=== PATIENT | female | born 1955 | race Caucasian/White ===

== ENCOUNTER → 2020-04-22 12:26 | Outpatient (CLI) | payer OTHER, SELFPAY ==
--- NOTE | 2020-04-22 13:08 | CT_ITS ---
STUDY: CT ABDOMEN AND PELVIS WITHOUT CONTRAST REASON FOR EXAM: Female, 64 years old. Left abdomen pain, recurrent UTIs. Prior appendectomy, diabetes. Patient is also complaining of SOB, cough and sore throat. RADIATION DOSAGE (If Supplied By Facility): CTDIvol = ( 17.71 ) mGy, DLP = ( 875.86 ) mGycm TECHNIQUE: Transaxial images were obtained from the dome of the diaphragm to the symphysis pubis without oral contrast, and without intravenous contrast. Sagittal and coronal images were reconstructed. Individualized dose optimization techniques were used for this CT. COMPARISON: None. FINDINGS: Findings suggestive of scarring at the lung bases. Coronary artery calcification. Normal liver. The gallbladder is contracted. Normal spleen. Normal pancreas. Normal bilateral adrenal glands. Normal right kidney. Normal left kidney. Normal visualized stomach. Normal small intestine. Normal colon. The patient is status post appendectomy. There is scattered atherosclerotic calcification of the abdominal aorta, without a demonstrated aneurysm. Normal inferior vena cava. There is borderline retroperitoneal lymphadenopathy with enlarged nodes no greater than 10mm in the short axis diameter. Normal urinary bladder. Normal abdominal wall. There are degenerative changes of the visualized lumbar spine. CT/Abdomen/Pelvis without Cont IMPRESSION: No acute abnormality is seen. Findings suggestion of mild scarring at the lung bases. Electronically Signed: Nigel Fuller, at 14:57 EST , Service support ,
== END ==
PROVIDERS: PCP Nurse Practitioner Adult Health; Referring Provider Urology; Visit Provider Urology
DX: R10.9 Unspecified abdominal pain (principal); N39.0 Urinary tract infection, site not specified
CPT/HCPCS: 74176

== ENCOUNTER → 2021-03-18 12:36 | Outpatient (CLI) | payer OTHER, SELFPAY ==
--- NOTE | 2021-03-18 12:48 | EKG12_ITS ---
Test Reason : PREOP Blood Pressure : / mmHG Vent. Rate : 089 BPM Atrial Rate : 089 BPM P-R Int : 178 ms QRS Dur : 084 ms QT Int : 366 ms P-R-T Axes : 059 005 046 degrees QTc Int : 445 ms Sinus rhythm with Premature supraventricular complexes Low voltage QRS Nonspecific T wave abnormality Abnormal ECG Confirmed by TRACY BEJARANO, VIDAL ([id number]), digital editor ASHOK ALONSO ([id number]) on 03/21/2021 7:28:53 AM Referred By: Victor Manuel Sheehan Confirmed By:VIDAL MOLINA MD
--- NOTE | 2021-03-18 12:59 | CT_ITS ---
STUDY: LEFT LOWER EXTREMITY CT SCAN REASON FOR EXAM: Female, 65 years old. BI PRIMARY OSTEOARTHRITIS OF KNEE RADIATION DOSAGE (If Supplied By Facility): CTDIvol = ( 18.76 ) mGy, DLP = ( 1156.44 ) mGycm. Individualized dose optimization techniques were used for this CT.? TECHNIQUE: Axial multidetector CT scan of the left lower extremity. Coronal and sagittal reformatted images. COMPARISON: None. FINDINGS: Left hip: Mild left hip osteoarthritis. No acute fracture, dislocation or cortical destruction. Visualized intraabdominal/pelvic contents within normal limits. Minimal vascular calcifications. No muscle abnormality. Left knee: Severe medial compartment arthrosis. Mild lateral compartment arthrosis. Mild patellofemoral arthrosis. Small knee joint effusion. Moderate-sized popliteal cyst. Mild soft tissue swelling. No acute fracture, dislocation or cortical disruption. No muscle abnormality. Left ankle: Tiny Achilles enthesophyte. No significant osteoarthritic features. No acute fracture, dislocation or cortical destruction. No acute muscle abnormality. CT/Extremity Lower without Contra IMPRESSION: Left knee osteoarthritis predominating medially Left knee small joint effusion, moderate sized popliteal cyst and mild swelling Mild left hip osteoarthritis Tiny left Achilles enthesophyte Electronically Signed: Warren Nance DO at 13:42 EDT Tel , Service support ,
[2021-03-18 13:50] LABS: Absolute Lymphocyte Count 2.66 X10^3/uL (0.83-4.51); Absolute Neutrophil Count 6.8 X10^3/uL (2.0-7.7); Basophil# 0.04 X10^3/uL; Basophil% 0.4 % (0-1); Eosinophil# 0.25 X10^3/uL; Eosinophils% 2.4 % (0-5); Hematocrit 41.1 % (37-47); Hemoglobin 12.4 g/dL (12.0-15.0); Lymphocyte # 2.66 X10^3/ul (0.83-4.51); Lymphocyte % 25.1 % (19-41); Mean Corp Hgb Conc 30.2 g/dL (32-36); Mean Corpuscular Hgb 23.5 pg (27.0-32.0); Mean Platelet Vol. 8.8 fl (6.2-12.0); Monocyte# 0.77 X10^3/uL; Monocyte% 7.3 % (0-10); NRBC Flagged by Analyzer 0 % (0-5); Neutrophil # 6.83 X10^3/uL (2.7-7.7); Neutrophil % 64.3 % (47-70); Platelet Count 353 K/mm3 (150-450); RBC Distribution Width CV 16.9 % (11.6-14.6); RBC Distribution Width SD 47.3 fl (35.1-43.9); Red Blood Count 5.27 M/mm3 (4.2-5.4); White Blood Count 10.6 K/mm3 (4.4-11.0)
[2021-03-18 14:10] LABS: Hemoglobin A1c 6.7 % (3.8-5.6)
[2021-03-18 14:25] LABS: Anion Gap 7 (5-15); BUN 12 mg/dL (7-18); BUN/Creat Ratio 17.5 RATIO (10-20); Calcium,Total 9.3 mg/dL (8.5-10.1); Chloride 101 mmol/L (98-107); Creatinine, Serum 0.69 mg/dL (0.55-1.02); EST Glomerular Filtration Rate 92 mL/min (>60); Est Glom Filt Rate - Afr Amer 111 mL/min (>60); Glucose 112 mg/dL (74-106); Potassium 3.9 mmol/L (3.5-5.1); Sodium Level 137 mmol/L (136-145)
== END ==
PROVIDERS: PCP Nurse Practitioner Adult Health; Referring Provider Physician Assistant; Visit Provider Physician Assistant
DX: M17.0 Bilateral primary osteoarthritis of knee (principal); Z01.818 Encounter for other preprocedural examination; Z01.810 Encounter for preprocedural cardiovascular examination
CPT/HCPCS: 36415; 73700; 80048; 83036; 85025; 93005

== ENCOUNTER → 2021-03-30 | Outpatient (CLI) | payer OTHER, SELFPAY ==
--- NOTE | 2021-03-30 | KNEE_PTH ---
PATIENT: GE SANDERS [facility] U#:[id number] AGE/SX: 65/F ROOM: RE03/30/[address]: Dr. Leo Arnold DO : 1955 BED: DIS: 03/30/2021 SPEC #: [id number] RECD: 03/30/21 15:06 STATUS: MIRELA REQ #: [id number] RAMESH: 03/30/21 00:[address]: Leo Arnold DEPT: SURGICAL PATHOLOGY RECD BY: Yolande Clements ENTERED: 03/31/21 09:04 SP TYPE: TOTAL KNEE OTHR DR: LAUREEN Prado [facility] Tissues: Knee, NOS Procedures: Decalcification bone/plaque Surgery Specimen Level IV HEADER OPERATION: Robotic-assisted left total knee arthroscopy PRE-OP DIAGNOSIS: Osteoarthritis of left knee TISSUE SUBMITTED: Bone left knee MICROSCOPIC DIAGNOSIS Bone and tissue of left knee, total knee resection: Severe degenerative joint disease. Mild synovial hyperplasia. AM:leidy 04/06/2021 MICROSCOPIC DESCRIPTION Slides are reviewed. GROSS DESCRIPTION Received is one container designated bone and soft tissue left knee. The specimen consists of multiple fragments of ryan-yellow bone measuring in aggregate 9 x 8 x 3.5 cm. Also in the specimen container are multiple fragments of yellow-white soft tissue measuring in aggregate 7 x 6 x 3 cm. A number of bony fragments contain articular surfaces consistent with tibial plateau and femoral condyle and displaying prominent osteophyte formation and bone erosion. Small Craft Operator sections are submitted in two cassettes as follows: 1 - soft tissue, 2 - bone after decalcification. / SJ:leidy 03/31/21 TC:5 [facility]: [id number]
== END | disposition home or self-care (01) ==
PROVIDERS: PCP Nurse Practitioner Adult Health; Visit Provider Orthopaedic Surgery
DX: M17.12 Unilateral primary osteoarthritis, left knee (principal)
CPT/HCPCS: 88305; 88311

== ENCOUNTER → 2022-04-12 | Outpatient (CLI) | payer OTHER, SELFPAY ==
--- NOTE | 2022-04-12 15:05 | US_ITS ---
EXAM: US RETROPERITONEAL LIMITED, RENAL CLINICAL INDICATION: UTI TECHNIQUE: Limited grayscale and color Doppler sonographic evaluation of the retroperitoneum was performed. This report was created using [employer] report [employer] technology. COMPARISON: None. FINDINGS: RIGHT KIDNEY: Right kidney measures 10 cm in length. No hydronephrosis. No shadowing calculus. No perinephric collection is demonstrated. LEFT KIDNEY: Left kidney measures 13.3 cm in length. No hydronephrosis. No shadowing calculus. No perinephric collection is demonstrated. BLADDER: Urinary bladder is normal. OTHER FINDINGS: Liver echogenicity appears increased suggesting diffuse parenchymal liver disease, likely steatosis. US/Kidney and Bladder IMPRESSION: Normal renal ultrasound. Parenchymal liver disease. Electronically Signed: Thai Nuñez MD at 16:15 EDT ,
== END | disposition home or self-care (01) ==
LOC: US 15:02
PROVIDERS: PCP Nurse Practitioner Adult Health; Referring Provider Urology; Visit Provider Urology
DX: N39.0 Urinary tract infection, site not specified (principal)
CPT/HCPCS: 76770

== ENCOUNTER 2023-01-05 17:38 | Inpatient (IN) | payer MEDICARE, SELFPAY ==
[2023-01-05 17:44] VITALS: BP 110/71; PULSE 87; RESP 14; TEMP 36.2; O2SAT 92
[2023-01-05 20:01] VITALS: BMI 36.4
--- NOTE | 2023-01-05 20:26 | ED.VIS.CHEST ---
HPI History of Present Illness Chief Complaint: Weakness Detail of Chief Complaint: Indigestion. 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 Previously was on H2 taras. That was decreased. States the last several days she has had midsternal indigestion. Was seen at [place] and evaluation was discharged home. She has been using Pepto-Bismol and Tums and now has been giving her as much relief. Worse with eating. She is able to swallow. Denies any fever. No cardiac history. Prior Similar Symptoms: Yes Recent Illness/Hospitalization: No CVD Risk Factors: Negative for Hypertension PE Risk Factors: Negative for Recent Travel/Surgery, Recent Immobilization, Prior DVT or PE, Cancer or OCP + Smoking + >/=35 TAD Risk Factors: Negative for Marfan's Syndrome PFSH PFSH Home Medications duloxetine 30 mg capsule,delayed release 30 mg PO DAILY 08/11/16 [History Last Taken Unknown] glipizide 10 mg tablet, extended release 24 hr (Glucotrol XL) 10 mg PO BID 08/11/16 [History Last Taken Unknown] hydrochlorothiazide 25 mg tablet 25 mg PO DAILY 08/11/16 [History Last Taken Unknown] levothyroxine 125 mcg tablet 125 mcg PO DAILY 08/11/16 [History Last Taken Unknown] losartan 50 mg-hydrochlorothiazide 12.5 mg tablet 1 ea PO DAILY 08/11/16 [History Last Taken Unknown] pramipexole 0.5 mg tablet (Mirapex) 0.5 mg PO QHS 08/11/16 [History Last Taken Unknown] sitagliptin phosphate 50 mg-metformin 1,000 mg tablet (Janumet) 1 tab PO BIDCM 08/11/16 [History Last Taken Unknown] metformin 1,000 mg tablet 1,000 mg PO BID 01/05/23 [History Last Taken Unknown] Allergy/AdvReac Type Severity Reaction Status Date / Time clarithromycin [From Biaxin] AdvReac Other Verified 01/05/23 17:43 moexipril [From Univasc] AdvReac Other Verified 01/05/23 17:43 sulfamethoxazole AdvReac Other Verified 01/05/23 17:43 [From Bactrim] trimethoprim [From Bactrim] AdvReac Other Verified 01/05/23 17:43 Social History Smoking Status: Former smoker ROS ROS ED ROS Narrative In just Review of Systems ROS Unobtainable: Denies due to encephalopathy Constitutional Constitutional ED: Denies chills Eyes Eyes: Reports none ENT ENT ED: Denies ear pain Cardiovascular Cardiovascular: Reports chest pain; Denies palpitations or racing heartbeat Respiratory/Chest Respiratory/Chest: Denies cough or dyspnea Gastrointestinal Gastrointestinal: Denies abdominal pain, constipation, diarrhea, melena, nausea or vomiting Genitourinary Genitourinary ED: Denies dysuria Musculoskeletal Musculoskeletal: Denies arthralgias Integumentary Denies abscess Neurologic Neurologic: Denies headache(s) Psychiatric Psychiatric: Denies anxiety Endocrine Endocrinology: Denies cold intolerance Hematologic/Lymphatic Hematologic/Lymphatic: Denies easy bleeding Allergic/Immunologic Allergic/Immunologic ED: Denies mouth swelling EXAM Physical Exam Narrative Exam Narrative: Female no acute distress. Vital signs stable afebrile. HEENT exam unremarkable. Neck nontender. Lungs clear to auscultation bilaterally. Heart regular rhythm no murmur. Abdomen soft nontender. Normal bowel sounds no peritoneal signs. Moving all 4 extremities. Calves are nontender that edema or cords. Equal symmetrical radial pulses. Chest wall nontender. She is awake and alert. No focal motor deficits. Const Vital Signs: 01/05/23 17:44 01/05/23 20:00 01/05/23 20:24 Temperature 97.1 F L Temperature Source Temporal Pulse Rate 87 Respiratory Rate 14 Respiratory Effort Normal Non-Labored Respiratory Pattern Normal Blood Pressure 110/71 Blood Pressure Mean 84 Pulse Ox 92 Oxygen Delivery Method Room Air Room Air Positive well nourished and well developed; Negative for cachectic, contractures or unkempt General Appearance ED: well developed and NAD; Negative for unkempt, cachectic, contractures or pallor Nutritional Appearance: Negative for cachectic HEENT Reports moist mucous membranes normocephalic and atraumatic; Negative for trauma or tenderness Eyes PERRL and EOMs intact bilaterally General Eye ED: Negative for pale conjunctiva or scleral icterus Neck no lymphadenopathy, supple and no JVD General: Negative for tenderness Chest Wall inspection of chest normal and palpation of chest normal Chest: Negative for tenderness Resp normal respiratory effort and clear to auscultation bilaterally Effort and Inspection: Negative for respiratory distress Auscultation: Negative for rales, rhonchi or wheezes Cardio regular rate, regular rhythm, S1 normal heart sound, S2 normal heart sound and no murmurs Peripheral Pulses: pulses 2+ throughout GI normal to inspection, nondistended, normoactive bowel sounds, soft to palpation, non-tender, non-distended and no masses Auscultation: Negative for hyperactive bowel sounds Back/Spine no CVA tenderness and no thoracic nor lumbar tenderness General Back: Negative for CVA tenderness Cervical Spine: Negative for cervical spine tenderness Extremity normal to inspection General Extremety ED: Negative for edema, pulses abnormal or tenderness General Extremity: Negative for edema or pulses abnormal Neuro oriented x3 and CN's II-XII intact bilaterally Sensorium / Orientation: awake, alert, oriented to person, oriented to place and oriented to time; Negative for confused, lethargic or stuporous Psych mental status grossly normal Appearance: Negative for unkempt Attitude: No agitated Mood & Affect: Negative for depressed, anxious or tearful Skin no rashes or lesions noted and no wounds General Skin Exam: Negative for jaundice or pallor Rashes: No rashes noted Trauma: Negative for abrasion or laceration Heart Score History: Slightly/Non-Suspicious ECG: Normal Age: >/= 65 years Risk Factors: 1 or 2 Risk Factors Troponin: </= Normal Limit Score: 3 MDM MDM MDM Narrative Medical decision making narrative: 67-year-old diabetic female with a history of Anna's. No cardiac history. Has not had midsternal chest pain sounds like indigestion. She is able to swallow I gave her a glass of water. Does not appear to be type of esophageal obstruction. She undergo cardiac work-up however I think this is GI. She will be given Protonix IV and a GI cocktail. Repeat exam at 10:30 PM patient resting comfortably. Still has discomfort. GI cocktail did limited relief. She and I went over test results. With her abnormal EKG and elevated troponin she will be admitted for further cardiac evaluation. I will have them placed Nitropaste. She also be given aspirin. History & Record Review Discussion w/independent historian: Patient Lab Data Attestation: I reviewed the patient's lab results. Lab results narrative: CBC shows white count 13. H&H 14 and 45. Platelets 334. Electrolytes show a gap of 9. BUN and creatinine 26 0.9. Glucose 142. Troponins elevated 148. Chest x-ray is unremarkable. Labs: Laboratory Results - last 24 hr 01/05/23 20:40 WBC 13.0 H RBC 5.57 H Hgb 14.5 Hct 45.5 MCV 81.7 MCH 26.0 L MCHC 31.9 L RDW Std Deviation 48.7 H RDW Coeff of Jonel 16.4 H Plt Count 334 MPV 9.1 Immature Gran % (Auto) 0.500 Neut % (Auto) 72.9 H Lymph % (Auto) 19.5 Mccormick % (Auto) 6.1 Eos % (Auto) 0.7 Baso % (Auto) 0.3 Absolute Neuts (auto) 9.5 H Absolute Lymphs (auto) 2.53 Nucleated RBC % 0 Sodium 136 Potassium 3.7 Chloride 97 L Carbon Dioxide 30.0 Anion Gap 9 BUN 26 H Creatinine 0.95 Estim Creat Clear Calc 57.41 Est GFR (MDRD) Af Amer 76 Est GFR (MDRD) Non-Af 63 BUN/Creatinine Ratio 27.3 H Glucose 142 H Calcium 9.6 Troponin I High Sens 148 H* Radiography Chest X-Ray - ED: Read by ED Physician, Read by Radiologist, Mediastinum, Bony Structures, No Acute Disease and Chronic Changes Diagnostic Testing: Clinical Impression(s) from Imaging Studies Chest X-Ray 01/05/23 20:45 IMPRESSION: Mild hyperinflation and discoid atelectasis or scarring in the left lower lobe. No acute cardiopulmonary pathology Electronically Signed: Houston Tate MD at 21:10 EDT , Chest x-ray, portable, single view shows no acute abnormality. Normal cardiac silhouette. Normal mediastinum. Interpreted both by the radiologist and myself. Rhythm Strip Rhythm Strip: Sinus Rhythm Rate: 93 Ectopy: None EKG Initial EKG: Attestation: I personally reviewed and interpreted this EKG as follows: Interpretation: Sinus Rhythm and No Acute Injury Pattern Comments: Normal sinus rhythm. Rate of 93. No acute signs of ST elevation. There is some ST flattening in the lateral leads V1 through V6. Discharge Plan Dx/Rx/DC Orders Clinical Impression: Elevated troponin, History of diabetes mellitus, Chest pain Disposition Disposition: Acute Care Hospital [facility]
--- NOTE | 2023-01-05 20:45 | RAD_ITS ---
STUDY: X-RAY CHEST REASON FOR EXAM: Female, 67 years old. chest pain TECHNIQUE: AP portable COMPARISON: None. FINDINGS: Lungs are mildly hyperinflated. Minor discoid atelectasis or scarring in left lower lobe.. There is no demonstrated pleural abnormality. Normal size heart. Normal mediastinum and abigail. Normal visualized pulmonary arteries. Normal visualized aortic arch and descending thoracic aorta. Normal visualized thoracic spine. Normal visualized ribs, clavicles, and shoulders. Postop change status post cervical fusion. There is no demonstrated abnormality of the visualized soft tissue structures of the upper abdomen. RAD/Chest 1 View (Portable) IMPRESSION: Mild hyperinflation and discoid atelectasis or scarring in the left lower lobe. No acute cardiopulmonary pathology Electronically Signed: Houston Tate MD at 21:10 EDT ,
[2023-01-05 20:50] LABS: Absolute Lymphocyte Count 2.53 X10^3/uL (0.83-4.51); Absolute Neutrophil Count 9.5 X10^3/uL (2.0-7.7); Basophil# 0.04 X10^3/uL; Basophil% 0.3 % (0-1); Eosinophil# 0.09 X10^3/uL; Eosinophils% 0.7 % (0-5); Hematocrit 45.5 % (37-47); Hemoglobin 14.5 g/dL (12.0-15.0); Lymphocyte # 2.53 X10^3/ul (0.83-4.51); Lymphocyte % 19.5 % (19-41); Mean Corp Hgb Conc 31.9 g/dL (32-36); Mean Corpuscular Volume 81.7 fL (81-99); Mean Platelet Vol. 9.1 fl (6.2-12.0); Monocyte# 0.79 X10^3/uL; Monocyte% 6.1 % (0-10); NRBC Flagged by Analyzer 0 % (0-5); Neutrophil # 9.48 X10^3/uL (2.7-7.7); Neutrophil % 72.9 % (47-70); Platelet Count 334 K/mm3 (150-450); RBC Distribution Width CV 16.4 % (11.6-14.6); RBC Distribution Width SD 48.7 fl (35.1-43.9); Red Blood Count 5.57 M/mm3 (4.2-5.4)
[2023-01-05] MEDS: Mag Hydrox/Al Hydrox/Simeth 30 ML UDC PO (20:53)
[2023-01-05 21:00] VITALS: RESP 16
[2023-01-05 21:16] LABS: Anion Gap 9 (5-15); BUN 26 mg/dL (7-18); BUN/Creat Ratio 27.3 RATIO (10-20); Calcium,Total 9.6 mg/dL (8.5-10.1); Chloride 97 mmol/L (98-107); Creatinine, Serum 0.95 mg/dL (0.55-1.02); EST Glomerular Filtration Rate 63 mL/min (>60); Est Glom Filt Rate - Afr Amer 76 mL/min (>60); Estimated Creatinine Clearance 57.41 ml/min; Glucose 142 mg/dL (74-106); Potassium 3.7 mmol/L (3.5-5.1); Sodium Level 136 mmol/L (136-145); Troponin-I HS 148 pg/mL (3.0-54.0)
[2023-01-05 22:35] VITALS: BP 128/76; PULSE 88; RESP 19; TEMP 36.3; O2SAT 96
--- NOTE | 2023-01-05 22:35 | HP.PCM.HOS_ITS ---
HPI - General General Date of Admission: 01/05/23 Date of Service: 01/05/23 Chief Complaint: Chest pain HPI Narrative GE SANDERS, is a 67 F with a significant history of Anna's esophagitis and diabetes mellitus who presents emergency department with 5-day history of persistent chest pain. She described chest pain as heartburn. The chest pain radiated into her esophagus where she has a feeling of a lump. She denies any aggravating factors or chest pain. She used to take Pepto-Bismol and Tums which used to give her some relief but ideal presentation she did not have any relief from Pepto-Bismol or Tums so she came to emergency department. Of note 5 days ago patient was evaluated at [facility] for shortness of breath and hypertension. She reported that nothing was done for her at [facility]. [facility] Medical History (Updated 01/06/23 @ 00:38 by Nely Zamarripa) Anemia Barretts esophagus Chronic pain COPD (chronic obstructive pulmonary disease) Diabetes Fibromyalgia Former smoker Hypertension Hyperthyroidism Home Medications duloxetine 30 mg capsule,delayed release 30 mg PO DAILY 08/11/16 [History Last Taken Unknown] glipizide 10 mg tablet, extended release 24 hr (Glucotrol XL) 10 mg PO BID 08/11/16 [History Last Taken Unknown] hydrochlorothiazide 25 mg tablet 25 mg PO DAILY 08/11/16 [History Last Taken Unknown] levothyroxine 125 mcg tablet 125 mcg PO DAILY 08/11/16 [History Last Taken Unknown] losartan 50 mg-hydrochlorothiazide 12.5 mg tablet 1 ea PO DAILY 08/11/16 [History Last Taken Unknown] pramipexole 0.5 mg tablet (Mirapex) 0.5 mg PO QHS 08/11/16 [History Last Taken Unknown] sitagliptin phosphate 50 mg-metformin 1,000 mg tablet (Janumet) 1 tab PO BIDCM 08/11/16 [History Last Taken Unknown] metformin 1,000 mg tablet 1,000 mg PO BID 01/05/23 [History Last Taken Unknown] Allergy/AdvReac Type Severity Reaction Status Date / Time clarithromycin [From Biaxin] AdvReac Other Verified 01/05/23 17:43 moexipril [From Univasc] AdvReac Other Verified 01/05/23 17:43 sulfamethoxazole AdvReac Other Verified 01/05/23 17:43 [From Bactrim] trimethoprim [From Bactrim] AdvReac Other Verified 01/05/23 17:43 Family History (Updated 01/06/23 @ 00:37 by Nely Zamarripa) Father S/P CABG x 3 Social History Smoking Status: Former smoker ROS ROS Narrative Pertinent positives and pertinent negatives as noted in HPI. All other systems were reviewed and are negative Vital Signs Vital Signs Vital Signs: 01/05/23 17:44 01/05/23 20:00 01/05/23 20:24 Temperature 97.1 F L Temperature Source Temporal Pulse Rate 87 Respiratory Rate 14 Respiratory Effort Normal Non-Labored Respiratory Pattern Normal Blood Pressure 110/71 Blood Pressure Mean 84 Pulse Ox 92 Oxygen Delivery Method Room Air Room Air Weight Weight: 105.4 kg Body Mass Index (BMI) 36.4 Physical Exam Narrative Physical exam: General: Well-nourished, well-developed. Head: Normocephalic, atraumatic, no tenderness Eyes: Vision is grossly intact. EOMI ENT, no trauma, moist mucous membranes, no rhinorrhea Neck: Nontender, No thyromegaly. CVS: Regular rate and rhythm. S1-S2 present. No murmur, gallop or rub. Respiratory : clear to auscultation bilaterally, chest wall nontender Abdomen: Soft, nontender, nondistended, normal bowel sounds, no masses : Deferred Back: Nontender, no CVA tenderness, no midline spinal tenderness, deformities, step-offs Extremities: Nontender full range of motion, no trauma Skin: Normal color, no trauma, abrasions Neuro: Alert, oriented, cranial nerves II through XII grossly intact. Psychiatry: Normal mood. Normal affect. Not depressed. Not anxious. Results Lab / Micro Data 01/05/23 20:40 01/05/23 20:40 Labs: Laboratory Results - last 24 hr 01/05/23 20:40: WBC 13.0 H, RBC 5.57 H, Hgb 14.5, Hct 45.5, MCV 81.7, MCH 26.0 L , MCHC 31.9 L, RDW Std Deviation 48.7 H, RDW Coeff of Jonel 16.4 H, Plt Count 334, MPV 9.1, Immature Gran % (Auto) 0.500, Neut % (Auto) 72.9 H, Lymph % (Auto) 19.5, [place] % (Auto) 6.1, Eos % (Auto) 0.7, Baso % (Auto) 0.3, Absolute Neuts (auto) 9.5 H, Absolute Lymphs (auto) 2.53, Nucleated RBC % 0, Sodium 136, Potassium 3.7, Chloride 97 L, Carbon Dioxide 30.0, Anion Gap 9, BUN 26 H, Creatinine 0.95, Estim Creat Clear Calc 57.41, Est GFR (MDRD) Af Amer 76, Est GFR (MDRD) Non-Af 63, BUN/Creatinine Ratio 27.3 H, Glucose 142 H, Calcium 9.6, Troponin I High Sens 148 H* Radiology Impression Chest X-Ray 01/05/23 20:45 IMPRESSION: Mild hyperinflation and discoid atelectasis or scarring in the left lower lobe. No acute cardiopulmonary pathology Electronically Signed: Houston Tate MD at 21:10 EDT , Assessment & Plan Assessment/Plan (1) NSTEMI, initial episode of care: PLAN: Plan Non-STEMI With chest pain and elevated troponin although patient has history of Anna's esophagitis and GERD as differential diagnosis; NSTEMI is also very probable. Essentially Lovenox x1 dose ordered. Patient received full dose aspirin in the emergency department. Daily aspirin continued. GI cocktail ordered emergency department did not have any appreciable effect. Nitroglycerin paste to the emergency department and continued. EKG showed anterolateral ST depressions and T wave flattening. Radiologist impression of chest x-ray: Mild hyperinflation and discoid atelectasis or scarring in the left lower lobe. No acute cardiopulmonary pathology Hospitalist independent interpretation of chest x-ray: Agrees with radiology interpretation. Place on a monitored bed at progressive care unit ASA 81 mg p.o. daily ordered We will check lipid panel. Stat EKG as needed for chest pain Keep n.p.o. after midnight. Cardiology consult. Diabetes mellitus Blood glucose is stable Hold home hypoglycemic regimen Cardiac diabetic diet. N.p.o. after midnight. Monitor Accu-Cheks Correction scale insulin ordered. Hypertension Blood pressure is not within goal Home blood pressure medication continued. Trend blood pressure and adjust blood pressure medications. DVT prophylaxis ordered: Received therapeutic dose of Lovenox emergency department. Time spent in the patient's overall evaluation,decision-making process, review of diagnostic data, adjustment of management, discussion with other providers, nursing nursing and ancillary staff involved in patient's care documentation, 65 minutes. Charges/Coding Visit Charges Inpatient E&M: 04958 Init Hosp L3
[2023-01-05 23:00] VITALS: BP 128/76; PULSE 88; RESP 14; O2SAT 95
[2023-01-05 23:02] VITALS: BP 128/76; PULSE 90
[2023-01-05] MEDS: Nitroglycerin Oint 1 INCH PACKET TD (23:02)
[2023-01-05] MEDS: Aspirin 325 MG Tablet PO (23:02)
--- NOTE | 2023-01-05 23:03 | EKG12_ITS ---
Test Reason : PCI Blood Pressure : / mmHG Vent. Rate : 052 BPM Atrial Rate : 052 BPM P-R Int : 212 ms QRS Dur : 094 ms QT Int : 518 ms P-R-T Axes : 077 -34 -88 degrees QTc Int : 481 ms Sinus bradycardia with 1st degree A-V block Left axis deviation Pulmonary disease pattern Confirmed by TRACY BEJARANO, VIDAL ([id number]), editor index ASHOK ALONSO ([id number]) on 01/09/2023 7:15:38 AM Referred By: Jakub Dennis Confirmed By:VIDAL MOLINA MD
--- NOTE | 2023-01-05 23:52 | ECHOCS_ITS ---
Reason For Study: NSTEMI Procedure This was a 2D Doppler, Color Flow transthoracic echocardiogram. The study was technically difficult. Contrast injection was performed. Exam performed portable in patient room. Left Ventricle Normal LV size. Mild concentric left ventricular hypertrophy. The left ventricular ejection fraction is 40 %. Posterior and inferior hypokinesis. Right Ventricle Normal right ventricle. Atria The left and right atria are normal. Mitral Valve Trivial mitral valve insufficiency. Tricuspid Valve Normal tricuspid valve. Aortic Valve Normal aortic valve. Pulmonic Valve The pulmonic valve is not well visualized. Great Vessels Normal sized aortic root. Pericardium/Pleural No pericardial effusion. Medication Diluted definity 2ml given slow IV push to enhance endocardial definition. MMode/2D Measurements & Calculations LVIDd: 5.6 cm IVSd: 1.2 cm Ao root diam: 2.7 cm LVIDs: 4.3 cm LVPWd: 1.1 cm FS: 22.2 % LAV(MOD-bp): 37.6 ml LVAd ap4: 35.6 cm2 SV(MOD-sp4): 43.0 ml LAV(MOD-bp) Indexed: 17.7 ml/m2 LVLd ap4: 8.5 cm LAV(MOD-sp2): 29.1 ml EDV(MOD-sp4): 123.8 ml LAV(MOD-sp4): 43.5 ml EDV(sp4-el): 125.9 ml LVAs ap4: 26.7 cm2 LVLs ap4: 7.6 cm ESV(MOD-sp4): 80.8 ml ESV(sp4-el): 79.9 ml EF(MOD-sp4): 34.7 % EF(sp4-el): 36.5 % SV(sp4-el): 46.0 ml LA A4 area: 16.5 cm2 LA dimension(2D): 4.2 cm RA A4 area: 12.1 cm2 TAPSE: 2.1 cm Time Measurements MV dec time: 0.17 sec Doppler Measurements & Calculations MV E max ramesh: 41.3 cm/sec Lat Peak E' Ramesh: 14.8 cm/sec Med Peak E' Ramesh: 5.3 cm/sec MV A max ramesh: 76.8 cm/sec E/E' lat: 2.8 E/E' med: 7.7 MV E/A: 0.54 MV V2 max: 59.9 cm/sec MV dec slope: 242.7 cm/sec2 Ao V2 max: 117.9 cm/sec MV max P.4 mmHg Ao max P.6 mmHg MV V2 mean: 36.6 cm/sec Ao V2 mean: 83.6 cm/sec MV mean P.58 mmHg Ao mean P.2 mmHg MV V2 VTI: 18.5 cm Ao V2 VTI: 24.3 cm AV (velocity ratio): 0.75 LV V1 max: 92.8 cm/sec PA V2 max: 134.6 cm/sec LV V1 max P.4 mmHg PA V2 mean: 84.0 cm/sec LV V1 mean P.1 mmHg LV V1 mean: 68.8 cm/sec LV V1 VTI: 18.3 cm ECHO/Echo Complete W/ Contrast Interpretation Summary Mild concentric left ventricular hypertrophy. The left ventricular ejection fraction is 40-45 %. Posterior and inferior hypokinesis. The study was technically difficult. Ordering Physician: Jakub Dennis Referring Physician: Jakub Dennis Performed By: Sariah Martínez RCS
[2023-01-06] VITALS (10 sets, daily range): BP systolic 106–138; BP diastolic 58–77; PULSE 70–95; RESP 12–20; TEMP 36.7–36.8; O2SAT 92–95; BMI 35.2
[2023-01-06 00:32] LABS: Bedside Glucose 110 mg/dL (74-106)
[2023-01-06] MEDS: Enoxaparin 100 MG/ML Syringe SC (00:40)
[2023-01-06] MEDS: Zolpidem Tartrate 5 MG Tablet PO ×2 (01:44→21:26)
[2023-01-06 02:19] LABS: Troponin-I HS 753 pg/mL (3.0-54.0)
[2023-01-06 03:13] LABS: Absolute Lymphocyte Count 3.33 X10^3/uL (0.83-4.51); Absolute Neutrophil Count 6.9 X10^3/uL (2.0-7.7); Basophil# 0.06 X10^3/uL; Basophil% 0.5 % (0-1); Eosinophil# 0.13 X10^3/uL; Eosinophils% 1.2 % (0-5); Hematocrit 43.7 % (37-47); Hemoglobin 13.8 g/dL (12.0-15.0); Lymphocyte # 3.33 X10^3/ul (0.83-4.51); Lymphocyte % 29.8 % (19-41); Mean Corp Hgb Conc 31.6 g/dL (32-36); Mean Corpuscular Hgb 25.8 pg (27.0-32.0); Mean Corpuscular Volume 81.7 fL (81-99); Mean Platelet Vol. 9.3 fl (6.2-12.0); Monocyte# 0.74 X10^3/uL; Monocyte% 6.6 % (0-10); NRBC Flagged by Analyzer 0 % (0-5); Neutrophil # 6.89 X10^3/uL (2.7-7.7); Neutrophil % 61.5 % (47-70); Platelet Count 314 K/mm3 (150-450); RBC Distribution Width CV 16.2 % (11.6-14.6); RBC Distribution Width SD 48.2 fl (35.1-43.9); Red Blood Count 5.35 M/mm3 (4.2-5.4); White Blood Count 11.2 K/mm3 (4.4-11.0)
[2023-01-06 04:13] LABS: Anion Gap 7 (5-15); BUN 22 mg/dL (7-18); BUN/Creat Ratio 32.1 RATIO (10-20); Chloride 101 mmol/L (98-107); Cholesterol 203 mg/dL (200); Creatinine, Serum 0.69 mg/dL (0.55-1.02); EST Glomerular Filtration Rate 91 mL/min (>60); Est Glom Filt Rate - Afr Amer 111 mL/min (>60); Estimated Creatinine Clearance 79.05 ml/min; Glucose 105 mg/dL (74-106); High Density Lipoprotein 53 mg/dL; Potassium 3.7 mmol/L (3.5-5.1); Sodium Level 139 mmol/L (136-145); Triglycerides 214 mg/dL; Very Low Density Lipoprotein 43 mg/dL (5-40)
[2023-01-06 04:34] LABS: Troponin-I HS 814 pg/mL (3.0-54.0)
[2023-01-06] MEDS: Levothyroxine 125 MCG Tablet PO (06:35)
[2023-01-06] MEDS: Nitroglycerin Oint 1 INCH PACKET TD ×2 (06:35→11:59)
[2023-01-06 07:07] LABS: Bedside Glucose 135 mg/dL (74-106)
--- NOTE | 2023-01-06 08:36 | PCM.PN.HOSP ---
Reason for Visit Reason for Visit: Diagnoses Non-ST elevation (NSTEMI) myocardial infarction (01/05/23) Subjective Subjective Patient reports no chest pain at present, does have nitro patch on reports she just got up and ambulated to bathroom was feeling dizzy and just sat back down still feeling slightly dizzy, blood pressure 106/67 with a heart rate within normal limits and no abnormalities on telemetry and O2 sat of 90 to 91%. Wiped off Nitropaste and patient was feeling better from a dizzy perspective but still has headache. Discussed with patient's RN, will monitor closely but nitro can be as needed for now. Presently no chest pain or shortness of breath or swelling in extremities Objective Data Objective Data Vital Signs: Vital Signs Temp Pulse Resp BP Pulse Ox O2 Del Method O2 Flow Rate 98.2 F 95 16 112/67 92 Nasal Cannula 2 01/06/23 06:30 01/06/23 06:30 01/06/23 06:30 01/06/23 06:30 01/06/23 06:30 01/06/23 08:12 01/06/23 08:12 Oxygen Flow Rate (L/min) 2 Oxygen Delivery Method Nasal Cannula Weight: 102 kg Body Mass Index (BMI) 35.2 Intake & Output: Intake and Output for Last 24 Hours 01/04/23 01/05/23 01/06/23 23:59 23:59 23:59 Intake Total 110 / 110 120 / 120 Balance 110 / 110 120 / 120 Lab / Micro Data 01/06/23 03:05 01/06/23 03:05 Labs: Laboratory Results - last 24 hr 01/05/23 20:40: WBC 13.0 H, RBC 5.57 H, Hgb 14.5, Hct 45.5, MCV 81.7, MCH 26.0 L, MCHC 31.9 L, RDW Std Deviation 48.7 H, RDW Coeff of Jonel 16.4 H, Plt Count 334, MPV 9.1, Immature Gran % (Auto) 0.500, Neut % (Auto) 72.9 H, Lymph % (Auto) 19.5, [place] % (Auto) 6.1, Eos % (Auto) 0.7, Baso % (Auto) 0.3, Absolute Neuts (auto) 9.5 H, Absolute Lymphs (auto) 2.53, Nucleated RBC % 0, Sodium 136, Potassium 3.7, Chloride 97 L, Carbon Dioxide 30.0, Anion Gap 9, BUN 26 H, Creatinine 0.95, Estim Creat Clear Calc 57.41, Est GFR (MDRD) Af Amer 76, Est GFR (MDRD) Non-Af 63, BUN/Creatinine Ratio 27.3 H, Glucose 142 H, Calcium 9.6, Troponin I High Sens 148 H* 01/06/23 00:04: POC Glucose 110 H 01/06/23 01:15: Troponin I High Sens 753 H* 01/06/23 03:05: WBC 11.2 H, RBC 5.35, Hgb 13.8, Hct 43.7, MCV 81.7, MCH 25.8 L, MCHC 31.6 L, RDW Std Deviation 48.2 H, RDW Coeff of Jonel 16.2 H, Plt Count 314, MPV 9.3, Immature Gran % (Auto) 0.400, Neut % (Auto) 61.5, Lymph % (Auto) 29.8, [place] % (Auto) 6.6, Eos % (Auto) 1.2, Baso % (Auto) 0.5, Absolute Neuts (auto) 6.9, Absolute Lymphs (auto) 3.33, Nucleated RBC % 0, Sodium 139, Potassium 3.7, Chloride 101, Carbon Dioxide 31.0, Anion Gap 7, BUN 22 H, Creatinine 0.69, Estim Creat Clear Calc 79.05, Est GFR (MDRD) Af Amer 111, Est GFR (MDRD) Non-Af 91, BUN/Creatinine Ratio 32.1 H, Glucose 105, Calcium 9.0, Troponin I High Sens 814 H*, Triglycerides 214 H, Cholesterol 203 H, LDL Cholesterol 107, VLDL Cholesterol 43 H, HDL Cholesterol 53 01/06/23 06:27: POC Glucose 135 H Radiography Diagnostic Testing: Radiology Impression Chest X-Ray 01/05/23 20:45 IMPRESSION: Mild hyperinflation and discoid atelectasis or scarring in the left lower lobe. No acute cardiopulmonary pathology Electronically Signed: Houston Tate MD at 21:10 EDT Reading Location ID and State: [facility]– [place] / [place] , Service support , Rhythm Strip Rhythm Strip: Sinus Rhythm Rate: 93 Ectopy: None Physical Exam Narrative General: Alert, oriented, no apparent distress HEENT: Atraumatic, normocephalic Eyes: Anicteric, normal conjunctiva, extraocular movements grossly intact Neck: Supple Respiratory: Clear to auscultation bilaterally, normal respiratory effort Cardiovascular: Regular rate and rhythm GI: Soft, nontender, nondistended Extremities: No edema Musculoskeletal: Moving all extremities Neuro: No overt focal neurological deficits Skin: No rashes appreciated Psych: Cooperative Assessment & Plan Assessment/Plan (1) NSTEMI, initial episode of care: PLAN: Plan #Non-STEMI -Type 1 vs type 2 -Trop in ED 148 and updtrended to 814 -EKG in ED w/ anterolateral ST depressions and T wave flattening -Full dose lovenox -full dose asa -Daily asa -Nitro paste -We will check lipid panel. -Stat EKG as needed for chest pain -Keep n.p.o. after midnight -Cardiology consult. -01/06: LDL 107 with triglycerides of 214 and total cholesterol 203. Patient evaluated by cardiology, patient heart cath on Sunday. Patient got dizzy with Nitropaste on, no chest pain, will make this as needed #Leukocytosis -Suspect reactive -Downtrending #Diabetes mellitus type II -Blood glucose is stable -Hold home hypoglycemic regimen -Cardiac diabetic diet. N.p.o. after midnight. -Monitor Accu-Cheks -Correction scale insulin ordered. -01/06: Last A1c 6.7 in 2020, will order A1c #Hypertension -Blood pressure is not within goal -Home blood pressure medication continued. -Trend blood pressure and adjust blood pressure medications. -01/06: Continue HCTZ, losartan. Patient has heart cath on Sunday, given her BP on the low side with heart cath pending we will hold losartan for #Hypothyroidism -Continue Synthroid -We will check TSH DVT prophylaxis ordered: Received therapeutic dose of Lovenox emergency department. Time spent in the patient's overall evaluation,decision-making process, review of diagnostic data, adjustment of management, discussion with other providers, nursing nursing and ancillary staff involved in patient's care documentation, 51 minutes. Charges/Coding Visit Charges Inpatient E&M: 42484 [facility] [place] [facility] L3
[2023-01-06] MEDS: Losartan Potassium 50 MG Tablet PO (09:37)
[2023-01-06] MEDS: DULoxetine Hcl 30 MG Capsule PO ×2 (09:37→21:32)
[2023-01-06] MEDS: hydroCHLOROthiazide 25 MG Tablet PO (09:37)
[2023-01-06] MEDS: Aspirin 81 MG TAB.CHEW PO (09:37)
--- NOTE | 2023-01-06 11:12 | CON.PCM.CA_ITS ---
Assessment & Plan Assessment/Plan (1) NSTEMI, initial episode of care: PLAN: Presently pain-free. Continue aspirin. Start low-dose beta-blockers. Nitrates. Check echo. Recommend cardiac catheterization with coronary angiography and possible revascularization. Risks benefits and alternatives explained. She understand these and wishes to proceed. She will be scheduled for Sunday. (2) Chest pain: PLAN: See #1 above. (3) History of diabetes mellitus: PLAN: As per internal medicine. (4) Dyslipidemia: PLAN: Start statins. HPI Consult Data Date of Consult: 01/06/23 HPI Narrative Reason for Consultation: Chest pain and elevated troponin. HPI Narrative: Patient has past medical history significant for hypertension, Anna's esophagus, COPD, diabetes mellitus and fibromyalgia. She presented to the emergency room with complaints of chest pain that started about a week ago. Acc ording to her, it was intermittent initially but more persistent yesterday. Describes it as anterior pressure. No radiation to the arm neck or jaw. No associated shortness of breath. No diaphoresis. She was noted to have elevated troponins. Per patient, yesterday she realized that exertion made her chest discomfort worse. [facility] Medical History (Updated 01/06/23 @ 11:[address] Allegra Genao MD) Anemia Barretts esophagus Chronic pain COPD (chronic obstructive pulmonary disease) Diabetes Fibromyalgia Former smoker Hypertension Hyperthyroidism Home Medications duloxetine 30 mg capsule,delayed release 30 mg PO DAILY 08/11/16 [History Last Taken Unknown] glipizide 10 mg tablet, extended release 24 hr (Glucotrol XL) 10 mg PO BID 08/11/16 [History Last Taken Unknown] hydrochlorothiazide 25 mg tablet 25 mg PO DAILY 08/11/16 [History Last Taken Unknown] levothyroxine 125 mcg tablet 125 mcg PO DAILY 08/11/16 [History Last Taken Unknown] losartan 50 mg-hydrochlorothiazide 12.5 mg tablet 1 ea PO DAILY 08/11/16 [History Last Taken Unknown] pramipexole 0.5 mg tablet (Mirapex) 0.5 mg PO QHS 08/11/16 [History Last Taken Unknown] sitagliptin phosphate 50 mg-metformin 1,000 mg tablet (Janumet) 1 tab PO BIDCM 08/11/16 [History Last Taken Unknown] metformin 1,000 mg tablet 1,000 mg PO BID 01/05/23 [History Last Taken Unknown] Allergy/AdvReac Type Severity Reaction Status Date / Time clarithromycin [From Biaxin] AdvReac Other Verified 01/05/23 17:43 moexipril [From Univasc] AdvReac Other Verified 01/05/23 17:43 sulfamethoxazole AdvReac Other Verified 01/05/23 17:43 [From Bactrim] trimethoprim [From Bactrim] AdvReac Other Verified 01/05/23 17:43 Family History (Updated 01/06/23 @ 00:37 by Nely Zamarripa) Father S/P CABG x 3 Social History Smoking Status: Former smoker Physical Exam Narrative Comfortable. No distress. Heart sounds 1 and 2 are normal. No murmurs or rubs are noted. Chest clear to auscultation bilaterally. No crepitations. Abdomen soft. Alert oriented x3. No ankle edema noted. Risk Stratification Risk Stratification Applicable: No Objective Data Vital Signs: Vital Signs Temp Pulse Resp BP Pulse Ox O2 Del Method O2 Flow Rate 98.3 F 85 18 122/71 H 94 Nasal Cannula 3 01/06/23 09:32 01/06/23 09:32 01/06/23 09:32 01/06/23 09:32 01/06/23 09:32 01/06/23 09:32 01/06/23 09:32 Oxygen Flow Rate (L/min) 3 Oxygen Delivery Method Nasal Cannula Weight: 224 lb 13.944 oz Body Mass Index (BMI) 35.2 Intake & Output: Intake and Output for Last 24 Hours 01/04/23 01/05/23 01/06/23 23:59 23:59 23:59 Intake Total 110 / 110 120 / 120 Balance 110 / 110 120 / 120 Lab / Micro Data Attestation: I reviewed the patient's lab results. 01/06/23 03:05 01/06/23 03:05 Labs: Laboratory Results - last 24 hr 01/05/23 20:40: WBC 13.0 H, RBC 5.57 H, Hgb 14.5, Hct 45.5, MCV 81.7, MCH 26.0 L , MCHC 31.9 L, RDW Std Deviation 48.7 H, RDW Coeff of Jonel 16.4 H, Plt Count 334, MPV 9.1, Immature Gran % (Auto) 0.500, Neut % (Auto) 72.9 H, Lymph % (Auto) 19.5, [place] % (Auto) 6.1, Eos % (Auto) 0.7, Baso % (Auto) 0.3, Absolute Neuts (auto) 9.5 H, Absolute Lymphs (auto) 2.53, Nucleated RBC % 0, Sodium 136, Potassium 3.7, Chloride 97 L, Carbon Dioxide 30.0, Anion Gap 9, BUN 26 H, Creatinine 0.95, Estim Creat Clear Calc 57.41, Est GFR (MDRD) Af Amer 76, Est GFR (MDRD) Non-Af 63, BUN/Creatinine Ratio 27.3 H, Glucose 142 H, Calcium 9.6, Troponin I High Sens 148 H* 01/06/23 00:04: POC Glucose 110 H 01/06/23 01:15: Troponin I High Sens 753 H* 01/06/23 03:05: WBC 11.2 H, RBC 5.35, Hgb 13.8, Hct 43.7, MCV 81.7, MCH 25.8 L, MCHC 31.6 L, RDW Std Deviation 48.2 H, RDW Coeff of Jonel 16.2 H, Plt Count 314, MPV 9.3, Immature Gran % (Auto) 0.400, Neut % (Auto) 61.5, Lymph % (Auto) 29.8, [place] % (Auto) 6.6, Eos % (Auto) 1.2, Baso % (Auto) 0.5, Absolute Neuts (auto) 6.9, Absolute Lymphs (auto) 3.33, Nucleated RBC % 0, Sodium 139, Potassium 3.7, Chloride 101, Carbon Dioxide 31.0, Anion Gap 7, BUN 22 H, Creatinine 0.69, Estim Creat Clear Calc 79.05, Est GFR (MDRD) Af Amer 111, Est GFR (MDRD) Non-Af 91, BUN/Creatinine Ratio 32.1 H, Glucose 105, Calcium 9.0, Troponin I High Sens 814 H*, Triglycerides 214 H, Cholesterol 203 H, LDL Cholesterol 107, VLDL Cholesterol 43 H, HDL Cholesterol 53 01/06/23 06:27: POC Glucose 135 H Rhythm Strip Rhythm Strip: Sinus Rhythm Rate: 93 Ectopy: None Cardiology Labs/Tests 01/05/23 20:40: WBC 13.0 H, RBC 5.57 H, Hgb 14.5, Hct 45.5, MCV 81.7, MCH 26.0 L , MCHC 31.9 L, Plt Count 334, MPV 9.1, Immature Gran % (Auto) 0.500, Neut % (Auto) 72.9 H, Lymph % (Auto) 19.5, [place] % (Auto) 6.1, Eos % (Auto) 0.7, Baso % (Auto) 0.3, Absolute Neuts (auto) 9.5 H, Nucleated RBC % 0, Sodium 136, Potassium 3.7, Chloride 97 L, Carbon Dioxide 30.0, Anion Gap 9, BUN 26 H, Creatinine 0.95, Est GFR (MDRD) Af Amer 76, Est GFR (MDRD) Non-Af 63, BUN/Creatinine Ratio 27.3 H, Glucose 142 H, Calcium 9.6 01/06/23 03:05: WBC 11.2 H, RBC 5.35, Hgb 13.8, Hct 43.7, MCV 81.7, MCH 25.8 L, MCHC 31.6 L, Plt Count 314, MPV 9.3, Immature Gran % (Auto) 0.400, Neut % (Auto) 61.5, Lymph % (Auto) 29.8, [place] % (Auto) 6.6, Eos % (Auto) 1.2, Baso % (Auto) 0.5, Absolute Neuts (auto) 6.9, Nucleated RBC % 0, Sodium 139, Potassium 3.7, Chloride 101, Carbon Dioxide 31.0, Anion Gap 7, BUN 22 H, Creatinine 0.69, Est GFR (MDRD) Af Amer 111, Est GFR (MDRD) Non-Af 91, BUN/Creatinine Ratio 32.1 H, Glucose 105, Calcium 9.0, Triglycerides 214 H, Cholesterol 203 H, LDL Cho lesterol 107, VLDL Cholesterol 43 H, HDL Cholesterol 53 Rhythm: Sinus EKG: Normal sinus rhythm. Nonspecific ST changes ECHO: Stress Test: Cardiac Cath: PCI: CT Surgery: Holter monitor: EPS: PPM: CXR: Chest CT Scan: Radiography Diagnostic Testing: Radiology Impression Chest X-Ray 01/05/23 20:45 IMPRESSION: Mild hyperinflation and discoid atelectasis or scarring in the left lower lobe. No acute cardiopulmonary pathology Electronically Signed: Houston Tate MD at 21:10 EDT ,
[2023-01-06] MEDS: Atorvastatin Calcium 20 MG Tablet PO ×2 (11:52→21:26)
[2023-01-06] MEDS: Metoprolol Tartrate 25 MG Tablet PO ×2 (11:52→21:26)
[2023-01-06] MEDS: Acetaminophen 325 MG Tablet 650 MG PO (11:53)
[2023-01-06 12:01] LABS: Bedside Glucose 119 mg/dL (74-106)
--- NOTE | 2023-01-06 12:07 | CASEMGMT ---
According to [facility]'s website, the following tertiary facilities are in network: [facility], [place], [facility], [facility], [facility], [facility] and .
--- NOTE | 2023-01-06 13:00 | CASEMGMT ---
PO GIL Assessment: Face to Face with pt for initial transition planning/care coordination assessment. RN LOUISE introduced self and role at [facility], pt voices understanding and consents to assessment. Pt is A/O x4 and answers all questions appropriately at this time. Pt sitting up in chair in no distress with at bedside. Care providers, pharmacy, and demographics verified/updated. Admitting Dx: NSTEMI PCP:Ruth Saunders [employer] Specialists:Nico GI; Deandre, pulm; Scott, opt; Exten, Ortho OR Preferred Pharmacy: [facility] Insurance: [employer] Prescription Benefit: yes LNOK: Refugio Henderson, Living Arrangements: Pt lives with in a single story home with 2 steps to enter. Pt reports she is I in ADL's. Pt recently broke her foot and is in a surgical shoe. Pt denies concerns at home. Transportation: Pt drives self and denies concerns with transportation. DME/HHC/SNF: Pt has a pox, BP cuff, w/c, FWW, grab bars in the bathroom, BGM with sufficient supplies. Pt does not use AD. Pt denies hx of HHC or SNF stays. Pt states no concerns with going home at time of dc. Pt states no further concerns/needs. CM to follow. Advised pt to ask CM if any further question/concerns/needs arise, voices understanding. Pt Goal: Home Plan: Home
[2023-01-06] MEDS: Insulin Lispro 100 UNIT/ML INSULN.PEN SC (18:47)
[2023-01-06] MEDS: traMADol 50 MG Tablet PO (18:48)
[2023-01-06 19:19] LABS: Bedside Glucose 186 mg/dL (74-106)
[2023-01-06] MEDS: Pramipexole Di-HCl 0.5 MG Tablet PO (21:32)
[2023-01-07] VITALS (8 sets, daily range): BP systolic 119–129; BP diastolic 67–80; PULSE 60–77; RESP 12–18; TEMP 36.6–36.9; O2SAT 92–95
[2023-01-07] MEDS: traMADol 50 MG Tablet PO (02:38)
[2023-01-07 06:01] LABS: Absolute Lymphocyte Count 2.85 X10^3/uL (0.83-4.51); Absolute Neutrophil Count 5.3 X10^3/uL (2.0-7.7); Basophil# 0.06 X10^3/uL; Basophil% 0.6 % (0-1); Eosinophil# 0.33 X10^3/uL; Eosinophils% 3.5 % (0-5); Hematocrit 44.7 % (37-47); Lymphocyte # 2.85 X10^3/ul (0.83-4.51); Lymphocyte % 30.1 % (19-41); Mean Corp Hgb Conc 31.3 g/dL (32-36); Mean Corpuscular Hgb 26.3 pg (27.0-32.0); Mean Corpuscular Volume 83.9 fL (81-99); Mean Platelet Vol. 9.3 fl (6.2-12.0); Monocyte# 0.86 X10^3/uL; Monocyte% 9.1 % (0-10); NRBC Flagged by Analyzer 0 % (0-5); Neutrophil # 5.34 X10^3/uL (2.7-7.7); Neutrophil % 56.3 % (47-70); Platelet Count 328 K/mm3 (150-450); RBC Distribution Width SD 48.8 fl (35.1-43.9); Red Blood Count 5.33 M/mm3 (4.2-5.4); White Blood Count 9.5 K/mm3 (4.4-11.0)
[2023-01-07] MEDS: Levothyroxine 125 MCG Tablet PO (06:01)
[2023-01-07 06:28] LABS: Bedside Glucose 147 mg/dL (74-106)
[2023-01-07 06:57] LABS: Anion Gap 5 (5-15); BUN 21 mg/dL (7-18); Calcium,Total 9.5 mg/dL (8.5-10.1); Chloride 97 mmol/L (98-107); Creatinine, Serum 0.81 mg/dL (0.55-1.02); EST Glomerular Filtration Rate 76 mL/min (>60); Est Glom Filt Rate - Afr Amer 92 mL/min (>60); Estimated Creatinine Clearance 67.34 ml/min; Glucose 143 mg/dL (74-106); Potassium 3.7 mmol/L (3.5-5.1); Sodium Level 136 mmol/L (136-145); Thyroid Stim Hormone (TSH) 2.71 uIU/mL (0.358-3.74)
[2023-01-07] MEDS: DULoxetine Hcl 30 MG Capsule PO ×2 (08:45→21:11)
[2023-01-07] MEDS: hydroCHLOROthiazide 25 MG Tablet PO (08:46)
[2023-01-07] MEDS: Aspirin 81 MG TAB.CHEW PO (08:46)
[2023-01-07] MEDS: Metoprolol Tartrate 25 MG Tablet PO ×2 (08:47→21:12)
--- NOTE | 2023-01-07 08:55 | PN.HOSP_ITS ---
Reason for Visit Reason for Visit: Diagnoses Hyperlipidemia, unspecified (01/05/23) Non-ST elevation (NSTEMI) myocardial infarction (01/05/23) Chest pain, unspecified (01/05/23) Personal history of other endocrine, nutritional and metabolic disease (01/05/23) Subjective Subjective Reports feeling tired at the moment as she received Ambien and takes tramadol but while laying there has no other acute complaints. Did get up and clean herself up and felt a little chest discomfort when she laid back down and went away. No other acute complaints aside from patient has been constipated no bowel movement in 3 days and asked for something to help her bowels move Objective Data Objective Data Vital Signs: Vital Signs Temp Pulse Resp BP Pulse Ox O2 Del Method O2 Flow Rate 97.8 F 77 16 119/67 92 Room Air 3 01/07/23 08:43 01/07/23 08:47 01/07/23 08:43 01/07/23 08:47 01/07/23 08:43 01/07/23 08:43 01/06/23 09:32 Oxygen Flow Rate (L/min) 3 Oxygen Delivery Method Room Air Weight: 102 kg Body Mass Index (BMI) 35.2 Intake & Output: Intake and Output for Last 24 Hours 01/05/23 01/06/23 01/07/23 23:59 23:59 23:59 Intake Total 110 / 110 360 / 460 200 / 200 Balance 110 / 110 360 / 460 200 / 200 Lab / Micro Data 01/07/23 05:24 01/07/23 05:24 Labs: Laboratory Results - last 24 hr 01/06/23 11:32: POC Glucose 119 H 01/06/23 18:41: POC Glucose 186 H 01/07/23 05:24: WBC 9.5, RBC 5.33, Hgb 14.0, Hct 44.7, MCV 83.9, MCH 26.3 L, MCHC 31.3 L, RDW Std Deviation 48.8 H, RDW Coeff of Jonel 16.0 H, Plt Count 328, MPV 9.3, Immature Gran % (Auto) 0.400, Neut % (Auto) 56.3, Lymph % (Auto) 30.1, [place] % (Auto) 9.1, Eos % (Auto) 3.5, Baso % (Auto) 0.6, Absolute Neuts (auto) 5.3, Absolute Lymphs (auto) 2.85, Nucleated RBC % 0, Sodium 136, Potassium 3.7, Chloride 97 L, Carbon Dioxide 34.0 H, Anion Gap 5, BUN 21 H, Creatinine 0.81, Estim Creat Clear Calc 67.34, Est GFR (MDRD) Af Amer 92, Est GFR (MDRD) Non-Af 76, BUN/Creatinine Ratio 26.0 H, Glucose 143 H, Calcium 9.5, TSH 2.71 01/07/23 05:57: POC Glucose 147 H Radiography Diagnostic Testing: Radiology Impression Echocardiogram 01/05/23 23:52 Interpretation Summary Mild concentric left ventricular hypertrophy. The left ventricular ejection fraction is 40-45 %. Posterior and inferior hypokinesis. The study was technically difficult. Ordering Physician: Jakub Dennis Referring Physician: Jakub Dennis Performed By: Sariah Martínez RCS Rhythm Strip Rhythm Strip: Sinus Rhythm Rate: 93 Ectopy: None Physical Exam Narrative General: Alert, oriented, no apparent distress HEENT: Atraumatic, normocephalic Eyes: Anicteric, normal conjunctiva, extraocular movements grossly intact Neck: Supple Respiratory: Clear to auscultation bilaterally, normal respiratory effort Cardiovascular: Regular rate and rhythm GI: Soft, nontender, nondistended Extremities: No edema Musculoskeletal: Moving all extremities Neuro: No overt focal neurological deficits Skin: No rashes appreciated Psych: Cooperative Assessment & Plan Assessment/Plan (1) NSTEMI, initial episode of care: PLAN: Plan #Non-STEMI -Type 1 vs type 2 -Trop in ED 148 and updtrended to 814 -EKG in ED w/ anterolateral ST depressions and T wave flattening -Full dose lovenox -full dose asa -Daily asa -Nitro paste -We will check lipid panel. -Stat EKG as needed for chest pain -Keep n.p.o. after midnight -Cardiology consult. -01/06: LDL 107 with triglycerides of 214 and total cholesterol 203. Patient evaluated by cardiology, patient heart cath on Sunday. Patient got dizzy with Nitropaste on, no chest pain, will make this as needed -01/07: N.p.o. at midnight, for heart cath tomorrow, has not required the Nitropaste and chest pain that she developed when she was up and exerting herself resolved when she laid back down. Continue full dose Lovenox given concern for NSTEMI type I and patient having symptoms consistent with unstable angina. Scheduled dosing in computer for twice daily #Leukocytosis -Suspect reactive -Downtrending -01/07: Resolved #Diabetes mellitus type II -Blood glucose is stable -Hold home hypoglycemic regimen -Cardiac diabetic diet. N.p.o. after midnight. -Monitor Accu-Cheks -Correction scale insulin ordered. -01/06: Last A1c 6.7 in 2020, will order A1c -01/07: Appears fairly well controlled, presently on low-dose sliding scale #Hypertension -Blood pressure is not within goal -Home blood pressure medication continued. -Trend blood pressure and adjust blood pressure medications. -01/06: Continue HCTZ, losartan. Patient has heart cath on Sunday, given her BP on the low side with heart cath pending we will hold losartan for -01/07: Has been very well controlled, will hold HCTZ due to its diuretic properties and heart cath tomorrow as well as good control of BP. Continue metoprolol #Hypothyroidism -Continue Synthroid -We will check TSH -01/07: TSH within normal limits DVT prophylaxis ordered: Received therapeutic dose of Lovenox emergency department, will continue therapeutic dose Lovenox due to concern for NSTEMI type I patient with symptoms at the moment consistent with unstable angina Time spent in the patient's overall evaluation,decision-making process, review of diagnostic data, adjustment of management, discussion with other providers, nursing nursing and ancillary staff involved in patient's care documentation, 36 minutes. Charges/Coding Visit Charges Inpatient E&M: 04936 Subs Hosp L2
[2023-01-07 09:10] LABS: Hemoglobin A1c 6.9 % (3.8-5.6)
[2023-01-07] MEDS: Insulin Lispro 100 UNIT/ML INSULN.PEN SC ×3 (11:57→21:30)
[2023-01-07] MEDS: Enoxaparin 100 MG/ML Syringe SC ×2 (12:01→21:10)
[2023-01-07] MEDS: Polyethylene Glycol 3350 17 GM PACKET PO ×2 (12:01→21:10)
[2023-01-07 12:30] LABS: Bedside Glucose 153 mg/dL (74-106)
--- NOTE | 2023-01-07 13:00 | PN.CARD_ITS ---
Subjective Subjective No further episodes of chest pain. Objective Data Vital Signs: Vital Signs Temp Pulse Resp BP Pulse Ox O2 Del Method O2 Flow Rate 97.8 F 77 16 119/67 95 Room Air 3 01/07/23 08:43 01/07/23 08:47 01/07/23 08:43 01/07/23 08:47 01/07/23 09:00 01/07/23 09:00 01/06/23 09:32 Oxygen Flow Rate (L/min) 3 Oxygen Delivery Method Room Air Weight: 224 lb 13.944 oz Body Mass Index (BMI) 35.2 Intake & Output: Intake and Output for Last 24 Hours 01/05/23 01/06/23 01/07/23 23:59 23:59 23:59 Intake Total 110 / 110 360 / 460 440 / 440 Balance 110 / 110 360 / 460 440 / 440 Lab / Micro Data 01/07/23 05:24 01/07/23 05:24 Labs: Laboratory Results - last 24 hr 01/06/23 18:41: POC Glucose 186 H 01/07/23 05:24: WBC 9.5, RBC 5.33, Hgb 14.0, Hct 44.7, MCV 83.9, MCH 26.3 L, M CHC 31.3 L, RDW Std Deviation 48.8 H, RDW Coeff of Jonel 16.0 H, Plt Count 328, MPV 9.3, Immature Gran % (Auto) 0.400, Neut % (Auto) 56.3, Lymph % (Auto) 30.1, [place] % (Auto) 9.1, Eos % (Auto) 3.5, Baso % (Auto) 0.6, Absolute Neuts (auto) 5.3, Absolute Lymphs (auto) 2.85, Nucleated RBC % 0, Sodium 136, Potassium 3.7, Chloride 97 L, Carbon Dioxide 34.0 H, Anion Gap 5, BUN 21 H, Creatinine 0.81, Estim Creat Clear Calc 67.34, Est GFR (MDRD) Af Amer 92, Est GFR (MDRD) Non-Af 7 6, BUN/Creatinine Ratio 26.0 H, Glucose 143 H, Hemoglobin A1c 6.9 H, Calcium 9.5, TSH 2.71 01/07/23 05:57: POC Glucose 147 H 01/07/23 11:53: POC Glucose 153 H Rhythm Strip Rhythm Strip: Sinus Rhythm Rate: 93 Ectopy: None Cardiology Labs/Tests 01/07/23 05:24: WBC 9.5, RBC 5.33, Hgb 14.0, Hct 44.7, MCV 83.9, MCH 26.3 L, MCHC 31.3 L, Plt Count 328, MPV 9.3, Immature Gran % (Auto) 0.400, Neut % (Auto) 56.3, Lymph % (Auto) 30.1, [place] % (Auto) 9.1, Eos % (Auto) 3.5, Baso % (Auto) 0.6, Absolute Neuts (auto) 5.3, Nucleated RBC % 0, Sodium 136, Potassium 3.7, Chloride 97 L, Carbon Dioxide 34.0 H, Anion Gap 5, BUN 21 H, Creatinine 0.81, Est GFR (MDRD) Af Amer 92, Est GFR (MDRD) Non-Af 76, BUN/Creatinine Ratio 26.0 H , Glucose 143 H, Hemoglobin A1c 6.9 H, Calcium 9.5 Rhythm: EKG: ECHO: Stress Test: Cardiac Cath: PCI: CT Surgery: Holter monitor: EPS: PPM: CXR: Chest CT Scan: Radiography Diagnostic Testing: Radiology Impression Echocardiogram 01/05/23 23:52 Interpretation Summary Mild concentric left ventricular hypertrophy. The left ventricular ejection fraction is 40-45 %. Posterior and inferior hypokinesis. The study was technically difficult. Ordering Physician: Jakub Dennis Referring Physician: Jakub Dennis Performed By: Sariah Martínez RCS Physical Exam Narrative Comfortable. No distress. Heart sounds 1 and 2 are normal. No murmurs or rubs are noted. Chest clear to auscultation bilaterally. No crepitations. Abdomen soft. Alert oriented x3. No ankle edema noted. Assessment & Plan Assessment/Plan (1) NSTEMI, initial episode of care: PLAN: Presently pain-free. Continue aspirin. Start low-dose beta-blockers. Nitrates. Check echo. For coronary angiography tomorrow. (2) Chest pain: PLAN: See #1 above. (3) History of diabetes mellitus: PLAN: As per internal medicine. (4) Dyslipidemia: PLAN: Start statins.
[2023-01-07 17:51] LABS: Bedside Glucose 159 mg/dL (74-106)
[2023-01-07] MEDS: Acetaminophen 325 MG Tablet 650 MG PO (20:16)
[2023-01-07] MEDS: Atorvastatin Calcium 20 MG Tablet PO (21:12)
[2023-01-07] MEDS: Pramipexole Di-HCl 0.5 MG Tablet PO (21:26)
[2023-01-07 21:58] LABS: Bedside Glucose 178 mg/dL (74-106)
[2023-01-08] VITALS (17 sets, daily range): BP systolic 90–145; BP diastolic 53–87; PULSE 50–74; RESP 16–18; TEMP 36.1–37.2; O2SAT 92–98
[2023-01-08] MEDS: Acetaminophen 325 MG Tablet 650 MG PO ×2 (03:24→19:51)
[2023-01-08] MEDS: Levothyroxine 125 MCG Tablet PO (05:04)
[2023-01-08 05:50] LABS: Absolute Lymphocyte Count 3.26 X10^3/uL (0.83-4.51); Absolute Neutrophil Count 3.9 X10^3/uL (2.0-7.7); Basophil# 0.05 X10^3/uL; Basophil% 0.6 % (0-1); Eosinophil# 0.32 X10^3/uL; Hematocrit 44.5 % (37-47); Hemoglobin 13.8 g/dL (12.0-15.0); Lymphocyte # 3.26 X10^3/ul (0.83-4.51); Lymphocyte % 40.2 % (19-41); Mean Corpuscular Hgb 25.8 pg (27.0-32.0); Mean Corpuscular Volume 83.2 fL (81-99); Mean Platelet Vol. 9.4 fl (6.2-12.0); Monocyte% 7.4 % (0-10); NRBC Flagged by Analyzer 0 % (0-5); Neutrophil # 3.85 X10^3/uL (2.7-7.7); Neutrophil % 47.6 % (47-70); Platelet Count 304 K/mm3 (150-450); RBC Distribution Width CV 15.6 % (11.6-14.6); RBC Distribution Width SD 47.1 fl (35.1-43.9); Red Blood Count 5.35 M/mm3 (4.2-5.4); White Blood Count 8.1 K/mm3 (4.4-11.0)
[2023-01-08] MEDS: Insulin Lispro 100 UNIT/ML INSULN.PEN SC ×2 (06:09→17:24)
[2023-01-08] MEDS: 0.9% Normal Saline 1,000 ML 15 ML IV (06:09)
[2023-01-08 06:42] LABS: Anion Gap 5 (5-15); BUN 18 mg/dL (7-18); BUN/Creat Ratio 24.6 RATIO (10-20); Calcium,Total 9.6 mg/dL (8.5-10.1); Chloride 98 mmol/L (98-107); Creatinine, Serum 0.73 mg/dL (0.55-1.02); EST Glomerular Filtration Rate 85 mL/min (>60); Est Glom Filt Rate - Afr Amer 102 mL/min (>60); Estimated Creatinine Clearance 74.71 ml/min; Glucose 144 mg/dL (74-106); Potassium 3.7 mmol/L (3.5-5.1); Sodium Level 136 mmol/L (136-145)
[2023-01-08 06:52] LABS: Bedside Glucose 162 mg/dL (74-106)
--- NOTE | 2023-01-08 06:54 | PCM.PN.HOSP ---
Reason for Visit Reason for Visit: Diagnoses Hyperlipidemia, unspecified (01/05/23) Non-ST elevation (NSTEMI) myocardial infarction (01/05/23) Chest pain, unspecified (01/05/23) Personal history of other endocrine, nutritional and metabolic disease (01/05/23) Subjective Subjective Patient with no acute events overnight per self and per nursing report however this morning she feels anxious especially as her cardiac catheterization was delayed secondary to an emergent usage of the catheterization lab. She does note some reflux type symptoms with radiation up towards her throat but this is very mild. Patient eventually transition to cardiac catheterization lab with findings of 99% mid RCA occlusion, 30% proximal, 50% mid LAD, 50% ostial, 50% mid D1 stenoses with successful MAGED mid RCA with recommendation of aspirin indefinitely and Plavix for at least 12-month per cardiology patient denies fevers, chills, nausea, emesis, abdominal pain or dyspnea. Objective Data Objective Data Vital Signs: Vital Signs Temp Pulse Resp BP Pulse Ox O2 Del Method O2 Flow Rate 98.9 F 61 16 130/70 H 94 Room Air 3 01/08/23 06:48 01/08/23 06:48 01/08/23 06:48 01/08/23 06:48 01/08/23 06:48 01/08/23 06:48 01/06/23 09:32 Oxygen Flow Rate (L/min) 3 Oxygen Delivery Method Room Air Weight: 224 lb 13.944 oz Body Mass Index (BMI) 35.2 Intake & Output: Intake and Output for Last 24 Hours 01/06/23 01/07/23 01/08/23 23:59 23:59 23:59 Intake Total 360 / 460 920 / 1040 170 / 170 Balance 360 / 460 920 / 1040 170 / 170 Lab / Micro Data 01/08/23 04:51 01/08/23 04:51 Labs: Laboratory Results - last 24 hr 01/07/23 05:24: Sodium 136, Potassium 3.7, Chloride 97 L, Carbon Dioxide 34.0 H, Anion Gap 5, BUN 21 H, Creatinine 0.81, Estim Creat Clear Calc 67.34, Est GFR (MDRD) Af Amer 92, Est GFR (MDRD) Non-Af 76, BUN/Creatinine Ratio 26.0 H, Glucose 143 H, Hemoglobin A1c 6.9 H, Calcium 9.5, TSH 2.71 01/07/23 11:53: POC Glucose 153 H 01/07/23 17:21: POC Glucose 159 H 01/07/23 21:29: POC Glucose 178 H 01/08/23 04:51: WBC 8.1, RBC 5.35, Hgb 13.8, Hct 44.5, MCV 83.2, MCH 25.8 L, MCHC 31.0 L, RDW Std Deviation 47.1 H, RDW Coeff of Jonel 15.6 H, Plt Count 304, MPV 9.4, Immature Gran % (Auto) 0.200, Neut % (Auto) 47.6, Lymph % (Auto) 40.2, [place] % (Auto) 7.4, Eos % (Auto) 4.0, Baso % (Auto) 0.6, Absolute Neuts (auto) 3.9, Absolute Lymphs (auto) 3.26, Nucleated RBC % 0, Sodium 136, Potassium 3.7, Chloride 98, Carbon Dioxide 33.0 H, Anion Gap 5, BUN 18, Creatinine 0.73, Estim Creat Clear Calc 74.71, Est GFR (MDRD) Af Amer 102, Est GFR (MDRD) Non-Af 85, BUN/Creatinine Ratio 24.6 H, Glucose 144 H, Calcium 9.6 01/08/23 06:07: POC Glucose 162 H Rhythm Strip Rhythm Strip: Sinus Rhythm Rate: 93 Ectopy: None Physical Exam Narrative Physical Examination: General: Awake, alert, oriented x 3 and cooperative, seated upright in PCU bedside chair, no acute distress, does report some mild burning sensation in the midsternal and esophagus region. Skin: Normal color, normal turgor, no icterus, no cyanosis. HEENT: AT/NC, EOMI, PERRLA, MMM. Lungs: Mildly diminished, greater bases, proper effort, no rales, ronchi or wheezing. Heart: Mildly bradycardic with regular rhythm; no gallop, rub audible. Abdomen: Soft, obese, NTTP, ND, normal BS. Extremities: No cyanosis, clubbing, or edema. Neurological: Patient awake, alert, oriented as noted, cognitive function intact; pupils equally reactive to light and accommodation, cranial nerves II-XII grossly normal, moving all 4 extremities, no focal deficits, strength mildly global decreased secondary to acute presentation but improved since initial ED arrival Psychiatric: Affect appears mildly anxious, no evidence of any acute depressive feelings. Assessment & Plan Assessment/Plan (1) NSTEMI, initial episode of care: PLAN: Plan The patient is a 67 y/o F w/ PMHx: Obesity, Chronic pain/Fibromyalgia, HTN, HLD, COPD, GERD w/ barretts esophagus, Chronic anemia, Hypothyroidism, Diabetes mellitus type II who presents to the [facility] ED on01/05/23 with history of 5-day history of persistent chest pain described as heart burning with radiation into her esophagus with associated dyspnea not improving prompting ED evaluation. #1. Chest Pain w/ Acute NSTEMI: EKG in ED w/ sinus rhythm with anterolateral ST depressions and T wave flattening, CXR w/ mild hyperinflation and discoid atelectasis or scarring in the left lower lobe with no acute cardiopulmonary finding otherwise, Trop elevated, initially 148-->753-->814. Admitted to PCU, maintained on a monitored bed, serial enzymes and EKGs monitored per protocol, initiated and maintained on therapeutic Lovenox until cardiac catheterization, continue medical management with aspirin, statin, metoprolol per cardiology discretion, 01/05/23 ECHO w/ mild concentric LVH, LVEF 44 to 45%, posterior and inferior hypokinesis. 01/08/23 Cardiac catheterization lab with findings of 99% mid RCA occlusion, 30% proximal, 50% mid LAD, 50% ostial, 50% mid D1 stenoses with successful MAGED mid RCA with recommendation of aspirin indefinitely and Plavix for at least 12-month per cardiology Discussed with cardiology and if BP will be able to tolerate it would plan addition of lisinopril 2.5 mg once daily with continued close BP monitoring however initially clarifying moexipril other allergy with nursing and pharmacy prior to usage. Per discussion with Dr. Genao if medically appropriate would be able to discharge 01/09/23 on these medications with follow-up with Cardiology in 2-4 weeks. #2. Hypertension: Continue home regimen including metoprolol, PRN hydralazine. Hydrochlorothiazide-losartan currently held with normal range BP. Clarified with Cardiology given ECHO findings and NSTEMI w/ planned addition of lisinopril 2.5 mg once daily with continued close BP monitoring however initially clarifying moexipril other allergy with nursing and pharmacy prior to usage. #3. Hyperlipidemia: Continue home statin regimen. AM FLP obtained per protocol #4. Anxiety and depression: We will continue patient home duloxetine regimen. #5. Diabetes mellitus type II: Hold oral home regimen, ADA diet, accu checks w/ ISS. #6. Hypothyroidism: We will continue patient home levothyroxine regimen. #7. COPD: Not on any chronic regimen, as needed albuterol, encourage head of bed and I-S. #8. GERD with history of Anna's esophagus: Not on any chronic regimen currently, in case contributing to this acute presentation symptomatically placed on Protonix 40 mg daily with recommended outpatient continued follow-up with gastroenterology. #9. Obesity: Weight loss and lifestyle changes encouraged. #10. DVT prophylaxis: Therapeutic Lovenox until cardiac catheterization with hold prior per Cardiology timeline preference. Charges/Coding Visit Charges Inpatient E&M: 58497 [facility] L3
[2023-01-08] MEDS: Metoprolol Tartrate 25 MG Tablet PO ×2 (07:43→22:16)
[2023-01-08] MEDS: Aspirin 81 MG TAB.CHEW PO (07:43)
--- NOTE | 2023-01-08 09:57 | CL.I_ITS ---
Patient Name: GE SANDERS Study Date: 01/08/2023 Performing: Allegra Genao MD Ht: 67 inches 170.18 cm : 1955 Wt: 225.2 lbs 102 kg Age: 67 Gender: female BSA: 2.13 PROCEDURE(S) PERFORMED DC02-(24726)LHC/COR IC12-(77722/[id number])MAGED W/WO PTCA, SINGLE CORONARY ARTERY CLINICAL PROFILE AND CO-MORBIDITIES Heart Failure: None CONCLUSIONS 99% Mid RCA 30% Prox, 50% Mid LAD; 50% ostial, 50% Mid D1 Successful MAGED Mid RCA using Resolute [place] 3.5x34 mm, post-dilated using 3.75 mm balloon RECOMMENDATIONS ASA Indefinitley Plavix for at least 12 months DESCRIPTION OF PROCEDURE The patient arrived to the procedure lab. The risks and benefits of the procedure as well as a full description of our services here and lack of surgical backup were fully explained to the patient and/or their significant other prior to the catheterization. The Timeout was completed, verifying the correct patient and procedure. The patient's procedural site was prepped and draped in the usual fashion. Local anesthetic was given subcutaneously to right radial region with Lidocaine 2%. Using a modified Seldinger technique, arterial access was obtained via the right radial artery, a 6 Fr fistula sheath was inserted.. Left Coronary Artery selective angiography was performed in multiple views using a 5 Fr. 4.0 Commerce catheter. Right Coronary Artery selective angiography was then performed in multiple views using a 5 Fr. 4.0 Commerce catheterThe images were reviewed and options discussed. A decision was then made to proceed with an Intervention, IVUS or other adjunct procedure. JR4 Guide catheter was inserted and engaged into the RCA. RUNTHROUGH Guide wire was advanced to the RCA. 3.5X38 RESOLUTE Drug Eluting stent was inserted. Drug Eluting stent was advanced across the lesion in the right coronary, mid. 3.75X20 NC EMERGE Balloon catheter was inserted post stent. Angiogram performed post balloon dilatation. The arterial sheath was pulled and a TR Band was applied for hemostasis-11 cc air CORONARY ANGIOGRAPHY DOMINANCE: Right Dominant LEFT HEART ASSESSMENT Left Ventricular Ejection Fraction: Not assessed LEFT MAIN: Angiographically normal LEFT ANTERIOR DESCENDING ARTERY: LAD: Tubular 30% Proximal lesion in LAD DIAGONAL 1: Tubular 50% Mid lesion in 1st Diagonal Tubular 50% Ostial lesion in 1st Diagonal CIRCUMFLEX ARTERY: CIRCUMFLEX: Luminal Irregularities 20% Proximal lesion in Circumflex RIGHT CORONARY ARTERY: RCA: Tubular 99% Mid lesion in RCA INTERVENTION INFORMATION LESION SITE: RCA (Mid) Lesion Complexity: High/C, lesion length: 36 mm, culprit lesion: Yes Pre Stenosis: 99 % Pre intervention ABIEL flow: 3 PROCEDURE: Drug Eluting Stent with post dilatation Post Stenosis: 0 % Post intervention ABIEL flow: 3 Lesion Devices: Medtronic Resolute Robel RX MAGED 3.5x38 Cordis 6 Fr JR4 100cm Guide Catheter Terumo .014 300cm Runthrough extra floppy straight Gui Sci NC EMERGE MR 3.75x20 BALLOON COMPLICATIONS No Complications PROCEDURE MEDICATIONS Versed 1 mg IV Fentanyl 50 mcg IV Oxygen: 2 L/min via nasal cannula Heparin given IA 01/08/2023 09:05:30 Heparin 8000 unit(s) IV 01/08/2023 09:13:15 Nitro 200 mcg IC 01/08/2023 09:22:34 Verapamil 2.5mg, Ntg 200mcgs, 2000 units of Heparin given IA 01/08/2023 09:05:30 SUMMARY OF HEMODYNAMIC DATA Time AIR REST ECG 08:53:20 AO 101/60 (76) SA 09:07:50 Signed By Allegra Genao MD On 01/08/2023 09:56:41 Allegra Genao MD
[2023-01-08] MEDS: 0.9% Normal Saline 1,000 ML 100 ML IV (10:00)
--- NOTE | 2023-01-08 10:00 | EKG12_ITS ---
Test Reason : CP Blood Pressure : / mmHG Vent. Rate : 082 BPM Atrial Rate : 082 BPM P-R Int : 208 ms QRS Dur : 088 ms QT Int : 400 ms P-R-T Axes : 081 -29 096 degrees QTc Int : 467 ms Normal sinus rhythm Low voltage QRS Nonspecific ST and T wave abnormality Abnormal ECG When compared with ECG of 05-JAN-2023 17:50, MANUAL COMPARISON REQUIRED, DATA IS UNCONFIRMED Confirmed by TRACY BEJARANO, VIDAL ([id number]), photo editor ASHOK ALONSO ([id number]) on 01/09/2023 7:30:56 AM Referred By: Jakub Dennis Confirmed By:VIDAL MOLINA MD
--- NOTE | 2023-01-08 11:55 | NURSING ---
Patient placed on 2L for comfort saturation 92-93% stating feels a heaviness at times when taking a deep breathe so placed on 2L. vitals wnl
[2023-01-08] MEDS: Furosemide 20 MG/2 ML VIAL IV (12:32)
[2023-01-08] MEDS: 0.9% Saline Lock 10 ML Syringe IV (12:37)
--- NOTE | 2023-01-08 14:11 | CRPHASE1 ---
Patient Communication Patient Information PHII Cardiac Rehab Discussed with Patient:: Yes Guide to Cardiac Rehab Given to Patient:: Yes Cardiac Rehab Facility Choice List Given to Patient:: Yes Communication to Cardiac Rehab Choice Program [facility] CR PHII:: Communication Given to CR Title Specialist:: Allegra Genao Phase II Cardiac Rehab:: Yes Sessions:: 36 sessions - 3 days/wk, 12 weeks Cardiac Rehabilitation Info Program Information Cardiac Rehabilitation Program Information: Cardiac Rehab The cardiac rehab team at [facility] consists of highly skilled exercise physiologists, nurses, respiratory therapists and physicians working together with you. Our purpose is to help you have a full recovery and achieve the goals you set for yourself. Over the years many of our patients have returned to activities they assumed they would never do again! We can help restore your confidence and motivation to make lifestyle changes that can have a significant impact on your health and quality of life! We can help answer questions and concerns you may have about exercise, lifestyle, medications, diet, stress and anxiety which are common following a hospitalization. WE monitor ECG and vital signs during exercise and discuss your progress with you and report to your physician(s). Cardiac Rehab is proven to help reduce readmissions, improve functional capacity and lower recurrence of problems with your heart. Our Cardiac Rehab program is Certified by the [place] [employer]-Vascular and Pulmonary [employer] (AACVPR) and Accredited by the [place] [employer] through our [facility]. You can contact us at . We invite you to call us with your questions or to get started in our program. If you have other questions or concerns be sure to ask your physician/provider during your follow-up visit. WE look forward to seeing you!
--- NOTE | 2023-01-08 14:13 | CRPH1.INSTRU ---
General Education Discussed with Patient CAD and cardiac anatomy and function:: Patient communicates acknowledgment Explanation of diagnoses and procedures:: Patient communicates acknowledgment Sign/Symptoms of TN:: Patient communicates acknowledgment Antiplatelet therapy: Patient communicates acknowledgment Proper use of NTG-SL: Patient communicates acknowledgment Emergency procedures and activation of EMS: Patient communicates acknowledgment Compliance of all prescribed medications: Patient communicates acknowledgment Smoking Risk Factors Patient Nicotine/Smoking Risk Factors Are:: Non-smoker Recommendations Recommendations Include:: Previous smoker; encourage continued cessation Response Code Nicotine/Smoking Response Code:: Patient communicates acknowledgment Dyslipidemia Risk Factors Patient Dyslipidemia Risk Factors Are:: Total Cholesterol, Triglycerides, HDL and LDL Recommendations Recommendations Include:: Lipid profile not available Response Code Dyslipidemia Response Code:: Patient communicates acknowledgment Overweight/Obesity Risk Factors Patient Overweight/Obesity Risk Factors Are:: Obesity - > or = 30 Recommendations Recommendations Include:: Weight loss of 5-10%, Reduced calorie diet and Exercise 5-7 times/week Response Code Overweight/Obesity:: Patient communicates acknowledgment Hypertension Recommendations Recommendations Include:: BP <130/80 if diabetic and Decrease/maintain normal body weight Response Code Hypertension:: Patient communicates acknowledgment Diabetes Risk Factors Patient Diabetes Risk Factors Are:: Elevated blood sugars Recommendations Recommendations Include:: Maintain fasting blood sugars 70-110 md/dL, Maintain HgbA1c of 6% or less, Monitor blood sugar as prescribed, Diabetic dietary guidelines and Decrease/maintain body weight Response Code Diabetes:: Patient communicates acknowledgment Sedentary Risk Factors Patient Sedentary Risk Factors Are:: Lack of regular exercise Recommendations Recommendations Include:: Aerobic exercise 5-7 times/week for 20-30 minutes continuously Response Code Sedentary Response Code:: Patient communicates acknowledgment
--- NOTE | 2023-01-08 15:45 | CASEMGMT ---
Patient has a Healthcare Power of Photography Editor and Healthcare Living Will, however they are not on file at [facility]. Patient will be advised to bring in a copy when able. Eunice MIRELES
[2023-01-08] MEDS: Clopidogrel Bisulfate 300 MG Tablet PO (17:26)
[2023-01-08 17:51] LABS: Bedside Glucose 150 mg/dL (74-106)
[2023-01-08 18:08] LABS: Bedside Glucose 146 mg/dL (74-106)
[2023-01-08] MEDS: Pramipexole Di-HCl 0.5 MG Tablet PO (22:16)
[2023-01-08] MEDS: Atorvastatin Calcium 20 MG Tablet PO (22:16)
[2023-01-08] MEDS: DULoxetine Hcl 30 MG Capsule PO (22:16)
[2023-01-08] MEDS: traMADol 50 MG Tablet PO (22:19)
[2023-01-09 04:59] VITALS: BP 111/64; PULSE 65; RESP 18; TEMP 36.5; O2SAT 93
[2023-01-09 06:07] LABS: Absolute Neutrophil Count 6.7 X10^3/uL (2.0-7.7); Basophil# 0.05 X10^3/uL; Basophil% 0.5 % (0-1); Eosinophil# 0.22 X10^3/uL; Eosinophils% 2.3 % (0-5); Hematocrit 43.3 % (37-47); Hemoglobin 13.7 g/dL (12.0-15.0); Lymphocyte % 20.5 % (19-41); Mean Corp Hgb Conc 31.6 g/dL (32-36); Mean Corpuscular Volume 82.2 fL (81-99); Mean Platelet Vol. 9.3 fl (6.2-12.0); Monocyte# 0.79 X10^3/uL; Monocyte% 8.1 % (0-10); NRBC Flagged by Analyzer 0 % (0-5); Neutrophil # 6.65 X10^3/uL (2.7-7.7); Neutrophil % 68.3 % (47-70); Platelet Count 293 K/mm3 (150-450); RBC Distribution Width CV 15.6 % (11.6-14.6); RBC Distribution Width SD 46.5 fl (35.1-43.9); Red Blood Count 5.27 M/mm3 (4.2-5.4); White Blood Count 9.7 K/mm3 (4.4-11.0)
[2023-01-09] MEDS: Levothyroxine 125 MCG Tablet PO (06:08)
[2023-01-09 06:38] LABS: ALB/GLOB Ratio 0.8 RATIO (0.9-2.4); AST(SGOT) 27 U/L (15-37); Alanine Aminotransfer ALT/SGPT 26 U/L (13-56); Albumin, Serum 3.4 g/dL (3.2-5.0); Alkaline Phosphatase 102 U/L (45-117); Anion Gap 6 (5-15); BUN 18 mg/dL (7-18); BUN/Creat Ratio 24.2 RATIO (10-20); Calcium,Total 9.5 mg/dL (8.5-10.1); Chloride 99 mmol/L (98-107); Creatinine, Serum 0.74 mg/dL (0.55-1.02); EST Glomerular Filtration Rate 83 mL/min (>60); Est Glom Filt Rate - Afr Amer 101 mL/min (>60); Globulin 4.2 g/dL (2.2-4.2); Glucose 154 mg/dL (74-106); Potassium 3.2 mmol/L (3.5-5.1); Protein, Total 7.6 g/dL (6.4-8.2); Sodium Level 135 mmol/L (136-145)
[2023-01-09 07:32] VITALS: O2SAT 96
[2023-01-09 08:38] VITALS: PULSE 71
[2023-01-09] MEDS: Metoprolol Tartrate 25 MG Tablet PO (08:38)
[2023-01-09] MEDS: Pantoprazole Sodium 40 MG Tablet PO (08:38)
[2023-01-09] MEDS: Potassium Chloride Oral Tablet 20 MEQ 40 MEQ PO (08:38)
[2023-01-09] MEDS: DULoxetine Hcl 30 MG Capsule PO (08:39)
[2023-01-09] MEDS: Clopidogrel Bisulfate 75 MG Tablet PO (08:39)
[2023-01-09] MEDS: Lisinopril 2.5 MG Tablet PO (08:39)
[2023-01-09] MEDS: Aspirin 81 MG TAB.CHEW PO (08:39)
[2023-01-09 09:00] VITALS: BP 126/61; PULSE 71; RESP 14; TEMP 36.6; O2SAT 94
--- NOTE | 2023-01-09 09:45 | EKG12_ITS ---
Test Reason : MORNING EKG Blood Pressure : / mmHG Vent. Rate : 063 BPM Atrial Rate : 063 BPM P-R Int : 188 ms QRS Dur : 090 ms QT Int : 438 ms P-R-T Axes : 066 -45 -66 degrees QTc Int : 448 ms Normal sinus rhythm Left axis deviation ST & T wave abnormality, consider inferior ischemia ST & T wave abnormality, consider anterolateral ischemia Abnormal ECG When compared with ECG of 08-JAN-2023 10:51, MANUAL COMPARISON REQUIRED, DATA IS UNCONFIRMED Confirmed by TRACY BEJARANO, VIDAL ([id number]), publishing editor ASHOK ALONSO ([id number]) on 01/10/2023 9:33:52 AM Referred By: Jakub Dennis Confirmed By:VIDAL MOLINA MD
[2023-01-09] MEDS: Insulin Lispro 100 UNIT/ML INSULN.PEN SC (11:24)
--- NOTE | 2023-01-09 11:30 | CASEMGMT ---
PO GIL Follow-up: This RN CM met with pt face to face. Pt in chair and S.O. at bedside. Pt denies any discharge needs at this time and states she will have assistance at home from her S.O. Plan: DC home with support of family. Vinny Avila RN CM
[2023-01-09 11:43] LABS: Bedside Glucose 182 mg/dL (74-106)
[2023-01-09 11:46] VITALS: PULSE 70; RESP 16; TEMP 36.7; O2SAT 96
--- NOTE | 2023-01-09 11:48 | DS.PCM_ITS ---
Providers Date of Admission: 01/05/23 Date of Discharge: 01/09/23 Primary Care Physician: LAUREEN Prado Consultations 01/05/23 23:52 Consult: Cardiology Routine Consulting Provider: Allegra Genao Reason for Consult: Chest Pain EMERGENT Consult: Yes MD Notified: Yes Date Notified: 01/06/23 Time Notified: 06:26 Method of Notification: Text Reason For Visit: NSTEMI Diagnosis Discharge Diagnosis (1) NSTEMI, initial episode of care: Status: Acute Code(s): I21.4 - Non-ST elevation (NSTEMI) myocardial infarction Medications at Discharge Home Medications duloxetine 30 mg capsule,delayed release 30 mg PO BID depression 08/11/16 glipizide 10 mg tablet, extended release 24 hr (Glucotrol XL) 10 mg PO BID 08/11/16 hydrochlorothiazide 25 mg tablet 25 mg PO DAILY 08/11/16 levothyroxine 125 mcg tablet 125 mcg PO DAILY 08/11/16 pramipexole 0.5 mg tablet (Mirapex) 0.5 mg PO QHS 08/11/16 sitagliptin phosphate 50 mg-metformin 1,000 mg tablet (Janumet) 1 tab PO BIDCM 08/11/16 metformin 1,000 mg tablet 1,000 mg PO BID 01/05/23 aspirin 81 mg chewable tablet 81 mg PO DAILY@0800 #30 tabs 01/09/23 atorvastatin 40 mg tablet 40 mg PO DAILY #30 tabs 01/09/23 clopidogrel 75 mg tablet 75 mg PO DAILY #30 tabs 01/09/23 lisinopril 2.5 mg tablet 2.5 mg PO DAILY #30 tabs 01/09/23 metoprolol tartrate 25 mg tablet 25 mg PO BID #60 tabs 01/09/23 Hospital Course Procedures 2-D Echocardiogram and Cardiac catheterization Summary of Care Provided Minutes Spent on Discharge: 48 Hospital Course: Patient is a 67-year-old female with a past medical history as outlined which includes breast esophagus and diabetes mellitus. She presented to the ED on 01/05/2023 with a 5-day history of persistent chest pain which she initially thought was due to heartburn. The chest pain was retrosternal. She says she had been taking Pepto-Bismol and Tums but it did not give her much relief. She had been seen about 5 days prior at [facility] for similar symptoms but was subsequently discharged home. On admission, initial troponin was 148. EKG showed ST depression in the anterolateral leads and chest x-ray showed no acute cardiopulmonary pathology. She was admitted and managed for non-STEMI. Cardiology was consulted and she was started on p.o. aspirin 81 mg daily. She was also placed on high intensity statin. She had cardiac cath on 01/08/2023 which showed a 99% occlusion in the mid RCA. She had successful MAGED with stenting of the mid RCA. She was placed on aspirin and Plavix as well as high i ntensity statin. She had 2D echo which showed mild concentric left ventricular hypertrophy with EF of 40 to 45% and posterior and inferior hypokinesis. She remained stable and was discharged home on 01/09/2023. She was discharged on p.o. aspirin as well as statin and Plavix. She was placed on metoprolol and lisinopril. Her losartan and hydrochlorothiazide were therefore discontinued. She is to follow-up with her primary care doctor and cardiology within 1 to 2 weeks. Patient seen and examined prior to discharge. She had no complaints and had an uneventful night. Review of systems otherwise negative. Labs and vitals reviewed. Home medications reviewed out. Physical Exam Const alert, oriented x3 and no apparent distress General Appearance: cooperative, comfortable and well kempt HEENT normocephalic, head/scalp atraumatic, hearing grossly normal bilaterally and moist oral mucous membranes Mouth: oral and palatal mucosa normal Eyes PERRL, EOMs intact bilaterally and conjunctivae normal Neck no lymphadenopathy and supple Resp normal respiratory effort, no retractions, no use of accessory muscles and clear to auscultation bilaterally Cardio regular rate, regular rhythm, S1 normal heart sound, S2 normal heart sound and no murmurs GI normal to inspection, nondistended, normoactive bowel sounds, soft to palpation, non-tender and non-distended Extremity normal to inspection, full ROM and no clubbing, cyanosis or edema Skin no rashes or lesions noted, no wounds and skin turgor normal Neuro oriented x3, CN's II-XII intact bilaterally, moves all extremities, no focal motor deficits and no sensory deficits noted Sensorium / Orientation: awake and alert Motor Exam: strength 5/5 throughout Psych affect normal Weight / BMI Weight Weight: 224 lb 13.944 oz Body Mass Index (BMI) 35.2 ABG / Lab / Microbiology Data 01/09/23 04:54 01/09/23 04:54 Laboratory: Laboratory Results - last 24 hr 01/08/23 10:04: POC Glucose 146 H 01/08/23 17:19: POC Glucose 150 H 01/09/23 04:54: WBC 9.7, RBC 5.27, Hgb 13.7, Hct 43.3, MCV 82.2, MCH 26.0 L, MCHC 31.6 L, RDW Std Deviation 46.5 H, RDW Coeff of Jonel 15.6 H, Plt Count 293, MPV 9.3, Immature Gran % (Auto) 0.300, Neut % (Auto) 68.3, Lymph % (Auto) 20.5, [place] % (Auto) 8.1, Eos % (Auto) 2.3, Baso % (Auto) 0.5, Absolute Neuts (auto) 6.7, Absolute Lymphs (auto) 2.00, Nucleated RBC % 0, Sodium 135 L, Potassium 3.2 L, Chloride 99, Carbon Dioxide 30.0, Anion Gap 6, BUN 18, Creatinine 0.74, Estim Creat Clear Calc 73.70, Est GFR (MDRD) Af Amer 101, Est GFR (MDRD) Non-Af 83, BUN/Creatinine Ratio 24.2 H, Glucose 154 H, Calcium 9.5, Total Bilirubin 1.10 H, AST 27, ALT 26, Alkaline Phosphatase 102, Total Protein 7.6, Albumin 3.4, Globulin 4.2, Albumin/Globulin Ratio 0.8 L 01/09/23 11:22: POC Glucose 182 H D/C Instructions Discharge Diet: Low fat / Low cholesterol and 1800 Calorie Control Diet Discharge Activity: Return to Normal Activity Call your doctor if you observe: Fever of 101 or Higher, Shortness of breath, Dizziness, Swelling in the ankles and Chest pain Meaningful Use Info Meaningful Use Diagnoses (Choose all that apply): AMI AMI/Post PCI/Angioplasty Aspirin given w/in 24hrs of arrival?: Yes ASA at discharge?: Yes Antiplatelet Therapy at Discharge:: Yes Statins at discharge?: Yes Henry/ARB at discharge?: Yes Beta Maylin at discharge?: Yes Done w/ Acute AK measure.: Yes Documented LVEF (%): 45 Discharge Plan Admission Admit Date/Time: 01/05/23 22:40 Primary Reason for Your Visit: nonstemi Attending Provider: Na Lara Primary Care Provider: Ruth Saunders NP Consulting Providers: Jakub Dennis; Allegra Genao; Marium Xiao; Otilia Parr Instructions Patient Instructions: Heart Attack Dc, Exercising After a Heart Attack, Heart Attack Meds Discharge Orders/Prescriptions Prescriptions: New clopidogrel 75 mg Tablet 75 mg PO DAILY Qty: 30 2RF aspirin 81 mg Tablet,Chewable 81 mg PO DAILY@0800 Qty: 30 1RF lisinopril 2.5 mg Tablet 2.5 mg PO DAILY Qty: 30 2RF metoprolol tartrate 25 mg Tablet 25 mg PO BID Qty: 60 2RF atorvastatin 40 mg tablet 40 mg PO DAILY Qty: 30 2RF Continued glipizide [Glucotrol XL] 10 MG tablet extended release 24hr 10 mg PO BID pramipexole [Mirapex] 0.5 MG tablet 0.5 mg PO QHS levothyroxine 125 MCG tablet 125 mcg PO DAILY hydrochlorothiazide 25 MG tablet 25 mg PO DAILY duloxetine 30 MG capsule,delayed release(DR/EC) 30 mg PO BID Janumet 1 TABLET tablet 1 tab PO BIDCM metformin 1,000 mg tablet 1,000 mg PO BID Discontinued losartan-hydrochlorothiazide 1 EACH tablet 1 ea PO DAILY Referrals / Follow Up: Allegra Genao MD [Med Staff - Active Staff] - Within 2 Weeks Ruth Saunders NP, [facility] [facility] [Primary Care Provider] - Within 2 Weeks Disposition Disposition (needs filled in before D/C Order can be placed): Home, Self Care Charges/Coding Visit Charges Inpatient E&M: 57663 Disch Hosp >30min
--- NOTE | 2023-01-09 14:54 | PHA.DC.MR.R ---
Pharmacy [facility] Reconciliation [facility] has performed discharge medication reconciliation for this patient. Patient education materials prepared, patient discharged when counseling was attempted. The patient's discharge medication list was reviewed for discrepancies and discrepancies were resolved. Medications at Discharge Home Medications duloxetine 30 mg capsule,delayed release 30 mg PO BID depression 08/11/16 glipizide 10 mg tablet, extended release 24 hr (Glucotrol XL) 10 mg PO BID 08/11/16 hydrochlorothiazide 25 mg tablet 25 mg PO DAILY 08/11/16 levothyroxine 125 mcg tablet 125 mcg PO DAILY 08/11/16 pramipexole 0.5 mg tablet (Mirapex) 0.5 mg PO QHS 08/11/16 sitagliptin phosphate 50 mg-metformin 1,000 mg tablet (Janumet) 1 tab PO BIDCM 08/11/16 metformin 1,000 mg tablet 1,000 mg PO BID 01/05/23 aspirin 81 mg chewable tablet 81 mg PO DAILY@0800 #30 tabs 01/09/23 atorvastatin 40 mg tablet 40 mg PO DAILY #30 tabs 01/09/23 clopidogrel 75 mg tablet 75 mg PO DAILY #30 tabs 01/09/23 lisinopril 2.5 mg tablet 2.5 mg PO DAILY #30 tabs 01/09/23 metoprolol tartrate 25 mg tablet 25 mg PO BID #60 tabs 01/09/23
== END 2023-01-09 12:33 | disposition home or self-care (01) | DRG 247 ==
LOC: ED 22:35 → PCU 01-06 02:29
PROVIDERS: Family Medicine; Internal Medicine; Admitting Provider Hospitalist; Emergency Provider Emergency Medicine; PCP Nurse Practitioner Adult Health; Referring Provider Hospitalist; Visit Provider Student in an Organized Health Care Education/Training Program
DX: I21.4 Non-ST elevation (NSTEMI) myocardial infarction (principal); E03.9 Hypothyroidism, unspecified; E11.9 Type 2 diabetes mellitus without complications; J44.9 Chronic obstructive pulmonary disease, unspecified; I25.110 Atherosclerotic heart disease of native coronary artery with unstable angina pectoris; M79.7 Fibromyalgia; I10 Essential (primary) hypertension; E78.5 Hyperlipidemia, unspecified; K21.9 Gastro-esophageal reflux disease without esophagitis; F32.A Depression, unspecified; F41.9 Anxiety disorder, unspecified; Z79.84 Long term (current) use of oral hypoglycemic drugs; Z79.890 Hormone replacement therapy; Z79.899 Other long term (current) drug therapy; Z95.5 Presence of coronary angioplasty implant and graft; Z87.891 Personal history of nicotine dependence; E66.9 Obesity, unspecified; Z68.36 Body mass index [BMI] 36.0-36.9, adult
CPT/HCPCS: 36415; 71045; 80048; 80053; 80061; 82962; 83036; 84443; 84484; 85025; 92928; 93005; 93306; 93454; 99152; 99153; 99285; J7030; Q9957; Q9967; A4216; C1725; C1769; C1874; C1887; C1894; C8929; C9600; J1940

== ENCOUNTER → 2023-01-18 | Outpatient (CLI) | payer MEDICARE, SELFPAY | END | disposition home or self-care (01) | LOC: CR 07:45 | PROVIDERS: PCP Nurse Practitioner Adult Health; Referring Provider Internal Medicine Cardiovascular Disease; Visit Provider Internal Medicine Cardiovascular Disease | DX: Z00.00 Encounter for general adult medical examination without abnormal findings (principal) ==

== ENCOUNTER → 2023-02-07 | Outpatient (CLI) | payer MEDICARE, SELFPAY ==
--- NOTE | 2023-02-07 08:04 | CR.HP_ITS ---
CR - History & Physical General Arrival date:: 02/07/23 Arrival time:: 08:05 Date of Referral:: 01/08/23 Date of CR Evaluation:: 02/07/23 Referring Physician: Dr. Allegra Genao Primary Diagnosis: Non-Stemi, PCI w/coronary stent History of Present Cardiac Event Onset Date Acute Myocardial Infarction within 12 months:: Yes Vessel: mid RCA PTCA or coronary stenting:: Yes Medications Ambulatory Orders Medication Instructions Recorded duloxetine 30 mg capsule,delayed 30 mg PO BID depression 08/11/16 release glipizide 10 mg tablet, extended 10 mg PO BID 08/11/16 release 24 hr (Glucotrol XL) hydrochlorothiazide 25 mg tablet 25 mg PO DAILY 08/11/16 levothyroxine 125 mcg tablet 125 mcg PO DAILY 08/11/16 pramipexole 0.5 mg tablet (Mirapex) 0.5 mg PO QHS 08/11/16 sitagliptin phosphate 50 1 tab PO BIDCM 08/11/16 mg-metformin 1,000 mg tablet (Janumet) metformin 1,000 mg tablet 1,000 mg PO BID 01/05/23 aspirin 81 mg chewable tablet 81 mg PO DAILY@0800 #30 tabs 01/09/23 atorvastatin 40 mg tablet 40 mg PO DAILY #30 tabs 01/09/23 clopidogrel 75 mg tablet 75 mg PO DAILY #30 tabs 01/09/23 lisinopril 2.5 mg tablet 2.5 mg PO DAILY #30 tabs 01/09/23 metoprolol tartrate 25 mg tablet 25 mg PO BID #60 tabs 01/09/23 Allergies Allergies clarithromycin [From Biaxin] Adverse Reaction (Verified 01/05/23 17:43) Other moexipril [From Univasc] Adverse Reaction (Verified 01/05/23 17:43) Other sulfamethoxazole [From Bactrim] Adverse Reaction (Verified 01/05/23 17:43) Other trimethoprim [From Bactrim] Adverse Reaction (Verified 01/05/23 17:43) Other Sleep Disorder Evaluation Hx of Sleep Apnea: No Do you snore loudly (louder than talking or can be heard through closed doors)?: No Do you often feel tired/ fatigued/ sleepy during daytime?: No Has anyone observed you stop breathing during sleep?: No History of Hypertension (for STOP score): Yes STOP Results: Negative Advanced Directives Advanced Directives Power of Platform Power Technician: Yes Living Will: Yes Advance Directives Information Provided: Yes Advance Directives on File: No DNR Order?:: No Past Medical History Covid-19 Screening Physicial Symptoms Other Clinical Concerns Exposure Risk Pertinent Comorbidities Has a serious heart condition:: Yes Diabetic:: Yes Past Medical Illness Past Medical History (Updated 01/17/23 @ 00:01 by Joaquin Brown) Anemia D64.9 resolved Atherosclerosis of coronary artery of [place] heart without angina pectoris I25.10 Barretts esophagus K22.70 Chronic pain G89.29 back and hip COPD (chronic obstructive pulmonary disease) J44.9 Diabetes E11.9 Dyslipidemia E78.5 Fibromyalgia M79.7 Former smoker Z87.891 History of diabetes mellitus Z86.39 Hypertension I10 Hyperthyroidism E05.90 NSTEMI, initial episode of care I21.4 Past Surgical History Past Surgical History (Updated 01/09/23 @ 16:47 by Sydney Andrade) Hx of right coronary artery stent placement (~01/08/23) Z95.5 MAGED Mid RCA using Resolute Robel 3.5x34 mm, post-dilated using 3.75 mm balloon Family History Summary Family History (Updated 01/06/23 @ 00:37 by Nely Zamarripa) Father S/P CABG x 3 Social History Smoking History Smoking Status: Former smoker Years Smokin Packs Smoked per Day: 1 (stopped 15 years ago) Alcohol Use Alcohol Usage: No Occupation Occupation (List type of work in comments):: Retired Hobbies, Recreation, Social Activities Hobbies: Other (crafts) Recreational Activities: I am able to engage in all my recreational activities Social Environment Status Marital Status: Current Living Arrangements Living Environment:: Spouse Children How many children do you have?: 2 Do any of your children live nearby?: No Safety Do you feel safe in your surroundings?: Yes Assistance Do you need any assistance at home?: no Review of Systems Review of Systems Hints Review of Present Symptoms: Reports Shortness of Breath with Exertion, Angina, Fatigue and Appetite - Special Diet; Denies Shortness of Breath at Rest, PVD, O perative Discomfort, Wound Healing, Dizziness/Lightheadedness, Heart Arrhythmia/Irregularities, Appetite - Normal, Sleep - Normal or Sexual Changes Pain Is Patient Pain Free?: No Pain Location: other (L knee and L foot) Pain Level: 8/10 Risk Factor Assessment Chief Complaint Chief Complaint: PCI with coronary stent, Non-Stemi Vital Signs Pulse Ox: 95 Blood Pressure: 119/67 Pulse Pulse Rate: 77 Hypertension How long have you been treated?: 15 years Diabetes Diabetic History: Type II Nutrition Referral for Diabetes: Yes Obesity Height: 5 ft 7 in Weight:: 224 lb Weight in Pounds: 224.0 lbs Body Mass Index (BMI): 35.0 Nutritional Referral for Obesity: Yes Physical Inactivity Physical Inactivity: Reg Exercise 30 min/day (yoga) Risk Stratification Risk Guidelines: Moderate Risk: Risk Factor for Smoking, Risk Factor for Obesity and Risk Factor for Sedentary Lifestyle and Highest Risk: Risk Factor for Dyslipidemia, Risk Factor for Diabetes, Risk Factor for Hypertension and Risk Factor for Depression For Smoking Smoking Risk Guidelines For Dyslipidemia Dyslipidemia Risk Guidelines For Diabetes Mellitus Diabetes Risk Guidelines For Obesity/Overweight Obesity/Overweight Risk Guidelines For Hypertension Hypertension Risk Guidelines For Sedentary Lifestyle Sedentary Lifestyle Risk Guidelines For Depression Depression Risk Guidelines Family History Family History (Updated 01/06/23 @ 00:37 by Nely Zamarripa) Father S/P CABG x 3 Motivation Motivation to Participate On a scale of 1 to 10, how prepared are you to commit to attending program?: 10 What do you see as barriers to successfully being able to complete the program?: nothing What do you see as the benefits of succesfully completing the program? In other words, what do you hope to get out of participating in the program?: education, weight loss, endurance Do you have a spouse or signficant other, family or friends who will help support you to complete the program?: yes
[2023-02-07 08:10] VITALS: BP 119/67; PULSE 77; O2SAT 95
--- NOTE | 2023-02-07 08:10 | PCM.CR.ITP ---
Diagnosis General Information Admitting Diagnosis: PCI with coronary stent, Non-Stemi Personal Learning Style:: Audio/Visual Stage of change r/t lifestyle modifications:: Contemplation Gave educational material for:: Treating Heart Disease, How The Heart Works, What it means to have Heart Disease, How Coronary Artery Disease is Diagnosed, Heart Procedures, What Heart Medications Do, Risk Factors & Modifications, Living an Active Life, Nutrition, Emotions & Heart Disease, Stress Management & Relaxation and Sleep Disorders & Heart Disease Education/Goals Cardiac Rehabilitation Goals Personal Goals: Initial Assessment: Improve energy level, Participate in home exercise program, Improve knowledge of cardiac disease, Improve muscle strength and endurance, Improve diet and eating habits (eat healthier) and Control risk factors (learn risk factor modification) Scale for measuring improvement of personal goals Diagnosis & Disease Process Outcomes/Goals: Pt IDs own risk factors & lifestyle modifications by Session 10, Verbalizes symptoms of angina & response by session 3., Pt independently manages and Other Additional Outcomes/Goals: Plan/Interventions: Assist Pt to ID & engage in lifestyle modification to reduce CVD risk, Instruct on individual risk factors, Review symptoms of angina & emergency actions, Review secondary diagnosis & identify educational needs. and Other see comment 30 day Reassessments:: Not Met 30 day Reassessments:: Not Met 30 day Reassessments:: Not Met 30 day Reassessments:: Not Met Final Reassessments:: Not Met Safety Referral to Physical Therapy: No Referral to [facility] Case Management: No Fall Risk Assessed:: Yes Assistive Devices:: None Exercise - Initial Assessment Visit Date of Eval: 02/07/23 (initial eval ) Mets: Pre-: >3 METS for 30 minutes by discharge, >5 METS for 30 minutes by discharge, >7 METS for 30 minutes by discharge and Unable to meet goal due to: (see comment below) Physician Prescribed Exercise Modalities: Rower, Airdyne, NuStep, SciFit and Lateral Stenotypist Frequency: 3x/week for 12 weeks [36 sessions] Intensity: 60-80% of age predicted maximum heart rate reserve Current METSs:: 3 Target Heart Rate:: 93-116 Resting Blood Pressure: 119/67 EKG Type: NSR Outcomes & Goals Goals:: Verbalizes understanding of THR, RPE & goal METS by session 6, Documents in home exercise log/reports 30 min aerobic 5 day/wk by DC, Demonstrates accurate pulse taking by DC and Other additional outcome/goals: see below Intervention & Plan Exercise Program Goals: Instruct on personal THR & RPE, Instruct on MET level & personal MET goal, Show patient to take own pulse /validate performance until accurate, Instruct on home exercise and Other additional plan/int Physical Activity Home Exercise Physical Activity - Home Exercise: Safe Exercise, Warm-up, Self-monitoring, Cool-Down, Home Exercise > 30 min Daily and Sitting Time <3 hours/daily Outcomes & Goals Outcomes/Goals: Demonstrates correct Warm-up/exercise Cool-Down (S3) if = 2.5 METs, Verbalizes symptoms of exercise intolerance by Session 3 (S3), Demonstrate safe equipment use (S3) & follows exercise prescrition (6) and Other: See below Intervention & Plan Plan/Intervention: Instruct warm-up & cool-down if exercising at > 2 METs, Instruct on symptoms of exercise intolerance & actions to take, Instruct & monitor on saf, Assess intial functional capacity & safety risk and Other See below Nutrition - Initial Assessment Program Goals Nutrition Program Goals Patient has diagnosis of Hyperlipidemia (ICD E78)?: Yes Visit Date of Eval: 02/07/23 (initial eval ) Cholesterol/Lipids (Other Core Measures) Determine presence & major risk factors that modify LDL goal: Cigarette smoking, Hypertension or hypertensive medication, Low HDL cholesterol <40 mg/dL*, Family history of premature CHD in Male < 55 years: female <65 yearsFa and Age men > 45 years; women >/= 55 years Outcomes/Goals: Pt IDs own risk factors & lifestyle modifications by Session 10, Verbalizes symptoms of angina & response by session 3., Pt independently manages and Other Additional Outcomes/Goals: Intervention/Plan: Advocate for lipid panel cholesterol medication if applicable, Instruct on personal lipid levels & lipid goals/NCEP guidelines, Instruct on cholesterol and Other additional plan/int Diabetes (Other Core Measures) Diabetes Type: Diagnosis Type II ICD-10 E11 Non-Insulin Dependent?: Yes Do you monitor your blood sugar at home?: Yes Referral to Diabetic Clinic:: Yes Outcomes/Goals:: Able to state symptoms of, Able to state, Able to state and Other additional Intervention/Plan:: Instruct on, Refer to, Instruct on and Other Weight Mgt (Other Care) Height: 5 ft 7 in Weight:: 224 lb BMI: 35.0 Diagnosis Overweight/Obesity BMI> 30% ICD-10 E66: Yes Diagnosis High BMI/Morbid Obesity BMI> 35% ICD-10 Z68: Yes Outcomes/Goals: Pt sets, maintains & shows weight loss goal & trend during rehab and Other additional outcomes/goals Intervention/Plan: Instruct on ideal BMI & set weight loss goal w/patient, Assist pt to ID & incorporate diet changes for weight loss by S9, Refer to Structured Weight Loss program as appropriate, Encourage goal of using 250-300dcal per session for weight loss and Other additional plan/interventions Healthy Eating Habits Will attend diet classes:: Yes Outcomes/Goals:: Consume diet rich in vegs,fruits,whole grain/high fiber,fish,lean meat, Limit sat/trans fats,cholesterol & added salts & sugars and Other additional outcome/goals: Intervention/Plan:: Assess current eating habits and Other Additional plan/interventions Education Gave educational materials for:: Signs & symptoms of hypoglycemia, Signs & symptoms of hyperglycemia and Relate diabetes to coronary artery disease Core - Initial Assessment Visit Date of Eval: 02/07/23 (initial eval ) Medication Compliance Preventative Medication(s):: Aspirin, Clopidogrel/P2Y12 inhibit, Statin/lipid and Beta taras H/O mental health issues: depression, anxiety, or addiction?: Yes Doesn?t believe in the benefits of treatment?: No Believes medications are unnecessary or harmful?: No Has a concern about medication side effects?: No Expresses concern over the cost of medications?: No Outcomes/Goals: Verbalizes medications,desired effect & common side effects @ DC, Pt self-reports following medication regimen, Keeps card in wallet w/medications listed by DC and Other additional outcome/goals: Interventions/plans: Instruct on medication effects & side effects, Review medication list w/patient every two weeks, Instruct importance of taking meds as ordered & assist problem solving and Other additional Tobacco Use Tobacco Use: Non-smoker How long ago did you quit using tobacco products?: Greater than or equal to 6 months ago Do you use smokeless tobacco?: No Hypertension Hypertension Diagnosis:: Hypertension ICD-10 I10 Resting Blood Pressure:: 119/67 [place] [employer] Hypertension Guidelines Outcomes/Goals: Able to verbalize/achieve optimal blood pressure <130/80, Incorporates diet changes & exercise for blood pressure control by DC and Other additional outcomes/goals Interventions/plan: Instruct on optimal blood pressure, hypertension & medications, Instruct on effects of sodium, alcohol, stress, exercise &hypertension and Other additional plan/interventions Tobacco Cessation Referral Smoking Cessation Referral:: No Individual Education/Counseling:: No Education Schedule Given:: Yes Psychosocial - Initial Assess VIsit Date of Eval: 02/07/23 (initial eval ) History of previous Mental disease:: Yes (pt is doing well and states she is no longer depressed) History of Emotional Disorders: Depression (pt is on meds and doing well) Target Goals Target Goals Outcomes/Goals: See list Psychosocial Outcomes/Goals:: ID's personal stressors & 2 strategies to manage stress by discharge and Other Additional outcome/goals: Intervention/Plan: See List Interventions/Plan:: Assess stressors,coping strategies & signs of derpression on admission, Instruct/assist pt to develop coping & personal stress Mgt strategies, Refer to Behavioral Health if appropriate, Refer to Physician if appropriate, Instruct patient to recognize signs & symptoms of depression, Instruct patient to recog and Other additional plan/intervention Patient Health Questionnaire PHQ-9 Screening Initial Assessment: 1. Little interest or pleasure in doing things: Several days 2. Feeling down, depressed, or hopeless: Not at all 3. Trouble falling or staying asleep, or sleeping too much: Nearly every day 4. Feeling tired or having little energy: Nearly every day 5. Poor appetite or overeating: More than half the days 6. Feeling bad about yourself -- or that you are a failure or have let yourself or your family down: Not at all 7. Trouble concentrating on things, such as reading the newspaper or watching television: Not at all 8. Moving or speaking so slowly that other people could have noticed. Or the opposite - being so fidgety or restless that you have been moving around a lot more than usual: Not at all 9. Thoughts that you would be better off , or of hurting yourself in some way: Not at all How difficult have these problems made it for you to do your work, take care of things at home, or get along with other people?: Not difficult at all Total Score: 9 [place]-Q SV Test Statements CAD is a disease of the arteries in the heart: False Examples of risk factors for heart disease: True Angina is chest pain or discomfort: I Don't Know The benefits of resistance training include: True Eating more meat and dairy products: False Anti-platelet medications such as aspirin are important: True The only effective way to manage stress: False An exercise warm-up slowly increases heart rate: True Prepared, processed foods usually have high sodium: True Depression is common after a heart attack: True The statin medications lower cholesterol: True To control blood pressure, lower the amount of sodium: True If someone gets chest discomfort during walking: False Transfats are partially hydrogenated vegetable oils: I Don't Know Sleep apnea that is not treated increases the risk: True To control cholesterol, one should become a vegetarian: False Someone knows if he/she is exercising at the right level: False Diabetes cannot be prevented with exercise & health eating: False Stress is a large risk for heart attack: True A diet that can help lower blood pressure is rich in: True Total Score Total Correct Responses: 16 Self-Efficacy 6-Item Scale Initial Assessment: We would like to know how confident you are in doing certain activities. Please select your confidence level for: Fatigue Select Number: 6 Physical Discomfort or Pain Select Number: 9 Emotional Distress Select Number: 9 Other Symptoms or Health Problems Select Number: 6 Different Tasks and Activities Select Number: 7 Medication Select Number: 8 Total Score:: 7 Nutrition Survey Nutrition Survey Instructions Scoring Instructions Nutrition Survey Initial: Have you lost >10 lbs over the past 2 months without trying?: No Are you following a special diet at home for diabetes, low fat, or low salt?: Yes Are you interested in meeting with a dietitian for help understanding your diet?: No Do you eat less than 3 meals a day?: No Do you eat fatty meats (velasquez, sausage, ribs, etc), fried foods, desserts, large amounts of salad dressings, margarine, butter, or cheese most days?: Yes Do you have food allergies? [Enter types in comment field]: No Do you eat in restaurants more than 3 times a week?: No Do you season food with salt, seasoning salt, or garlic salt?: Yes Do you used canned, boxed, frozen meals, or soups, seasoning packets?: Yes Total Score:: 4 Exercise - Final/Discharge Physician Prescribed Exercise Modalities: Rower, Airdyne, NuStep, SciFit and Lateral Stenotypist Frequency: 3x/week for 12 weeks [36 sessions] Intensity: 60-80% of age predicted maximum heart rate reserve Current METSs:: 3 Target Heart Rate:: 93-116 Nutrition - 30-Day Assessment Weight Mgt (Other Care) Height: 5 ft 7 in Weight:: 224 lb BMI: 35.0 Nutrition - 60-Day Assessment Weight Mgt (Other Care) Height: 5 ft 7 in Weight:: 224 lb BMI: 35.0 Core - Final Assessment Hypertension Resting Blood Pressure:: 119/67 [place] [employer] Hypertension Guidelines Core - 60-Day Assessment Hypertension Resting Blood Pressure:: 119/67 [place] [employer] Hypertension Guidelines Psychosocial - 30-Day Assess Target Goals Target Goals Psychosocial - 60-Day Assess Target Goals Target Goals Psychosocial - 90-Day Assess Target Goals Target Goals Psychosocial - Final Assessmen Target Goals Target Goals Nutrition - 90-Day Assessment Weight Mgt (Other Care) Height: 5 ft 7 in Weight:: 224 lb BMI: 35.0 Nutrition - Final Assessment Program Goals Patient has diagnosis of Hyperlipidemia (ICD E78)?: Yes Weight Mgt (Other Care) Height: 5 ft 7 in Weight:: 224 lb BMI: 35.0
[2023-02-07 08:17] VITALS: BP 119/67
[2023-02-07 09:08] VITALS: BMI 35.0
[2023-02-07 09:18] VITALS: BMI 35.0
== END | disposition home or self-care (01) ==
LOC: CR 07:43
PROVIDERS: PCP Nurse Practitioner Adult Health; Referring Provider Internal Medicine Cardiovascular Disease; Visit Provider Internal Medicine Cardiovascular Disease
DX: Z95.5 Presence of coronary angioplasty implant and graft (principal)

== ENCOUNTER 2023-02-14 10:15 | Outpatient (RCR) | payer MEDICARE, SELFPAY ==
[2023-02-07 09:18] VITALS: BMI 35.0
== END 2023-02-15 23:59 ==
LOC: CR 10:15
PROVIDERS: PCP Nurse Practitioner Adult Health; Referring Provider Internal Medicine Cardiovascular Disease; Visit Provider Internal Medicine Cardiovascular Disease
DX: I21.4 Non-ST elevation (NSTEMI) myocardial infarction (principal); Z95.5 Presence of coronary angioplasty implant and graft
CPT/HCPCS: 93798

== ENCOUNTER 2023-03-16 10:15 | Outpatient (RCR) | payer MEDICARE, SELFPAY ==
[2023-02-07 09:18] VITALS: BMI 35.0
--- NOTE | 2023-03-09 10:51 | CR.ITP_ITS ---
Exercise - Initial Assessment Visit Session #:: 10 Nutrition - Initial Assessment Weight Mgt (Other Care) Height: 5 ft 7 in Weight:: 224 lb BMI: 35.0 Psychosocial - Initial Assess Target Goals Target Goals Patient Health Questionnaire PHQ-9 Screening 30-Day Re-eval Assessment: 1. Little interest or pleasure in doing things: Several days 2. Feeling down, depressed, or hopeless: Not at all 3. Trouble falling or staying asleep, or sleeping too much: Nearly every day 4. Feeling tired or having little energy: Nearly every day 5. Poor appetite or overeating: More than half the days 6. Feeling bad about yourself -- or that you are a failure or have let yourself or your family down: Not at all 7. Trouble concentrating on things, such as reading the newspaper or watching television: Not at all 8. Moving or speaking so slowly that other people could have noticed. Or the opposite - being so fidgety or restless that you have been moving around a lot more than usual: Not at all 9. Thoughts that you would be better off , or of hurting yourself in some way: Not at all How difficult have these problems made it for you to do your work, take care of things at home, or get along with other people?: Not difficult at all Total Score: 9 Self-Efficacy 6-Item Scale 30-Day Re-eval Assessment: We would like to know how confident you are in doing certain activities. Please select your confidence level for: Fatigue Select Number: 6 Physical Discomfort or Pain Select Number: 9 Emotional Distress Select Number: 9 Other Symptoms or Health Problems Select Number: 6 Different Tasks and Activities Select Number: 7 Medication Select Number: 8 Total Score:: 7 Nutrition Survey Nutrition Survey Instructions Scoring Instructions Exercise - 30-day Assessment Visit Date of Eval: 03/09/23 Session #:: 10 Physician Prescribed Exercise Modalities: NuStep and Lateral Video Game Tester Frequency: 3x/week for 12 weeks [36 sessions] Intensity: 60-80% of age predicted maximum heart rate reserve Duration: 30 - 45 minutes Current METSs:: 3 Target Heart Rate:: 93-116 Current RPE:: 12-13 Maximum Excercise HR:: 106 Resting Blood Pressure: 140/70 Maximum Exercise Blood Pressure: 150/80 EKG Type: NSR to ST with rare PAC Outcomes & Goals Goals:: Verbalizes understanding of THR, RPE & goal METS by session 6, Documents in home exercise log/reports 30 min aerobic 5 day/wk by DC, Demonstrates accurate pulse taking by DC and Other additional outcome/goals: see below Intervention & Plan Exercise Program Goals: Instruct on personal THR & RPE, Instruct on MET level & personal MET goal, Show patient to take own pulse /validate performance until accurate, Instruct on home exercise and Other additional plan/int 30-day Reassessments 30 day Reassessments:: Progressing Reassessment Notes & Comments:: RPE explained Physical Activity Home Exercise Physical Activity - Home Exercise: Safe Exercise, Warm-up, Self-monitoring, Cool-Down, Home Exercise > 30 min Daily and Sitting Time <3 hours/daily Outcomes & Goals Outcomes/Goals: Demonstrates correct Warm-up/exercise Cool-Down (S3) if = 2.5 METs, Verbalizes symptoms of exercise intolerance by Session 3 (S3), Demonstrate safe equipment use (S3) & follows exercise prescrition (6) and Other: See below Intervention & Plan Plan/Intervention: Instruct warm-up & cool-down if exercising at > 2 METs, Instruct on symptoms of exercise intolerance & actions to take, Instruct & monitor on saf, Assess intial functional capacity & safety risk and Other See below 30-day Reassessments 30 day Reassessments:: Progressing Reassessment Notes & Comments:: warm up encouraged Nutrition - 30-Day Assessment Program Goals Nutrition Program Goals Patient has diagnosis of Hyperlipidemia (ICD E78)?: Yes Visit Date of Eval: 03/09/23 Session #:: 10 Cholesterol/Lipids (Other Core Measures) Determine presence & major risk factors that modify LDL goal: Cigarette smoking, Hypertension or hypertensive medication, Low HDL cholesterol <40 mg/dL*, Family history of premature CHD in Male < 55 years: female <65 yearsFa and Age men > 45 years; women >/= 55 years Outcomes/Goals: Pt IDs own risk factors & lifestyle modifications by Session 10, Verbalizes symptoms of angina & response by session 3., Pt independently manages and Other Additional Outcomes/Goals: Intervention/Plan: Advocate for lipid panel cholesterol medication if applicable, Instruct on personal lipid levels & lipid goals/NCEP guidelines, Instruct on cholesterol and Other additional plan/int 30-day Reassessments:: Progressing Reassessment Notes & Comments:: risk factors explained Diabetes (Other Core Measures) Diabetes Type: Diagnosis Type II ICD-10 E11 Non-Insulin Dependent?: Yes Do you monitor your blood sugar at home?: Yes Outcomes/Goals:: Able to state symptoms of, Able to state, Able to state and Other additional Intervention/Plan:: Instruct on, Refer to, Instruct on and Other 30-day Reassessments:: Progressing Reassessment Notes & Comments:: will attend nutrition class Weight Mgt (Other Care) Height: 5 ft 7 in Weight:: 224 lb BMI: 35.0 Diagnosis Overweight/Obesity BMI> 30% ICD-10 E66: Yes Diagnosis High BMI/Morbid Obesity BMI> 35% ICD-10 Z68: Yes Outcomes/Goals: Pt sets, maintains & shows weight loss goal & trend during rehab and Other additional outcomes/goals Intervention/Plan: Instruct on ideal BMI & set weight loss goal w/patient, Assist pt to ID & incorporate diet changes for weight loss by S9, Refer to Structured Weight Loss program as appropriate, Encourage goal of using 250- 300dcal per session for weight loss and Other additional plan/interventions 30 day Reassessments:: Progressing Reassessment Notes & Comments:: pt will attend nutrition class Healthy Eating Habits Will attend diet classes:: Yes Outcomes/Goals:: Consume diet rich in vegs,fruits,whole grain/high fiber,fish,lean meat, Limit sat/trans fats,cholesterol & added salts & sugars and Other additional outcome/goals: 30-day Reassessments:: Progressing Reassessment Notes & Comments:: pt will attend nutrition class Education Gave educational materials for:: Signs & symptoms of hypoglycemia, Signs & symptoms of hyperglycemia, Relate diabetes to coronary artery disease and Healthy eating Nutrition - 60-Day Assessment Weight Mgt (Other Care) Height: 5 ft 7 in Weight:: 224 lb BMI: 35.0 Core - 30-Day Assessment Visit Date of Eval: 03/09/23 Session #:: 10 Medication Compliance Preventative Medication(s):: Aspirin, Clopidogrel/P2Y12 inhibit, Statin/lipid and Beta taras H/O mental health issues: depression, anxiety, or addiction?: Yes Doesn?t believe in the benefits of treatment?: No Believes medications are unnecessary or harmful?: No Has a concern about medication side effects?: No Expresses concern over the cost of medications?: No Outcomes/Goals: Verbalizes medications,desired effect & common side effects @ DC, Pt self-reports following medication regimen, Keeps card in wallet w/medications listed by DC and Other additional outcome/goals: Interventions/plans: Instruct on medication effects & side effects, Review medication list w/patient every two weeks, Instruct importance of taking meds as ordered & assist problem solving and Other additional 30-day Reassessments:: Progressing Reassessment Notes & Comments:: pt encouraged to take her meds Tobacco Use Tobacco Use: Non-smoker Hypertension Hypertension Diagnosis:: Hypertension ICD-10 I10 Resting Blood Pressure:: 140/70 [place] [employer] Hypertension Guidelines Peak Exercise Blood Pressure:: 150/80 Outcomes/Goals: Able to verbalize/achieve optimal blood pressure <130/80, Incorporates diet changes & exercise for blood pressure control by DC and Other additional outcomes/goals Interventions/plan: Instruct on optimal blood pressure, hypertension & medications, Instruct on effects of sodium, alcohol, stress, exercise &hypertension and Other additional plan/interventions 30 day Reassessments:: Progressing Reassessment Notes & Comments:: pt encouraged to take her meds Tobacco Cessation Referral Smoking Cessation Referral:: No Individual Education/Counseling:: No Education Schedule Given:: Yes Psychosocial - 30-Day Assess VIsit Date of Eval: 03/09/23 Session #:: 10 History of previous Mental disease:: Yes History of Emotional Disorders: Depression (pt is on meds and states she is no longer depressed) Target Goals Target Goals Psychosocial Test Tool Used:: [employer] QOL Cardiac and PHQ-9 Questionnaire phq-9 Severity Outcomes/Goals: See list Psychosocial Outcomes/Goals:: ID's personal stressors & 2 strategies to manage stress by discharge and Other Additional outcome/goals: Intervention/Plan: See List Interventions/Plan:: Assess stressors,coping strategies & signs of derpression on admission, Instruct/assist pt to develop coping & personal stress Mgt strategies, Refer to Behavioral Health if appropriate, Refer to Physician if appropriate, Instruct patient to recognize signs & symptoms of depression, Instruct patient to recog and Other additional plan/intervention 30-day Reassessments: 30 day Reassessments:: Met Psychosocial - 60-Day Assess Target Goals Target Goals Outcomes/Goals: See list Psychosocial Outcomes/Goals:: ID's personal stressors & 2 strategies to manage stress by discharge and Other Additional outcome/goals: Psychosocial - 90-Day Assess Target Goals Target Goals Psychosocial - Final Assessmen Target Goals Target Goals Nutrition - 90-Day Assessment Weight Mgt (Other Care) Height: 5 ft 7 in Weight:: 224 lb BMI: 35.0 Nutrition - Final Assessment Weight Mgt (Other Care) Height: 5 ft 7 in Weight:: 224 lb BMI: 35.0
[2023-03-09 11:02] VITALS: BP 140/70; BMI 35.0
== END 2023-03-17 23:59 ==
LOC: CR 10:15
PROVIDERS: PCP Nurse Practitioner Adult Health; Referring Provider Internal Medicine Cardiovascular Disease; Visit Provider Internal Medicine Cardiovascular Disease
DX: I21.4 Non-ST elevation (NSTEMI) myocardial infarction (principal); Z95.5 Presence of coronary angioplasty implant and graft
CPT/HCPCS: 93798

== ENCOUNTER 2023-04-13 10:15 | Outpatient (RCR) | payer MEDICARE, SELFPAY ==
[2023-03-09 11:02] VITALS: BMI 35.0
[2023-03-18 00:45] VITALS: BP 140/70
--- NOTE | 2023-04-06 08:53 | PCM.CR.ITP ---
Nutrition - Initial Assessment Weight Mgt (Other Care) Height: 5 ft 7 in Weight:: 222 lb BMI: 34.7 Psychosocial - Initial Assess Target Goals Target Goals Patient Health Questionnaire PHQ-9 Screening 60-Day Re-eval Assessment: 1. Little interest or pleasure in doing things: Several days 2. Feeling down, depressed, or hopeless: Not at all 3. Trouble falling or staying asleep, or sleeping too much: Nearly every day 4. Feeling tired or having little energy: Nearly every day 5. Poor appetite or overeating: More than half the days 6. Feeling bad about yourself -- or that you are a failure or have let yourself or your family down: Not at all 7. Trouble concentrating on things, such as reading the newspaper or watching television: Not at all 8. Moving or speaking so slowly that other people could have noticed. Or the opposite - being so fidgety or restless that you have been moving around a lot more than usual: Not at all 9. Thoughts that you would be better off , or of hurting yourself in some way: Not at all How difficult have these problems made it for you to do your work, take care of things at home, or get along with other people?: Not difficult at all Total Score: 9 Self-Efficacy 6-Item Scale 60-Day Re-eval Assessment: We would like to know how confident you are in doing certain activities. Please select your confidence level for: Fatigue Select Number: 6 Physical Discomfort or Pain Select Number: 9 Emotional Distress Select Number: 9 Other Symptoms or Health Problems Select Number: 6 Different Tasks and Activities Select Number: 7 Medication Select Number: 8 Total Score:: 7 Nutrition Survey Nutrition Survey Instructions Scoring Instructions Exercise - 60-day Assessment Visit Date of Eval: 04/06/23 Session #:: 22 Physician Prescribed Exercise Modalities: NuStep Frequency: 3x/week for 12 weeks [36 sessions] Intensity: 60-80% of age predicted maximum heart rate reserve Duration: 30 - 45 minutes Current METSs:: 5 Target Heart Rate:: 116-132 Current RPE:: 13-14 Maximum Excercise HR:: 108 Resting Blood Pressure: 126/64 Maximum Exercise Blood Pressure: 134/72 EKG Type: NSR to ST with freq pac. intermittent sinus arrhythmia Outcomes & Goals Goals:: Verbalizes understanding of THR, RPE & goal METS by session 6, Documents in home exercise log/reports 30 min aerobic 5 day/wk by DC, Demonstrates accurate pulse taking by DC and Other additional outcome/goals: see below Intervention & Plan Exercise Program Goals: Instruct on personal THR & RPE, Instruct on MET level & personal MET goal, Show patient to take own pulse /validate performance until accurate, Instruct on home exercise and Other additional plan/int 30-day Reassessments 30 day Reassessments:: Met Physical Activity Home Exercise Physical Activity - Home Exercise: Safe Exercise, Warm-up, Self-monitoring, Cool-Down, Home Exercise > 30 min Daily and Sitting Time <3 hours/daily Outcomes & Goals Outcomes/Goals: Demonstrates correct Warm-up/exercise Cool-Down (S3) if = 2.5 METs, Verbalizes symptoms of exercise intolerance by Session 3 (S3), Demonstrate safe equipment use (S3) & follows exercise prescrition (6) and Other: See below Intervention & Plan Plan/Intervention: Instruct warm-up & cool-down if exercising at > 2 METs, Instruct on symptoms of exercise intolerance & actions to take, Instruct & monitor on saf, Assess intial functional capacity & safety risk and Other See below 30-day Reassessments 30 day Reassessments:: Met Nutrition - 30-Day Assessment Weight Mgt (Other Care) Height: 5 ft 7 in Weight:: 222 lb BMI: 34.7 Nutrition - 60-Day Assessment Program Goals Nutrition Program Goals Patient has diagnosis of Hyperlipidemia (ICD E78)?: Yes Visit Date of Eval: 04/06/23 Session #:: 22 Cholesterol/Lipids (Other Core Measures) Determine presence & major risk factors that modify LDL goal: Hypertension or hypertensive medication, Low HDL cholesterol <40 mg/dL*, Family history of premature CHD in Male < 55 years: female <65 yearsFa and Age men > 45 years; women >/= 55 years Outcomes/Goals: Pt IDs own risk factors & lifestyle modifications by Session 10, Verbalizes symptoms of angina & response by session 3., Pt independently manages and Other Additional Outcomes/Goals: Intervention/Plan: Advocate for lipid panel cholesterol medication if applicable, Instruct on personal lipid levels & lipid goals/NCEP guidelines, Instruct on cholesterol and Other additional plan/int 30-day Reassessments:: Progressing Reassessment Notes & Comments:: pt to attend nutrition class Diabetes (Other Core Measures) Diabetes Type: Diagnosis Type II ICD-10 E11 Non-Insulin Dependent?: Yes Do you monitor your blood sugar at home?: Yes Outcomes/Goals:: Able to state symptoms of, Able to state, Able to state and Other additional Intervention/Plan:: Instruct on, Refer to, Instruct on and Other 30-day Reassessments:: Progressing Reassessment Notes & Comments:: pt to attend nutrition class Weight Mgt (Other Care) Height: 5 ft 7 in Weight:: 222 lb BMI: 34.7 Diagnosis Overweight/Obesity BMI> 30% ICD-10 E66: Yes Diagnosis High BMI/Morbid Obesity BMI> 35% ICD-10 Z68: No Outcomes/Goals: Pt sets, maintains & shows weight loss goal & trend during rehab and Other additional outcomes/goals Intervention/Plan: Instruct on ideal BMI & set weight loss goal w/patient, Assist pt to ID & incorporate diet changes for weight loss by S9, Refer to Structured Weight Loss program as appropriate, Encourage goal of using 250-300dcal per session for weight loss and Other additional plan/interventions 30 day Reassessments:: Progressing Reassessment Notes & Comments:: pt to attend nutrition class Healthy Eating Habits Will attend diet classes:: Yes Outcomes/Goals:: Consume diet rich in vegs,fruits,whole grain/high fiber,fish,lean meat, Limit sat/trans fats,cholesterol & added salts & sugars and Other additional outcome/goals: Intervention/Plan:: Assess current eating habits and Other Additional plan/interventions 30-day Reassessments:: Progressing Reassessment Notes & Comments:: pt to attend nutrition class Education Gave educational materials for:: Signs & symptoms of hypoglycemia, Signs & symptoms of hyperglycemia, Relate diabetes to coronary artery disease and Healthy eating Core - 60-Day Assessment Visit Date of Eval: 04/06/23 Session #:: 22 Medication Compliance Preventative Medication(s):: Aspirin, Clopidogrel/P2Y12 inhibit, Statin/lipid and Beta taras H/O mental health issues: depression, anxiety, or addiction?: Yes Doesn?t believe in the benefits of treatment?: No Believes medications are unnecessary or harmful?: No Has a concern about medication side effects?: No Outcomes/Goals: Verbalizes medications,desired effect & common side effects @ DC, Pt self-reports following medication regimen, Keeps card in wallet w/medications listed by DC and Other additional outcome/goals: Interventions/plans: Instruct on medication effects & side effects, Review medication list w/patient every two weeks, Instruct importance of taking meds as ordered & assist problem solving and Other additional 30-day Reassessments:: Met Reassessment Notes & Comments:: Tobacco Use Tobacco Use: Non-smoker Hypertension Hypertension Diagnosis:: Hypertension ICD-10 I10 Resting Blood Pressure:: 126/64 [place] [employer] Hypertension Guidelines Peak Exercise Blood Pressure:: 134/72 Outcomes/Goals: Able to verbalize/achieve optimal blood pressure <130/80, Incorporates diet changes & exercise for blood pressure control by DC and Other additional outcomes/goals Interventions/plan: Instruct on optimal blood pressure, hypertension & medications, Instruct on effects of sodium, alcohol, stress, exercise &hypertension and Other additional plan/interventions 30 day Reassessments:: Progressing Reassessment Notes & Comments:: pt encouraged to take her meds Tobacco Cessation Referral Smoking Cessation Referral:: No Individual Education/Counseling:: No Education Schedule Given:: Yes Psychosocial - 30-Day Assess Target Goals Target Goals Psychosocial - 60-Day Assess VIsit Date of Eval: 04/06/23 Session #:: 22 History of previous Mental disease:: Yes (pt is on meds and states she is no longer depressed) Target Goals Target Goals 30-day Reassessments: 30 day Reassessments:: Met Psychosocial - 90-Day Assess Target Goals Target Goals Psychosocial - Final Assessmen Target Goals Target Goals Nutrition - 90-Day Assessment Weight Mgt (Other Care) Height: 5 ft 7 in Weight:: 222 lb BMI: 34.7 Nutrition - Final Assessment Weight Mgt (Other Care) Height: 5 ft 7 in Weight:: 222 lb BMI: 34.7
[2023-04-06 08:57] VITALS: BP 126/64
[2023-04-06 09:07] VITALS: BP 126/64; BMI 34.7
== END 2023-04-17 23:59 ==
LOC: CR 10:15
PROVIDERS: PCP Nurse Practitioner Adult Health; Referring Provider Internal Medicine Cardiovascular Disease; Visit Provider Internal Medicine Cardiovascular Disease
DX: I21.4 Non-ST elevation (NSTEMI) myocardial infarction (principal); Z95.5 Presence of coronary angioplasty implant and graft
CPT/HCPCS: 93798

== ENCOUNTER → 2024-01-01 | Outpatient (CLI) | payer MEDICARE, SELFPAY ==
[2023-04-06 09:07] VITALS: BMI 34.7
--- NOTE | 2024-01-01 06:23 | ECHOD_ITS ---
Reason For Study: Fatigue, ASHD/CAD Procedure This was a 2D Doppler, Color Flow transthoracic echocardiogram. Contrast injection was performed. The study was technically difficult. Exam performed in department. Left Ventricle Normal size and thickness. The left ventricular ejection fraction is 50 %. Diastolic function is indeterminate. Right Ventricle Normal right ventricle. Atria The left and right atria are normal. Mitral Valve Trivial mitral valve insufficiency. Tricuspid Valve Trivial tricuspid valve insufficiency. Unable to estimate RV systolic pressure due to insufficient tricuspid regurgitant envelope. Aortic Valve Trisinus/trileaflet aortic valve. Pulmonic Valve The pulmonic valve is not well visualized. Great Vessels Normal sized aortic root. Pericardium/Pleural No pericardial effusion. Medication 22 gauge I.V. with prn adaptor inserted into right arm. Diluted definity 2ml given slow IV push to enhance endocardial definition. MMode/2D Measurements & Calculations LVIDd: 5.0 cm IVSd: 1.1 cm Ao root diam: 3.2 cm LVIDs: 3.5 cm LVPWd: 0.95 cm LA dimension: 3.8 cm RVDd: 4.3 cm FS: 29.9 % LAV(MOD-bp): 51.2 ml LVAd ap4: 36.8 cm2 LVAd ap2: 33.4 cm2 LAV(MOD-bp) Indexed: 25.0 ml/m2 LVLd ap4: 8.4 cm LVLd ap2: 7.9 cm LAV(MOD-sp2): 54.0 ml EDV(MOD-sp4): 134.2 ml EDV(MOD-sp2): 121.1 ml LAV(MOD-sp4): 43.9 ml EDV(sp4-el): 137.4 ml EDV(sp2-el): 120.1 ml LVAs ap4: 25.5 cm2 LVAs ap2: 22.1 cm2 LVLs ap4: 7.5 cm LVLs ap2: 6.9 cm ESV(MOD-sp4): 73.9 ml ESV(MOD-sp2): 59.8 ml ESV(sp4-el): 73.2 ml ESV(sp2-el): 60.4 ml EF(MOD-sp4): 44.9 % EF(MOD-sp2): 50.6 % EF(sp4-el): 46.7 % SV(MOD-sp4): 60.2 ml SV(MOD-sp2): 61.3 ml SV(sp4-el): 64.2 ml LA A4 area: 16.6 cm2 RA A4 area: 16.1 cm2 TAPSE: 1.8 cm Time Measurements MV dec time: 0.27 sec Doppler Measurements & Calculations MV E max ramesh: 61.9 cm/sec Lat Peak E' Ramesh: 13.2 cm/sec Med Peak E' Ramesh: 9.0 cm/sec MV A max ramesh: 78.8 cm/sec E/E' lat: 4.7 E/E' med: 6.9 MV E/A: 0.79 MV V2 max: 81.9 cm/sec MV P1/2t max ramesh: 62.0 cm/sec Ao V2 max: 120.6 cm/sec MV max P.7 mmHg MV P1/2t: 83.1 msec Ao max P.8 mmHg MV V2 mean: 48.0 cm/sec Ao V2 mean: 86.7 cm/sec MV mean P.1 mmHg MV dec slope: 218.4 cm/sec2 Ao mean P.4 mmHg MV V2 VTI: 17.4 cm MVA(P1/2t): 2.6 cm2 Ao V2 VTI: 28.7 cm AV (velocity ratio): 1.0 LV V1 max: 119.5 cm/sec PA V2 max: 145.4 cm/sec LV V1 max P.7 mmHg PA max PG (full): 5.7 mmHg LV V1 mean P.7 mmHg PA V2 mean: 98.4 cm/sec LV V1 mean: 75.0 cm/sec PA mean PG (full): 2.8 mmHg LV V1 VTI: 28.8 cm ECHO/Echo Complete W/ Contrast Interpretation Summary The left ventricular ejection fraction is 50 %. Ordering Physician: Allegra Genao Referring Physician: Allegra Genao Performed By: Jacob Umana RCS
--- NOTE | 2024-01-03 07:59 | STRESSREP ---
Stress Test Report Date: 01/01/2024 Procedure: Pharmacologic stress nuclear imaging study Indications: Coronary artery disease Consent: Per the patient Procedure: The patient underwent pharmacologic (Regadenoson 0.4mg ) evaluation with a peak heart rate of 101 beats per minute (65%predicted maximal heart rate) and a peak blood pressure of 120/78 mmHg. The baseline ECG demonstrated sinus rhythm with nonspecific ST changes. The peak pharmacologic ECG demonstrated no ischemic changes. There were no cardiac dysrhythmias pretest, during pharmacologic infusion, or recovery. There was no complaint of chest discomfort during pharmacologic infusion or recovery. The patient was injected with 14.0 millicuries of technetium 99m Cardiolite and subsequently rest SPECT Cardiolite nuclear imaging was obtained in the horizontal long, vertical long, and short axis views. The patient underwent pharmacologic (Regadenoson) evaluation. The patient was injected with 43.8 millicuries of technetium 99m Cardiolite and subsequently stress SPECT Cardiolite nuclear imaging was obtained in the horizontal long, vertical long, and short axis views. A gated Cardiolite study at peak stress was obtained. The examination was stopped secondary to completion of protocol. Rest and stress SPECT Cardiolite nuclear imaging status post realignment, normalization, and attenuation correction demonstrate no fixed or reversible perfusion defects. There is end systolic thickening and brightening. The gated Cardiolite study demonstrates myocardial thickening and inward wall motion. The reported LVEF is 63%. Impression: 1. Pharmacologic (Regadenoson) evaluation 2. Peak pharmacologic ECG with no diagnostic ischemic changes. 3. There were no cardiac dysrhythmias pretest, during pharmacologic infusion, or recovery. 5. Rest and stress SPECT Cardiolite nuclear imaging demonstrate relative uniform tracer uptake and myocardial perfusion appearing within normal limits. 6. The gated Cardiolite study reports an LVEF of 63%. This note was generated with Electronifieation software. It may contain incorrect words, spelling, and punctuation that were not noted in checking the note before signing.
== END | disposition home or self-care (01) ==
LOC: CVS 06:22
PROVIDERS: PCP Nurse Practitioner Adult Health; Referring Provider Internal Medicine Cardiovascular Disease; Visit Provider Internal Medicine Cardiovascular Disease
DX: R53.83 Other fatigue (principal); E11.9 Type 2 diabetes mellitus without complications; I10 Essential (primary) hypertension; I25.10 Atherosclerotic heart disease of native coronary artery without angina pectoris; R06.09 Other forms of dyspnea
CPT/HCPCS: 78452; 93017; 93306; A9500; Q9957; A4216; C8929; J2785

== ENCOUNTER → 2024-05-07 | Outpatient (CLI) | payer MEDICARE, SELFPAY ==
[2023-04-06 09:07] VITALS: BMI 34.7
--- NOTE | 2024-05-07 11:15 | RAD_ITS ---
EXAM: XR RIGHT HAND COMPLETE, 3 OR MORE VIEWS CLINICAL INDICATION: hand injury TECHNIQUE: Frontal, lateral and oblique views of the right hand. COMPARISON: No relevant prior studies available. FINDINGS: BONES/JOINTS: No acute fracture or subluxation. Prominent degenerative narrowing and bony hypertrophy of the first CMC joint. SOFT TISSUES: Dorsal soft tissue swelling. No radiopaque foreign body. RAD/Hand Min 3 Views IMPRESSION: No acute fracture or subluxation. Soft tissue swelling. DJD. Electronically Signed: Thai Nuñez MD at 12:13 EST ,
== END | disposition home or self-care (01) ==
LOC: MTRAD 11:15
PROVIDERS: PCP Nurse Practitioner Adult Health; Referring Provider Physician Assistant; Visit Provider Physician Assistant
DX: S69.91XA Unspecified injury of right wrist, hand and finger(s), initial encounter (principal)
CPT/HCPCS: 73130

== ENCOUNTER → 2024-06-23 | Outpatient (CLI) | payer MEDICARE, SELFPAY ==
[2023-04-06 09:07] VITALS: BMI 34.7
--- NOTE | 2024-06-23 09:38 | ECHOD_ITS ---
Reason For Study: CORONARY ARTERY DISEASE Procedure This was a 2D Doppler, Color Flow transthoracic echocardiogram. Exam performed in department. Left Ventricle Normal LV size. Apical false tendon noted. The estimated ejection fraction is 55-60 %. No evidence for diastolic dysfunction. Left ventricular systolic function is normal. No regional wall motion abnormalities noted. Right Ventricle Normal RV size. Normal systolic function. Atria The left and right atria are normal. Mitral Valve The mitral valve is structurally normal. No prolapse or stenosis seen. Tricuspid Valve Normal tricuspid valve. Trivial tricuspid valve insufficiency. Unable to estimate RV systolic pressure due to insufficient tricuspid regurgitant envelope. Aortic Valve Trisinus/trileaflet aortic valve. Pulmonic Valve Normal pulmonic valve. Trivial pulmonic valve insufficiency. Great Vessels Normal aortic root. Pericardium/Pleural No pericardial effusion. MMode/2D Measurements & Calculations LVIDd: 5.0 cm IVSd: 0.96 cm LVOT diam: 2.0 cm LVIDs: 2.8 cm LVPWd: 0.98 cm LVOT area: 3.2 cm2 RVDd: 3.7 cm FS: 43.0 % asc Aorta Diam: 2.9 cm LAV(MOD-bp): 29.7 ml LVAd ap4: 21.4 cm2 LAV(MOD-bp) Indexed: 14.5 ml/m2 LVLd ap4: 7.2 cm LAV(MOD-sp2): 36.6 ml EDV(MOD-sp4): 53.1 ml LAV(MOD-sp4): 24.3 ml EDV(sp4-el): 53.8 ml LVAs ap4: 12.5 cm2 LVLs ap4: 6.0 cm ESV(MOD-sp4): 21.1 ml ESV(sp4-el): 22.1 ml EF(MOD-sp4): 60.2 % EF(sp4-el): 59.0 % LVAd ap2: 24.3 cm2 SV(MOD-sp4): 32.0 ml SV(MOD-sp2): 39.6 ml LVLd ap2: 7.3 cm SI(MOD-sp4): 15.6 ml/m2 SI(MOD-sp2): 19.4 ml/m2 EDV(MOD-sp2): 68.5 ml EDV(sp2-el): 68.8 ml LVAs ap2: 14.3 cm2 LVLs ap2: 6.1 cm ESV(MOD-sp2): 28.9 ml ESV(sp2-el): 28.4 ml EF(MOD-sp2): 57.8 % SV(sp4-el): 31.7 ml Ao sinus diam: 2.[address] Junction: 2.4 cm LA dimension(2D): 3.7 cm LA A4 area: 11.8 cm2 RA A4 area: 15.7 cm2 TAPSE: 1.7 cm Time Measurements MV dec time: 0.19 sec Doppler Measurements & Calculations MV E max ramesh: 59.7 cm/sec Lat Peak E' Ramesh: 9.5 cm/sec Med Peak E' Ramesh: 8.1 cm/sec MV A max ramesh: 65.1 cm/sec E/E' lat: 6.3 E/E' med: 7.4 MV E/A: 0.92 MV dec slope: 310.6 cm/sec2 Ao V2 max: 106.2 cm/sec LV V1 max: 85.4 cm/sec Ao max P.5 mmHg LV V1 max P.9 mmHg Ao V2 mean: 79.9 cm/sec LV V1 mean P.7 mmHg Ao mean P.7 mmHg LV V1 mean: 61.9 cm/sec Ao V2 VTI: 19.1 cm LV V1 VTI: 16.3 cm AV (velocity ratio): 0.85 SARAH(I,D): 2.7 cm2 SARAH(V,D): 2.6 cm2 SV(LVOT): 52.4 ml PA V2 max: 120.2 cm/sec ECHO/Echo Complete Interpretation Summary The estimated ejection fraction is 55-60 %. No evidence for diastolic dysfunction. Structually normal valves. Ordering Physician: Allegra Genao Referring Physician: Allegra Genao MD Performed By: Enid Robert RDCS
== END | disposition home or self-care (01) ==
LOC: CVS 09:35
PROVIDERS: PCP Nurse Practitioner Adult Health; Referring Provider Internal Medicine Cardiovascular Disease; Visit Provider Internal Medicine Cardiovascular Disease
DX: I25.10 Atherosclerotic heart disease of native coronary artery without angina pectoris (principal)
CPT/HCPCS: 93306

== ENCOUNTER 2024-07-03 14:04 | Inpatient (IN) | payer MEDICARE, SELFPAY ==
[2023-04-06 09:07] VITALS: BMI 34.7
[2024-07-03] VITALS (13 sets, daily range): BP systolic 113–141; BP diastolic 63–100; PULSE 64–83; RESP 15–92; TEMP 36.2–36.7; O2SAT 87–100; BMI 28.5; BMI 31.1
--- NOTE | 2024-07-03 14:46 | EX.ED.DYSGE1 ---
HPI <JANETH Malone - Last Filed: 07/03/24 19:05> History of Present Illness Chief Complaint: Chest Pain Narrative Narrative: 68-year-old female with PMH of HTN, HLD, DM2, COPD, CAD presents with worsening shortness of breath since this morning. She states she had COVID before [place] and has had a lingering cough and shortness of breath that her primary care doctor thought could be long COVID symptoms. This morning she felt much more short of breath at rest prompting her to come in. She also reports over the last few days having episodes of a sharp pinching pain in the left side of her chest that lasts a few seconds and occur about 3 times a day. She reports feeling more congested lately. No fever or chills. No nausea or vomiting or abdominal pain. PFSH <JANETH Malone - Last Filed: 07/03/24 19:05> [facility] Medical History Contusion of right hand Myopic degeneration Costochondritis Diabetic neuropathy Tear of meniscus of left knee Tear of meniscus of right knee Fatigue Coronary artery disease Atherosclerosis of coronary artery of [place] heart without angina pectoris Dyslipidemia Barretts esophagus Anemia Fibromyalgia COPD (chronic obstructive pulmonary disease) Former smoker Hypertension Chronic pain Hyperthyroidism Diabetes NSTEMI, initial episode of care History of diabetes mellitus Home Medications ?Medication ?Instructions ?Recorded ?Last Taken ?Type duloxetine 30 mg capsule,delayed 30 mg PO BID depression 08/11/16 Unknown History release pramipexole 0.5 mg tablet (Mirapex) 0.5 mg PO QHS 08/11/16 Unknown History metformin 1,000 mg tablet 1,000 mg PO BID 01/05/23 Unknown History aspirin 81 mg chewable tablet 81 mg PO DAILY@0800 #30 tabs 01/09/23 Unknown Rx pantoprazole 40 mg tablet,delayed 40 mg PO DAILY 02/07/23 Unknown History release ezetimibe 10 mg tablet 10 mg PO DAILY #30 tabs 06/08/23 Unknown Rx semaglutide 1 mg/dose (4 mg/3 mL) 2 mg subcut QWEEK 12/06/23 Unknown History subcutaneous pen injector (Ozempic) metoprolol tartrate 25 mg tablet 25 mg PO BID #180 tabs 03/11/24 Unknown Rx clopidogrel 75 mg tablet 75 mg PO DAILY #90 tabs 04/07/24 Unknown Rx hydrochlorothiazide 25 mg tablet 25 mg PO DAILY #90 tabs 04/09/24 Unknown Rx B-complex with vitamin C 1 cap PO QDAY 05/07/24 Unknown History ascorbic acid (vitamin C) 1,000 mg 1 g PO QDAY 05/07/24 Unknown History tablet cholecalciferol (vitamin D3) 50 50 mcg PO QDAY 05/07/24 Unknown History mcg (2,000 unit) capsule d-mannose 500 mg capsule (AZO 1,300 mg PO QDAY 05/07/24 Unknown History D-Mannose) ferrous sulfate 325 mg (65 mg 325 mg PO QDAY 05/07/24 Unknown History iron) tablet fluticasone propionate 50 1 spray intranasal QDAY 05/07/24 Unknown History mcg/actuation nasal spray,suspension (Flonase Allergy Relief) lactobacillus combination no.4 3 3,000 mmu cells PO QDAY 05/07/24 Unknown History billion cell capsule (Probiotic) magnesium 250 mg tablet 250 mg PO QDAY 05/07/24 Unknown History glipizide 5 mg tablet 5 mg PO BID 07/03/24 Unknown History levothyroxine 112 mcg tablet 112 mcg PO DAILY 07/03/24 Unknown History Allergy/AdvReac Type Severity Reaction Status Date / Time Latex, Natural Rubber Allergy Severe rash Verified 07/03/24 14:11 nitrofurantoin Allergy NEEDS Verified 07/03/24 14:11 FOLLOW-UP clarithromycin (From Biaxin) AdvReac Other Verified 07/03/24 14:11 moexipril (From Univasc) AdvReac Other Verified 07/03/24 14:11 sulfamethoxazole (From AdvReac Other Verified 07/03/24 14:11 Bactrim) trimethoprim (From Bactrim) AdvReac Other Verified 07/03/24 14:11 Family History Father S/P CABG x 3 Congestive heart failure Mother Psoriasis Rheumatoid arthritis COPD (chronic obstructive pulmonary disease) Hepatitis C Lung nodules Surgical History History of total left knee replacement History of dilatation and curettage History of neck surgery History of shoulder surgery H/O bilateral breast reduction surgery History of appendectomy Hx of right coronary artery stent placement (~01/08/23) Social History Smoking Status: Former smoker alcohol intake: current alcohol intake frequency: holidays/special occasions only substance use type: does not use caffeine: Yes Type: tea Number of servings: 2 ROS <JANETH Malone - Last Filed: 07/03/24 19:05> ROS ED ROS Narrative Constitutional: Negative for fever, chills. ENT: Positive for rhinorrhea. CVS: Positive for chest pain. Respiratory: Positive for shortness of breath, cough. GI: Negative for abdominal pain, nausea, vomiting. EXAM <JANETH Malone - Last Filed: 07/03/24 19:05> Physical Exam Narrative Exam Narrative: CONST: Patient sitting in no acute distress. EYES: Normal inspection. NECK: Normal inspection. RESP: No respiratory distress, CTAB. CVS: Regular rate and rhythm, no murmur, no gallop. ABD: Soft and nontender, no guarding or rebound, nondistended. SKIN: Color normal, no rash, warm, dry, intact. EXTREMITIES: Normal appearance, no pedal edema. NEURO: Alert and answering questions appropriately. PSYCH: Normal affect. Const Vital Signs: 07/03/24 14:04 07/03/24 14:11 07/03/24 14:19 Temperature 97.4 F L 97.4 F L Temperature Source Oral Oral Pulse Rate 64 64 Respiratory Rate 18 20 H 92 H Blood Pressure 132/65 H 132/65 H Blood Pressure Mean 87 87 Pulse Ox 87 87 Oxygen Delivery Method Room Air Room Air Nasal Cannula Oxygen Flow Rate (L/min) 4 07/03/24 14:58 07/03/24 15:48 07/03/24 16:11 Temperature 97.9 F Temperature Source Oral Pulse Rate 74 71 Respiratory Rate 15 16 Blood Pressure 141/80 H Blood Pressure Mean 100 Pulse Ox 97 97 Oxygen Delivery Method Nasal Cannula Nasal Cannula Oxygen Flow Rate (L/min) 4 4 07/03/24 17:00 07/03/24 18:00 07/03/24 19:00 Temperature 98.0 F 97.9 F 97.8 F Temperature Source Oral Oral Oral Pulse Rate 83 69 64 Respiratory Rate 20 H 19 H 18 Blood Pressure 123/83 H 117/64 113/63 Blood Pressure Mean 96 81 79 Pulse Ox 95 99 100 Oxygen Delivery Method Room Air Nasal Cannula Nasal Cannula Oxygen Flow Rate (L/min) 2 2 2 07/03/24 19:28 07/03/24 20:00 Temperature 98.1 F 97.8 F Temperature Source Oral Pulse Rate 79 69 Respiratory Rate 26 H 17 Blood Pressure 113/66 133/74 H Blood Pressure Mean 81 93 Pulse Ox 94 93 Oxygen Delivery Method Nasal Cannula Oxygen Flow Rate (L/min) <Dr. Jose Jacinto DO - Last Filed: 07/03/24 21:52> Physical Exam Const Vital Signs: 07/03/24 14:04 07/03/24 14:11 07/03/24 14:19 Temperature 97.4 F L 97.4 F L Temperature Source Oral Oral Pulse Rate 64 64 Respiratory Rate 18 20 H 92 H Blood Pressure 132/65 H 132/65 H Blood Pressure Mean 87 87 Pulse Ox 87 87 Oxygen Delivery Method Room Air Room Air Nasal Cannula Oxygen Flow Rate (L/min) 4 07/03/24 14:58 07/03/24 15:48 07/03/24 16:11 Temperature 97.9 F Temperature Source Oral Pulse Rate 74 71 Respiratory Rate 15 16 Blood Pressure 141/80 H Blood Pressure Mean 100 Pulse Ox 97 97 Oxygen Delivery Method Nasal Cannula Nasal Cannula Oxygen Flow Rate (L/min) 4 4 07/03/24 17:00 07/03/24 18:00 07/03/24 19:00 Temperature 98.0 F 97.9 F 97.8 F Temperature Source Oral Oral Oral Pulse Rate 83 69 64 Respiratory Rate 20 H 19 H 18 Blood Pressure 123/83 H 117/64 113/63 Blood Pressure Mean 96 81 79 Pulse Ox 95 99 100 Oxygen Delivery Method Room Air Nasal Cannula Nasal Cannula Oxygen Flow Rate (L/min) 2 2 2 07/03/24 19:28 07/03/24 20:00 Temperature 98.1 F 97.8 F Temperature Source Oral Pulse Rate 79 69 Respiratory Rate 26 H 17 Blood Pressure 113/66 133/74 H Blood Pressure Mean 81 93 Pulse Ox 94 93 Oxygen Delivery Method Nasal Cannula Oxygen Flow Rate (L/min) MDM <JANETH Malone - Last Filed: 07/03/24 19:05> MDM MDM Narrative Medical decision making narrative: 68-year-old female presents with worsening shortness of breath. She states she has been dyspneic since having COVID in May. She appears well and nontoxic. She was 87% on room air and placed on 4 L O2. She is otherwise hemodynamically stable. Heart is regular and lungs are clear. CBC shows white count of 16.0 and Hgb of 15.3. BMP is unremarkable. EKG is sinus rhythm without ischemic changes and troponin x 2 is negative. D-dimer is negative. Patient had reported a few days ago having a bandlike pain under the rib cage so I added LFTs and lipase which are unremarkable. Since no clear etiology of her hypoxia was found I ordered a CTA which shows no PE, aneurysm or dissection. She has COPD. There is no significant infiltrate but there is slight debris and a few left lower lobe airways. In conjunction with her leukocytosis, lingering cough and hypoxia I treated for pneumonia with Rocephin and Zithromax. I will discuss the case with hospitalist for admission. Lab Data Attestation: I reviewed the patient's lab results. Labs: Laboratory Results - last 24 hr 07/03/24 07/03/24 07/03/24 14:45 15:15 17:00 WBC 16.0 H RBC 5.55 H Hgb 15.3 H Hct 48.2 H MCV 86.8 MCH 27.6 MCHC 31.7 L RDW Std Deviation 46.9 H RDW Coeff of Jonel 14.7 H Plt Count 288 MPV 9.5 Immature Gran % (Auto) 0.600 Neut % (Auto) 72.0 H Lymph % (Auto) 17.9 L [place] % (Auto) 7.2 Eos % (Auto) 1.7 Baso % (Auto) 0.6 Absolute Neuts (auto) 11.6 H Absolute Lymphs (auto) 2.86 Nucleated RBC % 0 Platelet Estimate A D-Dimer Quant (PE/DVT) Cancelled 0.28 Sodium 137 Potassium 3.9 Chloride 100 Carbon Dioxide 30.0 Anion Gap 7 BUN 12 Creatinine 0.80 Estim Creat Clear Calc 79.61 Est GFR (MDRD) Af Amer 92 Est GFR (MDRD) Non-Af 76 BUN/Creatinine Ratio 15.0 Glucose 66 L Calcium 10.0 Total Bilirubin 0.90 Direct Bilirubin 0.16 AST 40 H ALT 20 Alkaline Phosphatase 101 Troponin I High Sens 5 4 Total Protein 8.0 Albumin 3.7 Globulin 4.3 H Lipase 40 Radiography Diagnostic Testing: Clinical Impression(s) from Imaging Studies Chest X-Ray 07/03/24 15:35 IMPRESSION: Stable increased linear markings at the lung bases slightly worse on the left side suggestive of scarring. Electronically Signed: Nigel Fuller MD at 15:55 EST , Chest CTA 07/03/24 17:26 IMPRESSION: 1. No evidence of PE or aortic aneurysm or dissection. 2. COPD. No significant infiltrates or effusions. Likely slight debris in a few left lower lobe airways. RECOMMENDATIONS: Emphysema is an independent risk factor for lung neoplasm. Consider short-term yearly follow-up low dose CT lung cancer screening. Electronically Signed: Alexa Diego MD at 18:27 EST , <Dr. Jose Jacinto, DO - Last Filed: 07/03/24 21:52> [facility] Narrative Medical decision making narrative: 68-year-old female presents with worsening shortness of breath. She states she has been dyspneic since having COVID in May. She appears well and nontoxic. She was 87% on room air and placed on 4 L O2. She is otherwise hemodynamically stable. Heart is regular and lungs are clear. CBC shows white count of 16.0 and Hgb of 15.3. BMP is unremarkable. EKG is sinus rhythm without ischemic changes and troponin x 2 is negative. D-dimer is negative. Patient had reported a few days ago having a bandlike pain under the rib cage so I added LFTs and lipase which are unremarkable. Since no clear etiology of her hypoxia was found I ordered a CTA which shows no PE, aneurysm or dissection. She has COPD. There is no significant infiltrate but there is slight debris and a few left lower lobe airways. In conjunction with her leukocytosis, lingering cough and hypoxia I treated for pneumonia with Rocephin and Zithromax. I will discuss the case with hospitalist for admission. ED attending note: I evaluated the patient in conjunction with the DEANNA. I agree with his/her statements and above findings. I have personally performed a face to face assessment of the patient and have reviewed the DEANNA Note. I performed a substantive portion of the visit including all aspects of the following. I personally saw the patient performed chart review, physical exam, reviewed labs, imaging (if obtained), and formulated a treatment and management plan. This note was generated with [employer] dictation software. It may contain incorrect words, spelling, and punctuation that were not noted in review of the chart prior to signing. Lab Data Labs: Laboratory Results - last 24 hr 07/03/24 07/03/24 07/03/24 14:45 15:15 17:00 WBC 16.0 H RBC 5.55 H Hgb 15.3 H Hct 48.2 H MCV 86.8 MCH 27.6 MCHC 31.7 L RDW Std Deviation 46.9 H RDW Coeff of Jonel 14.7 H Plt Count 288 MPV 9.5 Immature Gran % (Auto) 0.600 Neut % (Auto) 72.0 H Lymph % (Auto) 17.9 L [place] % (Auto) 7.2 Eos % (Auto) 1.7 Baso % (Auto) 0.6 Absolute Neuts (auto) 11.6 H Absolute Lymphs (auto) 2.86 Nucleated RBC % 0 Platelet Estimate A D-Dimer Quant (PE/DVT) Cancelled 0.28 Sodium 137 Potassium 3.9 Chloride 100 Carbon Dioxide 30.0 Anion Gap 7 BUN 12 Creatinine 0.80 Estim Creat Clear Calc 79.61 Est GFR (MDRD) Af Amer 92 Est GFR (MDRD) Non-Af 76 BUN/Creatinine Ratio 15.0 Glucose 66 L Calcium 10.0 Total Bilirubin 0.90 Direct Bilirubin 0.16 AST 40 H ALT 20 Alkaline Phosphatase 101 Troponin I High Sens 5 4 Total Protein 8.0 Albumin 3.7 Globulin 4.3 H Lipase 40 Radiography Diagnostic Testing: Clinical Impression(s) from Imaging Studies Chest X-Ray 07/03/24 15:35 IMPRESSION: Stable increased linear markings at the lung bases slightly worse on the left side suggestive of scarring. Electronically Signed: Nigel Fuller MD at 15:55 EST , Chest CTA 07/03/24 17:26 IMPRESSION: 1. No evidence of PE or aortic aneurysm or dissection. 2. COPD. No significant infiltrates or effusions. Likely slight debris in a few left lower lobe airways. RECOMMENDATIONS: Emphysema is an independent risk factor for lung neoplasm. Consider short-term yearly follow-up low dose CT lung cancer screening. Electronically Signed: Alexa Diego MD at 18:27 EST , Discharge Plan Dx/Rx/DC Orders Clinical Impression: Hypoxia, History of COPD, Pneumonia Disposition Disposition: Acute Care Hospital [facility] Discharge Date/Time: 07/03/24 21:45
[2024-07-03 14:57] LABS: Absolute Lymphocyte Count 2.86 X10^3/uL (0.83-4.51); Absolute Neutrophil Count 11.6 X10^3/uL (2.0-7.7); Basophil# 0.09 X10^3/uL; Basophil% 0.6 % (0-1); Eosinophil# 0.27 X10^3/uL; Eosinophils% 1.7 % (0-5); Hematocrit 48.2 % (37-47); Hemoglobin 15.3 g/dL (12.0-15.0); Lymphocyte # 2.86 X10^3/ul (0.83-4.51); Lymphocyte % 17.9 % (19-41); Mean Corp Hgb Conc 31.7 g/dL (32-36); Mean Corpuscular Hgb 27.6 pg (27.0-32.0); Mean Corpuscular Volume 86.8 fL (81-99); Mean Platelet Vol. 9.5 fl (6.2-12.0); Monocyte# 1.16 X10^3/uL; Monocyte% 7.2 % (0-10); NRBC Flagged by Analyzer 0 % (0-5); Neutrophil # 11.55 X10^3/uL (2.7-7.7); POSITIVE COUNT YES; Platelet Count 288 K/mm3 (150-450); RBC Distribution Width CV 14.7 % (11.6-14.6); RBC Distribution Width SD 46.9 fl (35.1-43.9); Red Blood Count 5.55 M/mm3 (4.2-5.4)
[2024-07-03 15:03] LABS: Differential Indicated SCAN CRITERIA MET
[2024-07-03 15:17] LABS: Anion Gap 7 (5-15); BUN 12 mg/dL (7-18); Chloride 100 mmol/L (98-107); EST Glomerular Filtration Rate 76 mL/min (>60); Est Glom Filt Rate - Afr Amer 92 mL/min (>60); Estimated Creatinine Clearance 79.61 ml/min; Glucose 66 mg/dL (74-106); Potassium 3.9 mmol/L (3.5-5.1); Sodium Level 137 mmol/L (136-145); Troponin-I HS (w/2H Reflex) 5 pg/mL (3.0-54.0)
[2024-07-03 15:21] LABS: Platelet Estimate A (ADEQ)
--- NOTE | 2024-07-03 15:35 | RAD_ITS ---
STUDY: X-RAY CHEST REASON FOR EXAM: Female, 68 years old. Chest pain TECHNIQUE: Single AP portable view of the chest. COMPARISON: Comparison is made with prior study dated January 05, 2023. FINDINGS: EKG electrodes are seen. Stable mild increased markings at the lung bases slightly worse on the left side suggests some bibasilar scarring. Stable blunting of the left costophrenic angle. Normal size heart. Normal mediastinum and abigail. Normal visualized pulmonary arteries. There is atherosclerotic tortuosity of the aortic arch and descending thoracic aorta. There are diffuse degenerative changes of the visualized thoracic spine. Prior fusion of the lower cervical spine. There is no demonstrated abnormality of the visualized soft tissue structures of the upper abdomen. RAD/Chest 1 View (Portable) IMPRESSION: Stable increased linear markings at the lung bases slightly worse on the left side suggestive of scarring. Electronically Signed: Nigel Fuller MD at 15:55 EST ,
[2024-07-03 16:01] LABS: D-Dimer Quantitative (DVT/PE) 0.28 FEU/ug/m (0.27-0.49)
[2024-07-03 16:46] LABS: AST(SGOT) 40 U/L (15-37); Alanine Aminotransfer ALT/SGPT 20 U/L (13-56); Albumin, Serum 3.7 g/dL (3.2-5.0); Alkaline Phosphatase 101 U/L (45-117); Bilirubin, Direct 0.16 mg/dL (0.00-0.30); Globulin 4.3 g/dL (2.2-4.2); Lipase 40 U/L (13-75)
[2024-07-03 16:49] LABS: Reflex Troponin-HS? (from REC) Y
[2024-07-03] MEDS: Orphenadrine 100 MG Tablet PO (17:20)
--- NOTE | 2024-07-03 17:26 | CT_ITS ---
EXAM: CT ANGIOGRAPHY CHEST WITHOUT AND WITH INTRAVENOUS CONTRAST CLINICAL INDICATION: hypoxia, chest pain TECHNIQUE: Helically acquired angiography images were obtained of the chest without and with intravenous contrast. This CT exam was performed using one or more of the following dose reduction techniques: automated exposure control, adjustment of the mA and/or kV according to patient size, and/or use of iterative reconstruction technique. MIP reconstructed images were created and reviewed. CONTRAST: IV 100mL [id number] RADIATION DOSE: CTDIvol = 20.72 mGy, DLP = 513.04 mGy-cm COMPARISON: August 11, 2016 FINDINGS: PULMONARY ARTERIES: Unremarkable. Normal in caliber. No evidence of pulmonary embolism. No evidence of PE. AORTA: Unremarkable. Normal in caliber. No evidence of dissection. GREAT VESSELS OF AORTIC ARCH: Unremarkable. Normal in caliber. No evidence of dissection. LUNGS AND PLEURAL SPACES: There are emphysematous changes in the lung apices and peripheral cystic changes especially in the posterior right lower lobe. Multiple mild linear bands of atelectasis or scarring in the anterior lower lung doe. No mass. No pleural effusion or thickening. No pneumothorax. HEART: Marked calcification in the left coronary artery and mild calcifications in the bilateral coronary artery branches, suspected stents in right coronary artery. No intracardiac filling defect. Heart size is normal. No pericardial effusion. MEDIASTINUM: Unremarkable. No mediastinal or hilar adenopathy. Esophagus is unremarkable. No hiatal hernia. THYROID: Unremarkable. No thyroid lesions. BONES/JOINTS: Postoperative change of the lower cervical spine is not fully included. Degenerative thoracic spine changes mild spondylosis and several vacuum disc, similar to prior exam. No suspicious lytic or blastic abnormality. SOFT TISSUES: There are new fairly coarse calcifications deep to the left nipple and an ovoid configuration, overall size of the cluster of coarse calcifications roughly 8 mm. LYMPH NODES: Stable hilar structures and similar scattered mesenteric lymph nodes, not necessarily pathologic by size criteria. PANCREAS: Most of the abdomen is not included. Most of the pancreas, liver, region of the gallbladder are not included. Small adrenals are included. CT/CTA Chest W/WO Contrast IMPRESSION: 1. No evidence of PE or aortic aneurysm or dissection. 2. COPD. No significant infiltrates or effusions. Likely slight debris in a few left lower lobe airways. RECOMMENDATIONS: Emphysema is an independent risk factor for lung neoplasm. Consider short-term yearly follow-up low dose CT lung cancer screening. Electronically Signed: Alexa Diego MD at 18:27 EST ,
[2024-07-03 17:49] LABS: Troponin-I HS 4 pg/mL (3.0-54.0)
[2024-07-03] MEDS: Ceftriaxone 1 GM/50 ML BAG IV (19:27)
--- NOTE | 2024-07-03 19:27 | PCM.HP.STD ---
HPI - General General Date of Admission: 07/03/24 Date of Service: 07/03/24 Chief Complaint: Chest Pain, SOB and Wheezing. HPI Narrative This patient is a 68-year-old female with a past medical history of essential hypertension; on metoprolol and hydrochlorothiazide, hyperlipidemia; on ezetimibe, hypothyroidism; on levothyroxine, overweight; with a BMI of 28.5 this admission, DM-2; of unknown control on metformin, glipizide and semaglutide, diabetic neuropathy, CAD; s/p NSTEMI with subsequent RCA stent (2022) on BASA and clopidogrel, history of cardiomyopathy, former history of tobacco abuse (quit ~16 years ago); with subsequent COPD, history of iron deficiency anemia, depression; on duloxetine, GERD; history of Anna's esophagus on pantoprazole, OA; with history of chronic neck/back pain and intermittent muscle spasms and recently diagnosed COVID-19 in late May 2024 with subsequent persistent lingering cough and unimproved shortness of breath with severe fatigue consistent with her PCP suspecting Long-COVID who presents to [facility] ER complaining of chest pain, shortness of breath and wheezing. Ms. Henderson reports her acute symptoms began ~2-3 days prior to admission with a notable increase in her dyspnea on exertion as she began to feel short of breath at rest. She also admits to chest pain that was Left-sided, sharp, pinching, nonradiating, [id number] and only lasting a few seconds each occurrence but happening ~3 times per day so she finally decided to come in for further evaluation and treatment. There is no report of associated fever, chills, nausea, vomiting, diarrhea, abdominal pain, sore throat or headache but she does admit to increasingly severe wheezing plus rhinorrhea and fatigue. In the ER she was noted to have a CTA of the chest which was negative for PE but did reveal slight debris in the airways of her Left lower lobe concerning for possible early Pneumonia with a corresponding Leukocytosis of 16K present on admission complicated by clinical evidence of AE COPD in the setting of recently diagnosed COVID-19 and subsequent persistent shortness of breath, fatigue and cough due to suspected Long-COVID with corresponding clinical evidence of Acute Respiratory Insufficiency with the patient requiring initiation of 2L NC compounded by laboratory evidence of Hypoglycemia of 66 mg/dL present on admission likely due to Adverse Drug Reaction to glipizide along with Atypical Chest Pain; with a nonspecific EKG and 2 normal troponins in ER and she was then admitted to the PCU for ongoing care for status expected to extend beyond 2 midnights. [facility] Medical History Contusion of right hand Myopic degeneration Costochondritis Diabetic neuropathy Tear of meniscus of left knee Tear of meniscus of right knee Fatigue Coronary artery disease Atherosclerosis of coronary artery of [place] heart without angina pectoris Dyslipidemia Barretts esophagus Anemia Fibromyalgia COPD (chronic obstructive pulmonary disease) Former smoker Hypertension Chronic pain Hyperthyroidism Diabetes NSTEMI, initial episode of care History of diabetes mellitus Home Medications ?Medication ?Instructions ?Recorded ?Last Taken ?Type duloxetine 30 mg capsule,delayed 30 mg PO BID depression 08/11/16 Unknown History release pramipexole 0.5 mg tablet (Mirapex) 0.5 mg PO QHS 08/11/16 Unknown History metformin 1,000 mg tablet 1,000 mg PO BID 01/05/23 Unknown History aspirin 81 mg chewable tablet 81 mg PO DAILY@0800 #30 tabs 01/09/23 Unknown Rx pantoprazole 40 mg tablet,delayed 40 mg PO DAILY 02/07/23 Unknown History release ezetimibe 10 mg tablet 10 mg PO DAILY #30 tabs 06/08/23 Unknown Rx semaglutide 1 mg/dose (4 mg/3 mL) 2 mg subcut QWEEK 12/06/23 Unknown History subcutaneous pen injector (Ozempic) metoprolol tartrate 25 mg tablet 25 mg PO BID #180 tabs 03/11/24 Unknown Rx clopidogrel 75 mg tablet 75 mg PO DAILY #90 tabs 04/07/24 Unknown Rx hydrochlorothiazide 25 mg tablet 25 mg PO DAILY #90 tabs 04/09/24 Unknown Rx B-complex with vitamin C 1 cap PO QDAY 05/07/24 Unknown History ascorbic acid (vitamin C) 1,000 mg 1 g PO QDAY 05/07/24 Unknown History tablet cholecalciferol (vitamin D3) 50 50 mcg PO QDAY 05/07/24 Unknown History mcg (2,000 unit) capsule d-mannose 500 mg capsule (AZO 1,300 mg PO QDAY 05/07/24 Unknown History D-Mannose) ferrous sulfate 325 mg (65 mg 325 mg PO QDAY 05/07/24 Unknown History iron) tablet fluticasone propionate 50 1 spray intranasal QDAY 05/07/24 Unknown History mcg/actuation nasal spray,suspension (Flonase Allergy Relief) lactobacillus combination no.4 3 3,000 mmu cells PO QDAY 05/07/24 Unknown History billion cell capsule (Probiotic) magnesium 250 mg tablet 250 mg PO QDAY 05/07/24 Unknown History glipizide 5 mg tablet 5 mg PO BID 07/03/24 Unknown History levothyroxine 112 mcg tablet 112 mcg PO DAILY 07/03/24 Unknown History Allergy/AdvReac Type Severity Reaction Status Date / Time Latex, Natural Rubber Allergy Severe rash Verified 07/03/24 14:11 nitrofurantoin Allergy NEEDS Verified 07/03/24 14:11 FOLLOW-UP clarithromycin (From Biaxin) AdvReac Other Verified 07/03/24 14:11 moexipril (From Univasc) AdvReac Other Verified 07/03/24 14:11 sulfamethoxazole (From AdvReac Other Verified 07/03/24 14:11 Bactrim) trimethoprim (From Bactrim) AdvReac Other Verified 07/03/24 14:11 Family History Father S/P CABG x 3 Congestive heart failure Mother Psoriasis Rheumatoid arthritis COPD (chronic obstructive pulmonary disease) Hepatitis C Lung nodules Surgical History History of total left knee replacement History of dilatation and curettage History of neck surgery History of shoulder surgery H/O bilateral breast reduction surgery History of appendectomy Hx of right coronary artery stent placement (~01/08/23) Social History Smoking Status: Former smoker alcohol intake: current alcohol intake frequency: holidays/special occasions only substance use type: does not use caffeine: Yes Type: tea Number of servings: 2 ROS ROS Narrative Review of Systems: Constitutional: Patient admits to fatigue bu she denies fever or chills. Eyes: Patient denies changes in vision or discharge from eyes. ENT: Patient admits to rhinorrhea but she denies sore throat or ear pain. Resp: Patient admits to persistent SOB and cough since recently being diagnosed with COVID-19 ~2 weeks ago as per HPI. CV: Patient admits to episodic, intermittent, atypical Left-sided chest pain as per HPI but she denies palpitations or heart racing. GI: Patient denies abdominal pain, nausea, vomiting, diarrhea or constipation. : Patient denies dysuria or hematuria. MSK: Patient has chronic diffuse muscle pain with intermittent muscle spasms. Skin: Patient denies rash, abscess or jaundice. Psych: Patient denies symptoms of uncontrolled depression or anxiety. Neuro: Patient denies headache, paresthesias or focal neurologic deficits. Allergy: Patient denies lip swelling, tongue swelling or urticaria. Hematology: Patient denies easy bleeding or easy bruisability. Endocrinology: Patient denies polyuria, polydipsia or polyphagia. 14 point ROS otherwise negative except for positives noted above in HPI. Vital Signs Vital Signs Vital Signs: 07/03/24 14:04 07/03/24 14:11 07/03/24 14:19 Temperature 97.4 F L 97.4 F L Temperature Source Oral Oral Pulse Rate 64 64 Respiratory Rate 18 20 H 92 H Blood Pressure 132/65 H 132/65 H Blood Pressure Mean 87 87 Pulse Ox 87 87 Oxygen Delivery Method Room Air Room Air Nasal Cannula Oxygen Flow Rate (L/min) 4 07/03/24 14:58 07/03/24 15:48 07/03/24 16:11 Temperature 97.9 F Temperature Source Oral Pulse Rate 74 71 Respiratory Rate 15 16 Blood Pressure 141/80 H Blood Pressure Mean 100 Pulse Ox 97 97 Oxygen Delivery Method Nasal Cannula Nasal Cannula Oxygen Flow Rate (L/min) 4 4 07/03/24 17:00 07/03/24 18:00 07/03/24 19:00 Temperature 98.0 F 97.9 F 97.8 F Temperature Source Oral Oral Oral Pulse Rate 83 69 64 Respiratory Rate 20 H 19 H 18 Blood Pressure 123/83 H 117/64 113/63 Blood Pressure Mean 96 81 79 Pulse Ox 95 99 100 Oxygen Delivery Method Room Air Nasal Cannula Nasal Cannula Oxygen Flow Rate (L/min) 2 2 2 Weight Weight: 190 lb 7.67 oz Body Mass Index (BMI) 28.5 Physical Exam Const alert, oriented x3 and no apparent distress General Appearance: cooperative HEENT normocephalic, head/scalp atraumatic, hearing grossly normal bilaterally and moist oral mucous membranes Eyes PERRL and EOMs intact bilaterally Neck no lymphadenopathy and supple Resp no use of accessory muscles Resp Narrative: Diminished breath sounds throughout. Cardio regular rate and regular rhythm GI normal to inspection, nondistended, normoactive bowel sounds, soft to palpation, non-tender and non-distended Extremity normal to inspection, full ROM and no clubbing, cyanosis or edema Skin Skin Narrative: Patient has no evidence of rash, abscess or jaundice. Neuro oriented x3, CN's II-XII intact bilaterally, moves all extremities and no focal motor deficits Sensorium / Orientation: awake, alert, oriented to person, oriented to place and oriented to time Speech: speech normal Psych affect normal Results Medical Records Data Attestation: I reviewed the patient's medical records Lab / Micro Data Attestation: I reviewed the patient's lab results. 07/03/24 14:45 07/03/24 14:45 Labs: Laboratory Results - last 24 hr 07/03/24 14:45: WBC 16.0 H, RBC 5.55 H, Hgb 15.3 H, Hct 48.2 H, MCV 86.8, MCH 27.6, MCHC 31.7 L, RDW Std Deviation 46.9 H, RDW Coeff of Jonel 14.7 H, Plt Count 288, MPV 9.5, Immature Gran % (Auto) 0.600, Neut % (Auto) 72.0 H, Lymph % (Auto) 17.9 L, Evangeline % (Auto) 7.2, Eos % (Auto) 1.7, Baso % (Auto) 0.6, Absolute Neuts (auto) 11.6 H, Absolute Lymphs (auto) 2.86, Nucleated RBC % 0, Platelet Estimate A, D-Dimer Quant (PE/DVT) Cancelled, Sodium 137, Potassium 3.9, Chloride 100, Carbon Dioxide 30.0, Anion Gap 7, BUN 12, Creatinine 0.80, Estim Creat Clear Calc 79.61, Est GFR (MDRD) Af Amer 92, Est GFR (MDRD) Non-Af 76, BUN/Creatinine Ratio 15.0, Glucose 66 L, Calcium 10.0, Total Bilirubin 0.90, Direct Bilirubin 0.16, AST 40 H, ALT 20, Alkaline Phosphatase 101, Troponin I High Sens 5, Total Protein 8.0, Albumin 3.7, Globulin 4.3 H, Lipase 40 07/03/24 15:15: D-Dimer Quant (PE/DVT) 0.28 07/03/24 17:00: Troponin I High Sens 4 Micro: Microbiology 07/03/24 14:50 Mucosa - Nose SARS-CoV-2, Influenza & RSV (PCR) - Final Imaging Radiology Impression Chest X-Ray 07/03/24 15:35 IMPRESSION: Stable increased linear markings at the lung bases slightly worse on the left side suggestive of scarring. Electronically Signed: Nigel Fuller MD at 15:55 EST , Chest CTA 07/03/24 17:26 IMPRESSION: 1. No evidence of PE or aortic aneurysm or dissection. 2. COPD. No significant infiltrates or effusions. Likely slight debris in a few left lower lobe airways. RECOMMENDATIONS: Emphysema is an independent risk factor for lung neoplasm. Consider short-term yearly follow-up low dose CT lung cancer screening. Electronically Signed: Alexa Diego MD at 18:27 EST , Assessment & Plan Assessment/Plan (1) Pneumonia: QUALIFIERS: Laterality: left Lung location: lower lobe of lung Pneumonia type: due to unspecified organism Qualified Code(s): J18.9 - Pneumonia, unspecified organism (2) COPD with exacerbation: (3) Respiratory insufficiency: (4) Long COVID: (5) Chest pain: QUALIFIERS: Chest pain type: unspecified Qualified Code(s): R07.9 - Chest pain, unspecified (6) Hypoglycemia: (7) Adverse drug reaction: QUALIFIERS: Encounter type: initial encounter Qualified Code(s): T50.905A - Adverse effect of unspecified drugs, medicaments and biological substances, initial encounter (8) Diabetes mellitus type 2 with complications, uncontrolled: (9) Coronary artery disease: QUALIFIERS: Associated angina: with unspecified form of angina Coronary Disease-Associated Artery/Lesion type: [place] artery [place] vs. transplanted heart: cherokee heart Qualified Code(s): I25.119 - Atherosclerotic heart disease of cherokee coronary artery with unspecified angina pectoris (10) Hx of right coronary artery stent placement: (11) Cardiomyopathy: QUALIFIERS: Cardiomyopathy type: unspecified Qualified Code(s): I42.9 - Cardiomyopathy, unspecified (12) Overweight (BMI 25.0-29.9): PLAN: Plan 1. CTA of the chest which was negative for PE but did reveal slight debris and the airways of her Left lower lobe concerning for possible early Pneumonia with a corresponding Leukocytosis of 16K present on admission complicated by clinical evidence of AE COPD - Admit to PCU. Continue empiric IV Rocephin and IV azithromycin begun in the ER. Start low-dose Solu-Medrol IV twice daily for suspected mild AE COPD. Continue scheduled and as needed nebulizers and inhalers. Check extended viral respiratory panel with patient having rhinorrhea, fatigue and worsening shortness of breath. Give acetaminophen as needed for [id number] (level 1-5/10) pain or fever. Give [place] as needed for severe (level 6-10/10) pain. 2. Recently diagnosed COVID-19 and subsequent persistent shortness of breath, fatigue and cough due to suspected Long-COVID complicated by clinical evidence of Acute Respiratory Insufficiency with the patient requiring initiation of 2L NC complicating #1 - Resume supplemental vitamin D3 and vitamin C plus add zinc. Wean supplemental oxygen as tolerated. 3. Atypical Chest Pain in the setting of known previous costochondritis compounding #1 & #2 - Serialize troponin. Check Lexiscan chemical NST in the a.m. Check echocardiogram to evaluate LVEF. 4. DM-2; uncontrolled with Hypoglycemia of 66 mg/dL present on admission likely due to Adverse Drug Reaction to glipizide adding to the medical complexity of #1 - #3 in the setting of known diabetic neuropathy - Hold all of her diabetic medications at this time. Start IV fluid with D5 normal saline with 20 meq KCl at 70 cc/hr x 1 L and then reassess. FSBS q. AC/HS plus SSI of lowest intensity. Repeat blood glucose shows improvement to 128 mg/dL. Check hemoglobin A1c to objectively assess quality of diabetic control. 5. History of former history of Tobacco Abuse; with subsequent COPD adding to the burden of disease outlined from #1 - #4 - Noted with patient on IV Solu-Medrol plus scheduled and as needed nebulizers. 6. CAD; s/p NSTEMI with subsequent RCA stent (2022) on BASA and clopidogrel - Maintain on BASA and clopidogrel as previous. 7. History of Cardiomyopathy - Echocardiogram pending for #3 to reassess status. 8. Essential Hypertension; on metoprolol and hydrochlorothiazide - Continue home regimen and give as needed hydralazine IV for systolic blood pressure greater than 160 mmHg. 9. Hyperlipidemia; on ezetimibe - Resume ezetimibe and check lipid profile this admission. 10. Hypothyroidism; on levothyroxine - Continue current dose of levothyroxine and check TSH this admission. 11. Overweight; with a BMI of 28.5 this admission - Weight loss will be recommended. 12. History of iron deficiency anemia - Stable with hemoglobin of 15.3 g/dL and MCV of 86.8 fL present on admission. 13. Depression; on duloxetine - Resume duloxetine as before. 14. GERD; history of Anna's esophagus on pantoprazole - Continue pantoprazole as previous. 15. OA; with history of chronic neck/back pain and intermittent muscle spasms - Give acetaminophen as needed for pain and tizanidine as needed for muscle spasms. 16. DVT prophylaxis - Lovenox 40 mg sq daily plus SCD's. Total time: Approximately (but not less than) 75 minutes. Charges/Coding Visit Charges Inpatient E&M: 82034 Init Hosp L3
[2024-07-03] MEDS: Azithromycin 500 MG in 0.9% Normal Saline (250mL Bag) 250 ML 250 MG IV (20:20)
[2024-07-03] MEDS: DULoxetine Hcl 30 MG Capsule PO (22:33)
[2024-07-03] MEDS: Metoprolol Tartrate 25 MG Tablet PO (22:33)
[2024-07-03] MEDS: Pramipexole Di-HCl 0.5 MG Tablet PO (22:34)
[2024-07-03] MEDS: 0.9% Saline Lock 10 ML Syringe IV (22:34)
[2024-07-03 22:58] LABS: Bedside Glucose 128 mg/dL (74-106)
[2024-07-03 23:04] LABS: Hemoglobin A1c 6.2 % (3.8-5.6)
[2024-07-03 23:44] LABS: Mucous, Urine 0 SEEN /hpf (<or=2+); Red Blood Cells-Urine 0 SEEN /hpf (0-5)
[2024-07-03] MEDS: KCl 20MEQ in D5NS 20 MEQ/1,000 ML IV.SOLN. 70 MEQ IV (23:46)
[2024-07-03 23:47] LABS: Color, Urine Straw (Yellow); Glucose, Dipstick Normal (Normal); Ketone-Dipstick Negative (Negative); Leukocyte Esterase-Dipstick Negative /ul (Negative); Nitrite-Dipstick Negative (Negative); Occult Blood-Urine Negative /ul (Negative); Protein-Dipstick Negative (Negative); Specific Gravity, Urine 1.005 (1.002-1.030); Urine Bilirubin Dipstick Negative (Negative); Urine Clarity Clear (Clear); Urine Urobilinogen Normal (Normal)
[2024-07-03 23:57] LABS: Bacteria 1+ /hpf (None Seen); Squamous Epithelial Cells - UA 5-10 SEEN /hpf (5-10); White Blood Cells 0-5 SEEN /hpf (0-5)
[2024-07-04 02:03] LABS: Troponin-I HS 5 pg/mL (3.0-54.0)
[2024-07-04 04:00] VITALS: BP 122/62; PULSE 90; RESP 16; TEMP 36.3; O2SAT 92
[2024-07-04 05:00] VITALS: BMI 31.4
[2024-07-04 06:22] VITALS: BP 121/67; PULSE 77; RESP 18; TEMP 36.5; O2SAT 97
[2024-07-04] MEDS: Levothyroxine 112 MCG Tablet PO (06:24)
[2024-07-04] MEDS: Clopidogrel Bisulfate 75 MG Tablet PO (06:24)
[2024-07-04] MEDS: Aspirin 81 MG TAB.CHEW PO (06:24)
[2024-07-04] MEDS: Acetaminophen 325 MG Tablet 650 MG PO (06:31)
[2024-07-04 07:07] LABS: Bedside Glucose 239 mg/dL (74-106)
--- NOTE | 2024-07-04 09:25 | STRESSREP_ITS ---
Stress Test Report Date: 07/04/2024 Procedure: Pharmacologic stress nuclear imaging study Indications: Chest pain Consent: Per the patient Procedure: The patient underwent pharmacologic (Regadenoson 0.4mg ) evaluation with a peak heart rate of 115 beats per minute (74%predicted maximal heart rate) and a peak blood pressure of 130/60 mmHg. The baseline ECG demonstrated sinus rhythm with nonspecific ST changes. The peak pharmacologic ECG demonstrated no diagnostic ischemic changes. There were no cardiac dysrhythmias pretest, during pharmacologic infusion, or recovery. There was no complaint of chest discomfort during pharmacologic infusion or recovery. The patient was injected with 15.0 millicuries of technetium 99m Cardiolite and subsequently rest SPECT Cardiolite nuclear imaging was obtained in the horizontal long, vertical long, and short axis views. The patient underwent pharmacologic (Regadenoson) evaluation. The patient was injected with 44.8 millicuries of technetium 99m Cardiolite and subsequently stress SPECT Cardiolite nuclear imaging was obtained in the horizontal long, vertical long, and short axis views. A gated Cardiolite study at peak stress was obtained. The examination was stopped secondary to completion of protocol. Rest and stress SPECT Cardiolite nuclear imaging status post realignment, normalization, and attenuation correction demonstrate no fixed or reversible perfusion defects. There is end systolic thickening and brightening. The gated Cardiolite study demonstrates myocardial thickening and inward wall motion. The reported LVEF is 68%. Impression: 1. Pharmacologic (Regadenoson) evaluation 2. Peak pharmacologic ECG with no diagnostic ischemic changes. 3. There were no cardiac dysrhythmias pretest, during pharmacologic infusion, or recovery. 5. Rest and stress SPECT Cardiolite nuclear imaging demonstrate relative uniform tracer uptake and myocardial perfusion appearing within normal limits. 6. The gated Cardiolite study reports an LVEF of 68%. This note was generated with [employer] software. It may contain incorrect words, spelling, and punctuation that were not noted in checking the note before signing.
[2024-07-04 09:30] VITALS: BP 123/67; PULSE 84; RESP 16; TEMP 36.9; O2SAT 95
[2024-07-04 09:32] VITALS: BP 123/67; PULSE 84
[2024-07-04] MEDS: hydroCHLOROthiazide 25 MG Tablet PO (09:32)
[2024-07-04] MEDS: Metoprolol Tartrate 25 MG Tablet PO (09:32)
[2024-07-04] MEDS: HYDROcodone Bitartrate/Apap 5/325 Tablet PO (09:41)
[2024-07-04 10:44] LABS: Absolute Lymphocyte Count 0.89 X10^3/uL (0.83-4.51); Absolute Neutrophil Count 10.4 X10^3/uL (2.0-7.7); Basophil# 0.02 X10^3/uL; Basophil% 0.2 % (0-1); Hematocrit 44.1 % (37-47); Hemoglobin 14.1 g/dL (12.0-15.0); Lymphocyte # 0.89 X10^3/ul (0.83-4.51); Lymphocyte % 7.6 % (19-41); Mean Corpuscular Hgb 27.6 pg (27.0-32.0); Mean Corpuscular Volume 86.3 fL (81-99); Mean Platelet Vol. 9.1 fl (6.2-12.0); Monocyte# 0.26 X10^3/uL; Monocyte% 2.2 % (0-10); NRBC Flagged by Analyzer 0 % (0-5); Neutrophil # 10.44 X10^3/uL (2.7-7.7); Neutrophil % 89.2 % (47-70); Platelet Count 287 K/mm3 (150-450); RBC Distribution Width CV 14.6 % (11.6-14.6); RBC Distribution Width SD 46.2 fl (35.1-43.9); Red Blood Count 5.11 M/mm3 (4.2-5.4); White Blood Count 11.7 K/mm3 (4.4-11.0)
--- NOTE | 2024-07-04 11:20 | CASEMGMT ---
RN LOUISE Face to Face with patient for initial transition planning/care coordination assessment. RN CM introduced self and role at [facility]. Patient lying in bed, alert and oriented, at bedside. Patient willing to participate in assessment and is able to answer all questions appropriately. Care providers, pharmacy, and demographics verified. 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 Patient was independent at home. Transportation: self, DME/HHC: Patient has shower chair, walker, pulse ox, and glucometer at home. Will monitor for home oxygen, prefers [employer]. No previous HHC or SNF Patient wishes to discharge home, denies need for home health at this time. Patient states she has no further needs or concerns at this time. CM to follow for discharge planning needs that may arise. Disposition Plan: Patient to discharge home with family support and follow-up plans in place. Will monitor for home oxygen. Seda OROURKE, RN, CM
[2024-07-04 11:33] LABS: Phosphorus 2.8 mg/dL (2.5-4.9)
[2024-07-04 11:39] LABS: ALB/GLOB Ratio 0.9 RATIO (0.9-2.4); AST(SGOT) 21 U/L (15-37); Alanine Aminotransfer ALT/SGPT 19 U/L (13-56); Albumin, Serum 3.6 g/dL (3.2-5.0); Alkaline Phosphatase 92 U/L (45-117); Anion Gap 5 (5-15); BUN 10 mg/dL (7-18); BUN/Creat Ratio 11.2 RATIO (10-20); Calcium,Total 9.6 mg/dL (8.5-10.1); Chloride 100 mmol/L (98-107); Cholesterol 199 mg/dL (200); Creatinine, Serum 0.89 mg/dL (0.55-1.02); EST Glomerular Filtration Rate 67 mL/min (>60); Est Glom Filt Rate - Afr Amer 81 mL/min (>60); Estimated Creatinine Clearance 74.42 ml/min; Globulin 4.2 g/dL (2.2-4.2); Glucose 242 mg/dL (74-106); High Density Lipoprotein 81 mg/dL; Magnesium 1.7 mg/dL (1.6-2.6); Potassium 4.2 mmol/L (3.5-5.1); Protein, Total 7.8 g/dL (6.4-8.2); Sodium Level 133 mmol/L (136-145); Triglycerides 107 mg/dL; Very Low Density Lipoprotein 21 mg/dL (5-40)
[2024-07-04 11:56] VITALS: O2SAT 84; O2SAT 87; O2SAT 92; O2SAT 93
--- NOTE | 2024-07-04 12:09 | PCM.DC ---
Discharge Instructions Diet Discharge Diet: Low fat / Low cholesterol and Carb Control Diet DC O2, CPAP, BIPAP needs RN Home O2 Qualification: Home O2 Qualification: Is the patient on home oxygen No 07/04/24 11:56 Home O2 Qualification: AT REST 1- Pulse Ox at rest 93 07/04/24 11:56 Home O2 Qualification: WITH AMBULATION 1- Pulse Ox with ambulation 84 07/04/24 11:56 1- Oxygen Flow Rate with 0 07/04/24 11:56 ambulation 2- Pulse Ox with ambulation 87 07/04/24 11:56 2- Oxygen Flow Rate with 2 07/04/24 11:56 ambulation 3- Pulse Ox with ambulation 92 07/04/24 11:56 3- Oxygen Flow Rate with 3 07/04/24 11:56 ambulation Home O2 Discharge instructions: No Dressing / Incision Discharge Activity: Return to Normal Activity Dressing / Incision Call your doctor if you observe: Fever of 101 or Higher, Shortness of breath, Dizziness, Fainting spells, Swelling in the ankles, Chest pain and Increased palpitations (irregular heartbeat) Follow Up Care Test Results: Test results from this visit will be discussed in further detail at your follow-up appointment, if applicable. Discharge Plan Admission Admit Date/Time: 07/03/24 20:19 Attending Provider: Solomon Osborne Primary Care Provider: Ruth Saunders NP Consulting Providers: Rj Barnhart Instructions Patient Instructions: COPD Diabetes, Chronic Lung Disease Avoid These Additional Instructions / Restrictions: 3L NC with activity Discharge Orders/Prescriptions Prescriptions: New cefdinir 300 mg capsule 300 mg PO BID Qty: 14 0RF azithromycin 500 mg tablet 500 mg PO DAILY 3 Days Qty: 3 0RF prednisone 20 mg tablet 40 mg PO DAILY Qty: 14 0RF albuterol sulfate 90 mcg/actuation HFA aerosol inhaler 1 puff inhalation Q6H PRN (Reason: shortness of breath or wheezing) Qty: 6.7 0RF Continued pantoprazole 40 mg tablet,delayed release (DR/EC) 40 mg PO DAILY Patient Comments: TAKE 1 TABLET BY MOUTH ONCE DAILY. 30 MINUTES BEFORE EATING. Ozempic 1 mg/dose (4 mg/3 mL) pen injector 2 mg subcut QWEEK Probiotic 3 billion cell capsule 3,000 mmu cells PO QDAY Rx Instructions: administer with a meal ascorbic acid (vitamin C) 1,000 mg tablet 1 g PO QDAY cholecalciferol (vitamin D3) 50 mcg (2,000 unit) capsule 50 mcg PO QDAY B-complex with vitamin C Capsule 1 cap PO QDAY ferrous sulfate 325 mg (65 mg iron) tablet 325 mg PO QDAY AZO D-Mannose 500 mg capsule 1,300 mg PO QDAY fluticasone propionate [Flonase Allergy Relief] 50 mcg/actuation spray,suspension 1 spray intranasal QDAY Rx Instructions: administer into each nostril magnesium 250 mg tablet 250 mg PO QDAY pramipexole [Mirapex] 0.5 MG tablet 0.5 mg PO QHS duloxetine 30 MG capsule,delayed release(DR/EC) 30 mg PO BID metformin 1,000 mg tablet 1,000 mg PO BID aspirin 81 mg Tablet,Chewable 81 mg PO DAILY@0800 Qty: 30 1RF glipizide 5 mg tablet 5 mg PO BID levothyroxine 112 mcg tablet 112 mcg PO DAILY ezetimibe 10 mg tablet 10 mg PO DAILY Qty: 30 6RF metoprolol tartrate 25 mg tablet 25 mg PO BID Qty: 180 2RF clopidogrel 75 mg tablet 75 mg PO DAILY Qty: 90 3RF hydrochlorothiazide 25 mg tablet 25 mg PO DAILY Qty: 90 2RF Referrals / Follow Up: Ruth Saunders NP, IT PROGRAM ENGAGEMENT DIRECTOR-C [Primary Care Provider] - Within 1 Week Disposition Disposition (needs filled in before D/C Order can be placed): Home, Self Care
[2024-07-04] MEDS: DULoxetine Hcl 30 MG Capsule PO (12:30)
[2024-07-04] MEDS: Magnesium Chloride 64 MG Delay Rel.Tablet PO (12:30)
[2024-07-04] MEDS: Lactobacillis Acidophilus 1 CAP PO (12:30)
[2024-07-04] MEDS: Vitamin B Comp W-C Capsule 1 CAP PO (12:30)
[2024-07-04] MEDS: Ezetimibe 10 MG Tablet PO (12:31)
[2024-07-04] MEDS: Cholecalciferol (VIT D3) 25 MCG TABLET (1,000 UNITS) 50 MCG PO (12:31)
[2024-07-04] MEDS: Zinc Sulfate 50 mg zinc (220 mg) ORAL capsule PO (12:32)
[2024-07-04] MEDS: Ascorbic Acid 500 MG Tablet 1000 MG PO (12:32)
[2024-07-04] MEDS: Ferrous Sulfate 325 MG Tablet PO (12:34)
--- NOTE | 2024-07-04 13:44 | DS.PCM_ITS ---
Providers Date of Admission: 07/03/24 Primary Care Physician: LAUREEN Prado Reason For Visit: SUSPECTED EARLY LLA PNA LEUKOCYTOSIS RESPIRATORY Diagnosis Discharge Diagnosis (1) Pneumonia: Status: Acute Code(s): J18.9 - Pneumonia, unspecified organism Qualifiers: Pneumonia type: due to unspecified organism Laterality: left Lung location: lower lobe of lung Qualified Code(s): J18.9 - Pneumonia, unspecified organism (2) COPD with exacerbation: Status: Chronic Code(s): J44.1 - Chronic obstructive pulmonary disease with (acute) exacerbation (3) Respiratory insufficiency: Status: Acute Code(s): R06.89 - Other abnormalities of breathing (4) Long COVID: Status: Acute Code(s): U09.9 - Post COVID-19 condition, unspecified (5) Chest pain: Status: Acute Code(s): R07.9 - Chest pain, unspecified Qualifiers: Chest pain type: unspecified Qualified Code(s): R07.9 - Chest pain, unspecified (6) Hypoglycemia: Status: Acute Code(s): E16.2 - Hypoglycemia, unspecified (7) Adverse drug reaction: Status: Acute Code(s): T50.905A - Adverse effect of unspecified drugs, medicaments and biological substances, initial encounter Qualifiers: Encounter type: initial encounter Qualified Code(s): T50.905A - Adverse effect of unspecified drugs, medicaments and biological substances, initial encounter (8) Diabetes mellitus type 2 with complications, uncontrolled: Status: Acute (9) Coronary artery disease: Status: Chronic Code(s): I25.10 - Atherosclerotic heart disease of cherokee coronary artery without angina pectoris Qualifiers: Coronary Disease-Associated Artery/Lesion type: cherokee artery [place]ime vs. transplanted heart: cherokee heart Associated angina: with unspecified form of angina Qualified Code(s): I25.119 - Atherosclerotic heart disease of cherokee coronary artery with unspecified angina pectoris (10) Hx of right coronary artery stent placement: Status: Acute Code(s): Z95.5 - Presence of coronary angioplasty implant and graft (11) Cardiomyopathy: Status: Chronic Code(s): I42.9 - Cardiomyopathy, unspecified Qualifiers: Cardiomyopathy type: unspecified Qualified Code(s): I42.9 - Cardiomyopathy, unspecified (12) Overweight (BMI 25.0-29.9): Status: Acute Code(s): E66.3 - Overweight Medications at Discharge Home Medications duloxetine 30 mg capsule,delayed release 30 mg PO BID depression 08/11/16 pramipexole 0.5 mg tablet (Mirapex) 0.5 mg PO QHS 08/11/16 metformin 1,000 mg tablet 1,000 mg PO BID 01/05/23 aspirin 81 mg chewable tablet 81 mg PO DAILY@0800 #30 tabs 01/09/23 pantoprazole 40 mg tablet,delayed release 40 mg PO DAILY 02/07/23 ezetimibe 10 mg tablet 10 mg PO DAILY #30 tabs 06/08/23 semaglutide 1 mg/dose (4 mg/3 mL) subcutaneous pen injector (Ozempic) 2 mg subcut QWEEK 12/06/23 metoprolol tartrate 25 mg tablet 25 mg PO BID #180 tabs 03/11/24 clopidogrel 75 mg tablet 75 mg PO DAILY #90 tabs 04/07/24 hydrochlorothiazide 25 mg tablet 25 mg PO DAILY #90 tabs 04/09/24 B-complex with vitamin C 1 cap PO QDAY 05/07/24 ascorbic acid (vitamin C) 1,000 mg tablet 1 g PO QDAY 05/07/24 cholecalciferol (vitamin D3) 50 mcg (2,000 unit) capsule 50 mcg PO QDAY 05/07/24 d-mannose 500 mg capsule (AZO D-Mannose) 1,300 mg PO QDAY 05/07/24 ferrous sulfate 325 mg (65 mg iron) tablet 325 mg PO QDAY 05/07/24 fluticasone propionate 50 mcg/actuation nasal spray,suspension (Flonase Allergy Relief) 1 spray intranasal QDAY 05/07/24 lactobacillus combination no.4 3 billion cell capsule (Probiotic) 3,000 mmu cells PO QDAY 05/07/24 magnesium 250 mg tablet 250 mg PO QDAY 05/07/24 glipizide 5 mg tablet 5 mg PO BID 07/03/24 levothyroxine 112 mcg tablet 112 mcg PO DAILY 07/03/24 albuterol sulfate 90 mcg/actuation aerosol inhaler 1 puff inhalation Q6H PRN shortness of breath or wheezing #6.7 grams 07/04/24 azithromycin 500 mg tablet 500 mg PO DAILY 3 days #3 tabs 07/04/24 cefdinir 300 mg capsule 300 mg PO BID #14 caps 07/04/24 prednisone 20 mg tablet 40 mg (2 x 20 mg) PO DAILY #14 tabs 07/04/24 Hospital Course Operations None Procedures Stress test Summary of Care Provided Minutes Spent on Discharge: 39 Hospital Course: Per HPI: This patient is a 68-year-old female with a past medical history of essential hypertension; on metoprolol and hydrochlorothiazide, hyperlipidemia; on ezetimibe, hypothyroidism; on levothyroxine, overweight; with a BMI of 28.5 this admission, DM-2; of unknown control on metformin, glipizide and semaglutide, diabetic neuropathy, CAD; s/p NSTEMI with subsequent RCA stent (2022) on BASA and clopidogrel, history of cardiomyopathy, former history of tobacco abuse (quit ~16 years ago); with subsequent COPD, history of iron deficiency anemia, depression; on duloxetine, GERD; history of Anna's esophagus on pantoprazole, OA; with history of chronic neck/back pain and intermittent muscle spasms and recently diagnosed COVID-19 in late May 2024 with subsequent persistent lingering cough and unimproved shortness of breath with severe fatigue consistent with her PCP suspecting Long-COVID who presents to [facility] ER complaining of chest pain, shortness of breath and wheezing. Ms. Henderson reports her acute symptoms began ~2-3 days prior to admission with a notable increase in her dyspnea on exertion as she began to feel short of breath at rest. She also admits to chest pain that was Left-sided, sharp, pinching, nonradiating, [id number] and only lasting a few seconds each occurrence but happening ~3 times per day so she finally decided to come in for further evaluation and treatment. There is no report of associated fever, chills, nausea, vomiting, diarrhea, abdominal pain, sore throat or headache but she does admit to increasingly severe wheezing plus rhinorrhea and fatigue. In the ER she was noted to have a CTA of the chest which was negative for PE but did reveal slight debris in the airways of her Left lower lobe concerning for possible early Pneumonia with a corresponding Leukocytosis of 16K present on admission complicated by clinical evidence of AE COPD in the setting of recently diagnosed COVID-19 and subsequent persistent shortness of breath, fatigue and cough due to suspected Long-COVID with corresponding clinical evidence of Acute Respiratory Insufficiency with the patient requiring initiation of 2L NC compounded by laboratory evidence of Hypoglycemia of 66 mg/dL present on admission likely due to Adverse Drug Reaction to glipizide along with Atypical Chest Pain; with a nonspecific EKG and 2 normal troponins in ER and she was then admitted to the PCU for ongoing care for status expected to extend beyond 2 midnights. Hospital Course: 1. Chest pain rule out in the setting of mild left lower lobe pneumonia?6 8-year-old female presents to the hospital with chest pain. It is a little bit atypical and she does have chest pain to palpation though she says it is different than the pain that brought her in. In the ER she was found to be hypoxic however today she was on room air at rest. She had a stress test to rule out her chest pain since she had normal troponins and a nonischemic EKG, stress test was unremarkable and she had a recent echocardiogram so this was not repeated, her echo on 06/23/2024 had an EF of 55 to 60% with no diastolic dysfunction. Based on her oxygen requirements I did have an ambulatory pulse ox obtained which demonstrated a need for ambulatory oxygen at 3 L nasal cannula. I have reviewed the oxygen testing, and this patient qualifies for the home equipment and portability. The patient is mobile in the home and the community. Will plan to complete outpatient cefdinir and azithromycin for her pneumonia. CT of her chest demonstrated no PE but it did demonstrate COPD. She did quit smoking 16 years ago, however we will place her on a week of prednisone as well as provide her with an albuterol inhaler. She has been having difficulty since she had COVID in May. I discussed with her and her the plan for discharge today expressed understanding of the risk benefits of going home and would like to go home today. I discussed with him the possibility of staying 1 more day to see if we can get her off of oxygen completely however she would prefer to go home on oxygen. I recommend follow-up with her PCP in 3 to 5 days. 2. Type 2 diabetes, CAD status post stent, hyperlipidemia, hypothyroidism, iron deficiency anemia, anxiety, depression, GERD are all chronic medical conditions which complicate her care. Her home medications were continued where appropriate Physical Exam Narrative General: Alert, Oriented x3, Cooperative, No apparent distress HEENT: Atraumatic, PERRLA, EOMI, Normocephalic Oral: Moist Mucosa Neck: Supple, No JVD Lungs: Diminished, Normal air movement, No rhonchi, No wheeze, No rales Cardiovascular: Regular rate, Regular Rhythm, Normal S1, Normal S2, No murmurs Abdomen: Soft, Non Tender, Non-Distended, No Hepato-splenomegaly Extremities: No edema, Capillary Refill Less than 3 Seconds Skin: No rashes, No breakdown Musculoskeletal: No Tenderness to Palpation of Joints or Extremities Neurological: No focal neurological deficits, Motor Exam 5/5 strength throughout, Sensory exam intact to light touch and pain Psych/Mental Status: Normal Affect, Appropriate Weight / BMI Weight Weight: 206 lb 9.17 oz Body Mass Index (BMI) 31.4 ABG / Lab / Microbiology Data 07/04/24 10:35 07/04/24 10:35 Laboratory: Laboratory Results - last 24 hr 07/03/24 14:45: WBC 16.0 H, RBC 5.55 H, Hgb 15.3 H, Hct 48.2 H, MCV 86.8, MCH 27.6, MCHC 31.7 L, RDW Std Deviation 46.9 H, RDW Coeff of Jonel 14.7 H, Plt Count 288, MPV 9.5, Immature Gran % (Auto) 0.600, Neut % (Auto) 72.0 H, Lymph % (Auto) 17.9 L, [place] % (Auto) 7.2, Eos % (Auto) 1.7, Baso % (Auto) 0.6, Absolute Neuts (auto) 11.6 H, Absolute Lymphs (auto) 2.86, Nucleated RBC % 0, Platelet Estimate A, D-Dimer Quant (PE/DVT) Cancelled, Sodium 137, Potassium 3.9, Chloride 100, Carbon Dioxide 30.0, Anion Gap 7, BUN 12, Creatinine 0.80, Estim Creat Clear Calc 79.61, Est GFR (MDRD) Af Amer 92, Est GFR (MDRD) Non-Af 76, BUN/Creatinine Ratio 15.0, Glucose 66 L, Hemoglobin A1c 6.2 H, Calcium 10.0, Total Bilirubin 0.90, Direct Bilirubin 0.16, AST 40 H, ALT 20, Alkaline Phosphatase 101, Troponin I High Sens 5, Total Protein 8.0, Albumin 3.7, Globulin 4.3 H, Lipase 40 07/03/24 15:15: D-Dimer Quant (PE/DVT) 0.28 07/03/24 17:00: Troponin I High Sens 4, TSH 1.810 07/03/24 22:33: POC Glucose 128 H 07/03/24 23:00: Urine Color Straw, Urine Clarity Clear, Urine pH 7.0, Ur Specific [place] 1.005, Urine Protein Negative, Urine Glucose (UA) Normal, Urine Ketones Negative, Urine Occult Blood Negative, Urine Nitrite Negative, Urine Bilirubin Negative, Urine Urobilinogen Normal, Ur Leukocyte Esterase Negative, Urine RBC 0 SEEN, Urine WBC 0-5 SEEN, Ur Squamous Epith Cells 5-10 SEEN, Urine Bacteria 1+, Urine Mucus 0 SEEN 07/04/24 01:38: Troponin I High Sens 5 07/04/24 06:26: POC Glucose 239 H 07/04/24 10:35: WBC 11.7 H, RBC 5.11, Hgb 14.1, Hct 44.1, MCV 86.3, MCH 27.6, MCHC 32.0, RDW Std Deviation 46.2 H, RDW Coeff of Jonel 14.6, Plt Count 287, MPV 9.1, Immature Gran % (Auto) 0.800, Neut % (Auto) 89.2 H, Lymph % (Auto) 7.6 L, [place] % (Auto) 2.2, Eos % (Auto) 0.0, Baso % (Auto) 0.2, Absolute Neuts (auto) 10.4 H, Absolute Lymphs (auto) 0.89, Nucleated RBC % 0, Sodium 133 L, Potassium 4.2, Chloride 100, Carbon Dioxide 28.0, Anion Gap 5, BUN 10, Creatinine 0.89, Estim Creat Clear Calc 74.42, Est GFR (MDRD) Af Amer 81, Est GFR (MDRD) Non-Af 67, BUN/Creatinine Ratio 11.2, Glucose 242 H, Calcium 9.6, Phosphorus 2.8, Magnesium 1.7, Total Bilirubin 0.80, AST 21, ALT 19, Alkaline Phosphatase 92, Total Protein 7.8, Albumin 3.6, Globulin 4.2, Albumin/Globulin Ratio 0.9, Triglycerides 107, Cholesterol 199, LDL Cholesterol 97, VLDL Cholesterol 21, HDL Cholesterol 81 Microbiology: Microbiology 07/03/24 23:30 Mucosa - Nasopharyngeal Respiratory Panel (PCR) - Final 07/03/24 14:50 Mucosa - Nose SARS-CoV-2, Influenza & RSV (PCR) - Final Radiography Diagnostic Testing: Radiology Impression Chest X-Ray 07/03/24 15:35 IMPRESSION: Stable increased linear markings at the lung bases slightly worse on the left side suggestive of scarring. Electronically Signed: Nigel Fuller MD at 15:55 EST , Chest CTA 07/03/24 17:26 IMPRESSION: 1. No evidence of PE or aortic aneurysm or dissection. 2. COPD. No significant infiltrates or effusions. Likely slight debris in a few left lower lobe airways. RECOMMENDATIONS: Emphysema is an independent risk factor for lung neoplasm. Consider short-term yearly follow-up low dose CT lung cancer screening. Electronically Signed: Alexa Diego MD at 18:27 EST , D/C Instructions Discharge Diet: Low fat / Low cholesterol and Carb Control Diet Call your doctor if you observe: Fever of 101 or Higher, Shortness of breath, Dizziness, Fainting spells, Swelling in the ankles, Chest pain and Increased palpitations (irregular heartbeat) DC O2, CPAP, BIPAP Needs RN Home O2 Qualification: Home O2 Qualification: Is the patient on home oxygen No 07/04/24 11:56 Home O2 Qualification: AT REST 1- Pulse Ox at rest 93 07/04/24 11:56 Home O2 Qualification: WITH AMBULATION 1- Pulse Ox with ambulation 84 07/04/24 11:56 1- Oxygen Flow Rate with 0 07/04/24 11:56 ambulation 2- Pulse Ox with ambulation 87 07/04/24 11:56 2- Oxygen Flow Rate with 2 07/04/24 11:56 ambulation 3- Pulse Ox with ambulation 92 07/04/24 11:56 3- Oxygen Flow Rate with 3 07/04/24 11:56 ambulation Home O2 Discharge instructions: No Meaningful Use Info Meaningful Use Meaningful Use Diagnoses (Choose all that apply): None applicable Ischemic Stroke Statin Dosing Therapy Reference: STATIN DOSE THERAPY REFERENCE: * Patients > 75 years receive moderate or high dose statin therapy. * Patients 75 years or YOUNGER should receive HIGH intensity statin dose unless contraindicated. You will be required to document reason for non-treatment if statin daily dose does not meet guidelines. HIGH DOSE STATIN THERAPY DAILY Atorvastatin > than or = to 40 mg Rosuvastatin > than or = to 20 mg Amlodipine + Atorvastatin > than or = to 2.5/40 mg Ezetimibe + Simvastatin 10/80 mg Simvastatin 80mg Discharge Plan Admission Admit Date/Time: 07/03/24 20:19 Attending Provider: Solomon Osborne Primary Care Provider: Ruth Saunders NP Consulting Providers: Rj Barnhart Instructions Patient Instructions: COPD Diabetes, Chronic Lung Disease Avoid These Additional Instructions / Restrictions: 3L NC with activity Discharge Orders/Prescriptions Prescriptions: New cefdinir 300 mg capsule 300 mg PO BID Qty: 14 0RF azithromycin 500 mg tablet 500 mg PO DAILY 3 Days Qty: 3 0RF prednisone 20 mg tablet 40 mg PO DAILY Qty: 14 0RF albuterol sulfate 90 mcg/actuation HFA aerosol inhaler 1 puff inhalation Q6H PRN (Reason: shortness of breath or wheezing) Qty: 6.7 0RF Continued pantoprazole 40 mg tablet,delayed release (DR/EC) 40 mg PO DAILY Patient Comments: TAKE 1 TABLET BY MOUTH ONCE DAILY. 30 MINUTES BEFORE EATING. Ozempic 1 mg/dose (4 mg/3 mL) pen injector 2 mg subcut QWEEK Probiotic 3 billion cell capsule 3,000 mmu cells PO QDAY Rx Instructions: administer with a meal ascorbic acid (vitamin C) 1,000 mg tablet 1 g PO QDAY cholecalciferol (vitamin D3) 50 mcg (2,000 unit) capsule 50 mcg PO QDAY B-complex with vitamin C Capsule 1 cap PO QDAY ferrous sulfate 325 mg (65 mg iron) tablet 325 mg PO QDAY AZO D-Mannose 500 mg capsule 1,300 mg PO QDAY fluticasone propionate [Flonase Allergy Relief] 50 mcg/actuation spray,suspension 1 spray intranasal QDAY Rx Instructions: administer into each nostril magnesium 250 mg tablet 250 mg PO QDAY pramipexole [Mirapex] 0.5 MG tablet 0.5 mg PO QHS duloxetine 30 MG capsule,delayed release(DR/EC) 30 mg PO BID metformin 1,000 mg tablet 1,000 mg PO BID aspirin 81 mg Tablet,Chewable 81 mg PO DAILY@0800 Qty: 30 1RF glipizide 5 mg tablet 5 mg PO BID levothyroxine 112 mcg tablet 112 mcg PO DAILY ezetimibe 10 mg tablet 10 mg PO DAILY Qty: 30 6RF metoprolol tartrate 25 mg tablet 25 mg PO BID Qty: 180 2RF clopidogrel 75 mg tablet 75 mg PO DAILY Qty: 90 3RF hydrochlorothiazide 25 mg tablet 25 mg PO DAILY Qty: 90 2RF Referrals / Follow Up: Ruth Saunders NP, [facility] [Primary Care Provider] - Within 1 Week Disposition Disposition (needs filled in before D/C Order can be placed): Home, Self Care Charges/Coding Visit Charges Inpatient E&M: 89039 Disch Hosp >30min
--- NOTE | 2024-07-04 13:48 | CASEMGMT ---
PO GIL NOTE: Home O2 amb testing has been completed. Pt qualifies for home O2 @ 3 L/M w/exertion. Script obtained from Dr Osborne and [place] [facility] [place] [employer]. Crow from [facility], made aware, and to room at this time to deliver portable O2 tank. Narciso OROURKE RN CM
[2024-07-05 17:16] LABS: Bedside Glucose 194 mg/dL (74-106)
== END 2024-07-04 14:17 | disposition home or self-care (01) | DRG 190 ==
LOC: ED 15:10 → PCU 20:12
PROVIDERS: Physician Assistant; Admitting Provider Internal Medicine; Emergency Provider Emergency Medicine; PCP Nurse Practitioner Adult Health; Visit Provider Family Medicine
DX: J44.0 Chronic obstructive pulmonary disease with (acute) lower respiratory infection (principal); J18.9 Pneumonia, unspecified organism; E11.40 Type 2 diabetes mellitus with diabetic neuropathy, unspecified; E03.9 Hypothyroidism, unspecified; D50.9 Iron deficiency anemia, unspecified; E11.649 Type 2 diabetes mellitus with hypoglycemia without coma; I10 Essential (primary) hypertension; F32.A Depression, unspecified; J44.1 Chronic obstructive pulmonary disease with (acute) exacerbation; E78.5 Hyperlipidemia, unspecified; I25.119 Atherosclerotic heart disease of native coronary artery with unspecified angina pectoris; I25.2 Old myocardial infarction; K21.9 Gastro-esophageal reflux disease without esophagitis; M19.90 Unspecified osteoarthritis, unspecified site; M54.2 Cervicalgia; M62.838 Other muscle spasm; E66.3 Overweight; R09.02 Hypoxemia; T38.3X5A Adverse effect of insulin and oral hypoglycemic [antidiabetic] drugs, initial encounter; G89.29 Other chronic pain; U09.9 Post COVID-19 condition, unspecified; R07.89 Other chest pain; Z87.891 Personal history of nicotine dependence; Z79.82 Long term (current) use of aspirin; Z79.02 Long term (current) use of antithrombotics/antiplatelets; Z79.899 Other long term (current) drug therapy; Z79.84 Long term (current) use of oral hypoglycemic drugs; Z79.890 Hormone replacement therapy; Z79.51 Long term (current) use of inhaled steroids; Z88.2 Allergy status to sulfonamides; Z88.1 Allergy status to other antibiotic agents; Z96.652 Presence of left artificial knee joint; Z95.5 Presence of coronary angioplasty implant and graft; Z90.49 Acquired absence of other specified parts of digestive tract; Z87.19 Personal history of other diseases of the digestive system; Z68.28 Body mass index [BMI] 28.0-28.9, adult
CPT/HCPCS: 36415; 71045; 71275; 78452; 80048; 80053; 80061; 80076; 81001; 82962; 83036; 83690; 83735; 84100; 84443; 84484; 85025; 85379; 87631; 87633; 93005; 93017; 99285; A9500; Q9967; A4216; J2785

== ENCOUNTER → 2025-03-31 | Outpatient (CLI) | payer MEDICARE, SELFPAY ==
[2023-04-06 09:07] VITALS: BMI 34.7
--- NOTE | 2025-03-31 11:51 | RAD_ITS ---
PROCEDURE: FOOT MIN 3 VIEWS 03/31/2025 REASON FOR EXAM: LEFT FOOT PAIN TECHNIQUE: Procedure Code: RADFO Modality: DX Procedure: FOOT MIN 3 VIEWS Laterality: Left foot COMPARISON: None FINDINGS: Bones: Nondisplaced transverse fracture of the distal aspect of the 5th metatarsal. Joints: Normal alignment. Soft tissues: Soft tissue swelling. Other: RAD/Foot min 3 Views IMPRESSION: There is an undisplaced transverse fracture of the distal portion of the 5th me tatarsal with overlying soft tissue swelling. Reading Location: [place] [id number]
== END | disposition home or self-care (01) ==
LOC: MTRAD 11:51
PROVIDERS: PCP Nurse Practitioner Adult Health; Referring Provider Physician Assistant; Visit Provider Physician Assistant
DX: M79.672 Pain in left foot (principal)
CPT/HCPCS: 73630